=== PATIENT | female | born 1970 | race Caucasian/White ===

== ENCOUNTER → 2017-06-29 10:28 | Outpatient (CLI) | payer MEDICARE, SELFPAY ==
--- NOTE | 2017-06-29 11:07 | RAD_ITS ---
STUDY: X-RAY - LEFT SHOULDER REASON FOR EXAM: Female, 47 years old. LEFT POSTERIOR SHOULDER PAIN X 1 YEAR TECHNIQUE: 4 view(s) of the shoulder. COMPARISON: None. FINDINGS: Normal glenohumeral articulation. Normal acromioclavicular joint. Normal acromion. Normal humeral head and visualized proximal humerus. The soft tissue structures are unremarkable. Normal visualized pulmonary apex. RAD/Shoulder min 2 Views IMPRESSION: Normal x-ray examination of the shoulder. Electronically Signed: Jarocho Shell MD at 17:51 EST , Service support ,
== END ==
PROVIDERS: Family Provider Family Medicine; PCP Family Medicine; Visit Provider Family Medicine
DX: M25.512 Pain in left shoulder (principal)
CPT/HCPCS: 73030

== ENCOUNTER → 2018-03-06 15:39 | Outpatient (CLI) | payer MEDICARE, SELFPAY ==
--- NOTE | 2018-03-06 15:52 | RAD_ITS ---
STUDY: X-RAY - RIGHT ANKLE REASON FOR EXAM: Female, 47 years old. Right ankle pain. TECHNIQUE: 3 view(s) of the ankle. COMPARISON: None. FINDINGS: Normal visualized distal tibia and fibula. Normal medial and lateral malleoli. Normal tibiotalar articulation and ankle mortise. Normal visualized talus and calcaneus. The visualized subtalar, talonavicular, calcaneocuboid and tarsal articulations are normal. The soft tissue structures are unremarkable. RAD/Ankle min 3 Views IMPRESSION: Normal x-ray examination of the right ankle. Electronically Signed: Aman York MD at 11:54 EDT , Service support ,
--- NOTE | 2018-03-06 16:00 | RAD_ITS ---
STUDY: X-RAY - CERVICAL SPINE REASON FOR EXAM: Female, 47 years old. Cervical spine pain. TECHNIQUE: 5 view(s) of the cervical spine were obtained. COMPARISON: None FINDINGS: Normal anterior atlantoaxial articulation. Normal odontoid process. Normal cervical lordosis. Normal vertebral bodies and endplates. Normal disc space heights. Normal visualized intervertebral neuroforamina. The soft tissue structures are unremarkable. RAD/Cerv Spine 4 or 5 Views IMPRESSION: Normal x-ray examination of the visualized cervical spine. Electronically Signed: Aman York MD at 11:56 EDT , Service support ,
== END ==
PROVIDERS: Family Provider Family Medicine; PCP Family Medicine; Referring Provider Family Medicine; Visit Provider Family Medicine
DX: M54.2 Cervicalgia (principal); M19.071 Primary osteoarthritis, right ankle and foot; M15.9 Polyosteoarthritis, unspecified
CPT/HCPCS: 72050; 73610

== ENCOUNTER → 2018-05-09 07:43 | Outpatient (CLI) | payer MEDICARE, SELFPAY ==
--- NOTE | 2018-05-09 07:46 | BI_ITS ---
MAMMOGRAPHY - BILATERAL SCREENING 3-D JAYLIN SYNTHESIS REASON FOR EXAM: Female, 47 years old. Bilateral Screening 3-D tomosynthesis PERTINENT HISTORY: No significant family history. TECHNIQUE: 2-D mammograms and 3-D Jaylin synthesis of the breast (s) were performed. CAD was performed. COMPARISON: May 02, 2017, November 30, 2016, July 22, 2015 FINDINGS: The breast composition is almost entirely fat. There are stable lymph nodes in both axillae. Scattered benign calcifications are seen. No dense spiculated masses or suspicious microcalcifications are identified. No architectural distortion is identified. There is no skin thickening or retraction. There has been no significant change since the prior study. BI/SCREENING MAMM (CAD), BILAT IMPRESSION: No mammographic signs of malignancy. Routine yearly mammograms recommended. ASSESSMENT CATEGORY: BIRADS Category 2: Benign. A letter regarding these results will be sent to the patient by the facility within 30 days. FOLLOW UP RECOMMENDATION: Yearly follow up mammogram recommended. (A) Approximately 10% of breast cancers are not detected by mammography. A normal mammogram should not delay biopsy of a clinically suspicious abnormality. Electronically Signed: Robson Stern MD at 11:01 EST , Service support ,
== END ==
PROVIDERS: Family Provider Family Medicine; PCP Family Medicine; Visit Provider Internal Medicine Hematology & Oncology
DX: Z12.31 Encounter for screening mammogram for malignant neoplasm of breast (principal); Z85.3 Personal history of malignant neoplasm of breast
CPT/HCPCS: 77063; 77067

== ENCOUNTER → 2018-06-25 10:14 | Outpatient (CLI) | payer MEDICARE, SELFPAY ==
[2018-05-15 13:16] VITALS: BMI 40.2
--- NOTE | 2018-06-25 10:22 | RAD_ITS ---
STUDY: X-RAY - PELVIS REASON FOR EXAM: Female, 48 years old. Arthritis, attention to SI joints TECHNIQUE: One view of the pelvis was obtained. COMPARISON: None. FINDINGS: There is a non-specific bowel gas pattern. Normal visualized soft tissue structures. Normal bilateral iliac wings, sacroiliac joints and visualized sacrum. Normal visualized bilateral superior and inferior pubic rami. Normal pubic symphysis. Normal ischial tuberosities. Normal visualized right femoral head. Normal right acetabulum. Normal right hip joint. Normal visualized left femoral head. Normal left acetabulum. Normal left hip joint. RAD/Pelvis 1 or 2 Views IMPRESSION: Normal x-ray examination of the pelvis. Electronically Signed: Vinicius Schwarz MD at 20:07 EST , Service support ,
[2018-06-25 13:01] LABS: Absolute Lymphocyte Count 2.32 X10^3/ul (0.83-4.51); Absolute Neutrophil Count 4.5 X10^3/uL (2.0-7.7); Basophil# 0.04 X10^3/uL; Basophil% 0.5 % (0-1); Eosinophil# 0.21 X10^3/uL; Eosinophils% 2.8 % (0-5); Hematocrit 39.2 % (37-47); Hemoglobin 12.5 g/dl (12.0-15.0); Lymphocyte # 2.32 X10^3/ul (4.0); Lymphocyte % 30.6 % (19-41); Mean Corp Hgb Conc 31.9 g/gl (32-36); Mean Corpuscular Volume 87.7 fL (81-99); Mean Platelet Vol. 11.5 fl (6.2-12.0); Monocyte# 0.49 X10^3/uL; Monocyte% 6.5 % (0-10); Neutrophil # 4.49 X10^3/uL (2.7-7.7); Neutrophil % 59.2 % (47-70); Platelet Count 345 K/mm3 (150-450); RBC Distribution Width CV 13.9 % (11.6-14.6); RBC Distribution Width SD 43.9 fl (35.1-43.9); Red Blood Count 4.47 M/mm3 (4.2-5.4); White Blood Count 7.6 K/mm3 (4.4-11.0)
[2018-06-25 13:02] LABS: AST(SGOT) 19 U/L (15-37); Alanine Aminotransfer ALT/SGPT 39 U/L (13-56); Albumin, Serum 3.9 g/dL (3.2-5.0); Alkaline Phosphatase 83 U/L (45-117); Anion Gap 8 (5-15); BUN 12 mg/dL (7-18); BUN/Creat Ratio 14.9 RATIO (10-20); Calcium,Total 8.8 mg/dL (8.5-10.1); Chloride 107 mmol/L (98-107); EST Glomerular Filtration Rate 81 mL/min (>60); Est Glom Filt Rate - Afr Amer 98 mL/min (>60); Globulin 4.1 g/dL (2.2-4.2); Glucose 101 mg/dL (74-106); LDH 171 U/L (84-246); POSITIVE COUNT NO; POSITIVE DIFFERENTIAL NO; POSITIVE MORPHOLOGY NO; Potassium 3.6 mmol/L (3.5-5.1); Rheumatoid Factor < 10.0 IU/mL (<15); Sodium Level 142 mmol/L (136-145)
[2018-06-25 13:03] LABS: Erythrocyte Sedimentation Rate 14 mm/hr (0-20)
[2018-06-27 19:45] LABS: ANTINUCLEAR ANTIBODIES DIRECT Negative (Negative)
[2018-07-02 13:22] LABS: QNTFERON TB Mitogen Value > 10.00 IU/mL (.); QNTFERON TB Nil Value 0.02 IU/mL (.); QNTFERON TB1+ Ag Value 0.78 IU/mL (.); QNTFERON TB2+ Ag Value 0.44 IU/mL (.)
[2018-07-02 14:24] LABS: CCP IgG Antibodies 6 units (0-19); HEPATITIS B SURFACE AG Negative (Negative); HLA B27 Negative (.); Hep B Surface Antibodies Non Reactive (.); Hep C Antibodies <0.1 s/co ratio (0.0-0.9); QNTIFERON TB Positive Criteria Positive (Negative)
== END ==
PROVIDERS: Family Provider Family Medicine; PCP Family Medicine; Referring Provider Internal Medicine Rheumatology; Visit Provider Internal Medicine Rheumatology
DX: M46.90 Unspecified inflammatory spondylopathy, site unspecified (principal); K21.9 Gastro-esophageal reflux disease without esophagitis; E23.2 Diabetes insipidus; E78.5 Hyperlipidemia, unspecified; M85.80 Other specified disorders of bone density and structure, unspecified site; C96.0 Multifocal and multisystemic (disseminated) Langerhans-cell histiocytosis; N63.10 Unspecified lump in the right breast, unspecified quadrant
CPT/HCPCS: 36415; 72170; 80053; 81374; 83615; 85025; 85652; 86038; 86140; 86200; 86431; 86480; 86706; 86803; 87340

== ENCOUNTER → 2018-09-10 | Outpatient (CLI) | payer MEDICARE, SELFPAY ==
[2018-05-15 13:16] VITALS: BMI 40.2
[2018-09-10 14:16] LABS: Absolute Lymphocyte Count 1.98 X10^3/ul (0.83-4.51); Absolute Neutrophil Count 4.7 X10^3/uL (2.0-7.7); Basophil# 0.04 X10^3/uL; Basophil% 0.5 % (0-1); Eosinophil# 0.19 X10^3/uL; Eosinophils% 2.6 % (0-5); Hematocrit 41.3 % (37-47); Hemoglobin 12.9 g/dl (12.0-15.0); Lymphocyte # 1.98 X10^3/ul (4.0); Mean Corp Hgb Conc 31.2 g/gl (32-36); Mean Corpuscular Hgb 27.6 pg (27.0-32.0); Mean Corpuscular Volume 88.2 fL (81-99); Mean Platelet Vol. 11.8 fl (6.2-12.0); Monocyte# 0.44 X10^3/uL; Neutrophil # 4.68 X10^3/uL (2.7-7.7); Neutrophil % 63.8 % (47-70); Platelet Count 337 K/mm3 (150-450); RBC Distribution Width CV 14.3 % (11.6-14.6); RBC Distribution Width SD 45.6 fl (35.1-43.9); Red Blood Count 4.68 M/mm3 (4.2-5.4); White Blood Count 7.3 K/mm3 (4.4-11.0)
[2018-09-10 14:17] LABS: POSITIVE COUNT NO; POSITIVE DIFFERENTIAL NO; POSITIVE MORPHOLOGY NO
[2018-09-10 14:28] LABS: ALB/GLOB Ratio 1.1 RATIO (0.9-2.4); AST(SGOT) 13 U/L (15-37); Alanine Aminotransfer ALT/SGPT 21 U/L (13-56); Albumin, Serum 4.1 g/dL (3.2-5.0); Alkaline Phosphatase 93 U/L (45-117); Anion Gap 8 (5-15); BUN 11 mg/dL (7-18); BUN/Creat Ratio 12.1 RATIO (10-20); Calcium,Total 9.1 mg/dL (8.5-10.1); Chloride 106 mmol/L (98-107); Creatinine, Serum 0.91 mg/dL (0.55-1.02); EST Glomerular Filtration Rate 70 mL/min (>60); Est Glom Filt Rate - Afr Amer 85 mL/min (>60); Globulin 3.8 g/dL (2.2-4.2); Glucose 87 mg/dL (74-106); Potassium 3.8 mmol/L (3.5-5.1); Protein, Total 7.9 g/dL (6.4-8.2); Sodium Level 145 mmol/L (136-145)
[2018-09-10 14:34] LABS: Thyroid Stim Hormone (TSH) 1.53 uIU/mL (0.358-3.74)
[2018-09-10 14:35] LABS: Vitamin D,25 Hydroxy 20.7 ng/mL (29.95-100.01)
== END | disposition home or self-care (01) ==
LOC: MTLAB 11:54
PROVIDERS: Internal Medicine Rheumatology; Family Provider Family Medicine; PCP Family Medicine; Referring Provider Family Medicine; Visit Provider Family Medicine
DX: M46.90 Unspecified inflammatory spondylopathy, site unspecified (principal); K21.9 Gastro-esophageal reflux disease without esophagitis; E23.2 Diabetes insipidus; E78.5 Hyperlipidemia, unspecified; M85.80 Other specified disorders of bone density and structure, unspecified site; C96.0 Multifocal and multisystemic (disseminated) Langerhans-cell histiocytosis; R53.83 Other fatigue
CPT/HCPCS: 36415; 80053; 82306; 84443; 85025

== ENCOUNTER → 2018-12-10 09:19 | Outpatient (CLI) | payer MEDICARE, SELFPAY ==
[2018-05-15 13:16] VITALS: BMI 40.2
[2018-12-10 10:14] LABS: Absolute Lymphocyte Count 2.38 X10^3/uL (0.83-4.51); Absolute Neutrophil Count 5.6 X10^3/uL (2.0-7.7); Basophil# 0.06 X10^3/uL; Basophil% 0.7 % (0-1); Eosinophil# 0.34 X10^3/uL; Eosinophils% 3.8 % (0-5); Hematocrit 37.7 % (37-47); Hemoglobin 11.9 g/dL (12.0-15.0); Lymphocyte # 2.38 X10^3/ul (4.0); Lymphocyte % 26.5 % (19-41); Mean Corp Hgb Conc 31.6 g/dL (32-36); Mean Corpuscular Hgb 28.3 pg (27.0-32.0); Mean Corpuscular Volume 89.5 fL (81-99); Mean Platelet Vol. 11.1 fl (6.2-12.0); Monocyte# 0.49 X10^3/uL; Monocyte% 5.5 % (0-10); NRBC Flagged by Analyzer 0 % (0-5); Neutrophil # 5.63 X10^3/uL (2.7-7.7); Neutrophil % 62.5 % (47-70); Platelet Count 352 K/mm3 (150-450); RBC Distribution Width CV 13.6 % (11.6-14.6); RBC Distribution Width SD 44.3 fl (35.1-43.9); Red Blood Count 4.21 M/mm3 (4.2-5.4)
[2018-12-10 10:44] LABS: ALB/GLOB Ratio 0.9 RATIO (0.9-2.4); AST(SGOT) 15 U/L (15-37); Alanine Aminotransfer ALT/SGPT 26 U/L (13-56); Albumin, Serum 3.4 g/dL (3.2-5.0); Alkaline Phosphatase 85 U/L (45-117); Anion Gap 4 (5-15); BUN 10 mg/dL (7-18); BUN/Creat Ratio 12.5 RATIO (10-20); Calcium,Total 8.7 mg/dL (8.5-10.1); Chloride 106 mmol/L (98-107); EST Glomerular Filtration Rate 81 mL/min (>60); Est Glom Filt Rate - Afr Amer 98 mL/min (>60); Globulin 3.6 g/dL (2.2-4.2); Glucose 96 mg/dL (74-106); Potassium 3.6 mmol/L (3.5-5.1); Sodium Level 138 mmol/L (136-145)
[2018-12-10 11:00] LABS: Vitamin D,25 Hydroxy 29.9 ng/mL (29.95-100.01)
== END ==
PROVIDERS: Internal Medicine Rheumatology; Family Provider Family Medicine; PCP Family Medicine; Referring Provider Family Medicine; Visit Provider Family Medicine
DX: E55.9 Vitamin D deficiency, unspecified (principal); M46.90 Unspecified inflammatory spondylopathy, site unspecified; K21.9 Gastro-esophageal reflux disease without esophagitis; E23.2 Diabetes insipidus; E78.5 Hyperlipidemia, unspecified; M85.80 Other specified disorders of bone density and structure, unspecified site; C96.0 Multifocal and multisystemic (disseminated) Langerhans-cell histiocytosis; Z79.899 Other long term (current) drug therapy
CPT/HCPCS: 36415; 80053; 82306; 85025

== ENCOUNTER → 2019-02-11 12:15 | Outpatient (CLI) | payer MEDICARE, SELFPAY ==
[2018-05-15 13:16] VITALS: BMI 40.2
[2019-02-11 14:37] LABS: Absolute Lymphocyte Count 2.33 X10^3/uL (0.83-4.51); Absolute Neutrophil Count 5.4 X10^3/uL (2.0-7.7); Basophil# 0.07 X10^3/uL; Basophil% 0.8 % (0-1); Eosinophil# 0.47 X10^3/uL; Eosinophils% 5.4 % (0-5); Hematocrit 36.7 % (37-47); Hemoglobin 11.5 g/dL (12.0-15.0); Lymphocyte # 2.33 X10^3/ul (4.0); Lymphocyte % 26.6 % (19-41); Mean Corp Hgb Conc 31.3 g/dL (32-36); Mean Corpuscular Hgb 28.4 pg (27.0-32.0); Mean Corpuscular Volume 90.6 fL (81-99); Mean Platelet Vol. 11.1 fl (6.2-12.0); Monocyte# 0.49 X10^3/uL; Monocyte% 5.6 % (0-10); NRBC Flagged by Analyzer 0 % (0-5); Neutrophil # 5.35 X10^3/uL (2.7-7.7); Platelet Count 315 K/mm3 (150-450); RBC Distribution Width SD 45.9 fl (35.1-43.9); Red Blood Count 4.05 M/mm3 (4.2-5.4); White Blood Count 8.8 K/mm3 (4.4-11.0)
[2019-02-11 14:48] LABS: ALB/GLOB Ratio 0.9 RATIO (0.9-2.4); AST(SGOT) 22 U/L (15-37); Alanine Aminotransfer ALT/SGPT 48 U/L (13-56); Albumin, Serum 3.5 g/dL (3.2-5.0); Alkaline Phosphatase 89 U/L (45-117); Anion Gap 6 (5-15); BUN 11 mg/dL (7-18); BUN/Creat Ratio 14.8 RATIO (10-20); Calcium,Total 9.2 mg/dL (8.5-10.1); Chloride 105 mmol/L (98-107); Creatinine, Serum 0.74 mg/dL (0.55-1.02); EST Glomerular Filtration Rate 88 mL/min (>60); Est Glom Filt Rate - Afr Amer 107 mL/min (>60); Globulin 3.8 g/dL (2.2-4.2); Glucose 105 mg/dL (74-106); Potassium 3.8 mmol/L (3.5-5.1); Protein, Total 7.3 g/dL (6.4-8.2); Sodium Level 141 mmol/L (136-145)
== END ==
PROVIDERS: Family Provider Family Medicine; PCP Family Medicine; Referring Provider Internal Medicine Rheumatology; Visit Provider Internal Medicine Rheumatology
DX: M46.90 Unspecified inflammatory spondylopathy, site unspecified (principal); K21.9 Gastro-esophageal reflux disease without esophagitis; Z79.899 Other long term (current) drug therapy
CPT/HCPCS: 36415; 80053; 85025

== ENCOUNTER → 2019-05-12 13:31 | Outpatient (CLI) | payer MEDICARE, SELFPAY ==
[2018-05-15 13:16] VITALS: BMI 40.2
[2019-05-12 15:23] LABS: Absolute Lymphocyte Count 2.41 X10^3/uL (0.83-4.51); Absolute Neutrophil Count 4.1 X10^3/uL (2.0-7.7); Basophil# 0.06 X10^3/uL; Basophil% 0.8 % (0-1); Eosinophils% 4.1 % (0-5); Hematocrit 38.8 % (37-47); Hemoglobin 12.2 g/dL (12.0-15.0); Lymphocyte # 2.41 X10^3/ul (4.0); Lymphocyte % 33.3 % (19-41); Mean Corp Hgb Conc 31.4 g/dL (32-36); Mean Corpuscular Hgb 28.7 pg (27.0-32.0); Mean Corpuscular Volume 91.3 fL (81-99); Mean Platelet Vol. 11.2 fl (6.2-12.0); Monocyte# 0.39 X10^3/uL; Monocyte% 5.4 % (0-10); NRBC Flagged by Analyzer 0 % (0-5); Neutrophil # 4.05 X10^3/uL (2.7-7.7); Platelet Count 356 K/mm3 (150-450); RBC Distribution Width CV 13.3 % (11.6-14.6); RBC Distribution Width SD 43.9 fl (35.1-43.9); Red Blood Count 4.25 M/mm3 (4.2-5.4); White Blood Count 7.2 K/mm3 (4.4-11.0)
[2019-05-12 15:29] LABS: ALB/GLOB Ratio 0.9 RATIO (0.9-2.4); AST(SGOT) 30 U/L (15-37); Alanine Aminotransfer ALT/SGPT 56 U/L (13-56); Albumin, Serum 3.6 g/dL (3.2-5.0); Alkaline Phosphatase 97 U/L (45-117); Anion Gap 3 (5-15); BUN 10 mg/dL (7-18); BUN/Creat Ratio 12.3 RATIO (10-20); Calcium,Total 9.2 mg/dL (8.5-10.1); Chloride 109 mmol/L (98-107); Creatinine, Serum 0.81 mg/dL (0.55-1.02); EST Glomerular Filtration Rate 80 mL/min (>60); Est Glom Filt Rate - Afr Amer 97 mL/min (>60); Glucose 83 mg/dL (74-106); LDH 170 U/L (84-246); Potassium 3.8 mmol/L (3.5-5.1); Protein, Total 7.6 g/dL (6.4-8.2); Sodium Level 143 mmol/L (136-145)
[2019-05-12 15:50] LABS: Erythrocyte Sedimentation Rate 12 mm/hr (0-20)
== END ==
PROVIDERS: Internal Medicine Hematology & Oncology; Family Provider Family Medicine; PCP Family Medicine; Referring Provider Internal Medicine Rheumatology; Visit Provider Internal Medicine Rheumatology
DX: C96.0 Multifocal and multisystemic (disseminated) Langerhans-cell histiocytosis (principal); M46.90 Unspecified inflammatory spondylopathy, site unspecified; K21.9 Gastro-esophageal reflux disease without esophagitis; E23.2 Diabetes insipidus; Z79.899 Other long term (current) drug therapy
CPT/HCPCS: 36415; 80053; 83615; 85025; 85652; 86140

== ENCOUNTER → 2019-05-14 15:16 | Outpatient (CLI) | payer MEDICARE, SELFPAY ==
[2018-05-15 13:16] VITALS: BMI 40.2
--- NOTE | 2019-05-14 15:16 | BI_ITS ---
MAMMOGRAPHY - BILATERAL SCREENING 3-D TOMOSYNTHESIS REASON FOR EXAM: Female, 48 years old. fam hx mat grt gma -- RT PORT SCAR -- BILAT MOLES MARKED PERTINENT HISTORY: No significant family history. TECHNIQUE: 2-D mammograms and 3-D Tomosynthesis of the breast (s) were performed. CAD was performed. COMPARISON: May 09, 2018. FINDINGS: The breast composition is almost entirely fat. Scattered benign calcifications are seen. No dense spiculated masses or suspicious microcalcifications are identified. No architectural distortion is identified. There is no skin thickening or retraction. There has been no significant change since the prior study. BI/SCREEN MAMM (CAD) W/JAYLIN BILAT IMPRESSION: No mammographic signs of malignancy. Routine yearly mammograms recommended. ASSESSMENT CATEGORY: BIRADS Category 2: Benign. A letter regarding these results will be sent to the patient by the facility within 30 days. FOLLOW UP RECOMMENDATION: Yearly follow up mammogram recommended. (A) Approximately 10% of breast cancers are not detected by mammography. A normal mammogram should not delay biopsy of a clinically suspicious abnormality. Electronically Signed: Fahad Clement MD at 16:41 EST , Service support ,
--- NOTE | 2019-05-14 15:21 | BD_ITS ---
STUDY: DUAL ENERGY X-RAY ABSORPTIOMETRY / DXA REASON FOR EXAM: Female, 48 years old. PT NEVER MENSTRUATED -- HX OF ESTROGEN USE -- HX OF SMOKING -- TAKES CALCIUM AND MULTIVITAMIN IRREGULARLY -- HX OF TAKING ACTONEL IN PAST FOR 1 YR -- DOES VERY LITTLE EXERCISE -- HX OF BILATERAL WRIST FX''s WITH SURGERY -- NO CAROLYNE TECHNIQUE: Bone Mineral Density (BMD) measurements of lumbar spine and bilateral hips were obtained. COMPARISON: Comparison is made with prior study dated April 09, 2017. FINDINGS: Lumbar Spine (L1-L4): g/cm2 (1.027) / T-score (-1.3) / Z-score (-1.0) Findings are suggestive of osteopenia with a low fracture risk. Left Femur Total: g/cm2 (0.926) / T-score (-0.6) / Z-score (-0.2) Left Femoral Neck: g/cm2 (0.947) / T-score (-0.7) / Z-score (0.1) Right Femur Total: g/cm2 (1.026) / T-score (0.1) / Z-score (0.6) Right Femoral Neck: g/cm2 (0.910) / T-score (-0.9) / Z-score (-0.2) The T-Scores on the most recent prior examination were: Lumbar Spine (L1-L4): There has been improvement of bone density since the previous examination. Left Femur Total: which represents an improvement of 6.3%. Right Femur Total: which represents an improvement of 3.7%. BD/Dexa Bone Density Study IMPRESSION: The patient is considered osteopenic as outlined below according to World Fco Organization (WHO) criteria with a low fracture risk. There has been improvement of bone density since the previous examination. Reference Information: The T-score is the number of standard deviations above or below the standard which is normal for young adults at their peak bone mineral density. The World Health Organization (WHO) interprets the T-scores as follows: Above -1 Normal bone density Between -1 and -2.5 Osteopenia Equal to / or below -2.5 Osteoporosis As a practical clinical guideline, osteopenia may be graded as follows: Mild -1 through -1.5 Moderate -1.6 through -2.0 Severe -2.1 through -2.4 The Z-score is the number of standard deviations above or below age-matched controls. A Z-score of less than -1.5 would be considered abnormal. References: 1. NIH Osteoporosis and Related Bone Diseases http://www.osteo.org 2. International Society for Clinical Densitometry http://www.iscd.org 3. National Osteoporosis Foundation http://www.nof.org Electronically Signed: Alex Tijerina, at 12:24 EST , Service support ,
== END ==
PROVIDERS: Family Provider Family Medicine; PCP Family Medicine; Referring Provider Internal Medicine Hematology & Oncology; Visit Provider Internal Medicine Hematology & Oncology
DX: Z13.820 Encounter for screening for osteoporosis (principal); M85.80 Other specified disorders of bone density and structure, unspecified site; Z12.31 Encounter for screening mammogram for malignant neoplasm of breast
CPT/HCPCS: 77063; 77067; 77080

== ENCOUNTER → 2019-09-23 10:32 | Outpatient (CLI) | payer MEDICARE, SELFPAY ==
[2019-05-21 13:00] VITALS: BMI 39.8
[2019-09-23 12:39] LABS: Erythrocyte Sedimentation Rate 15 mm/hr (0-20)
[2019-09-23 12:41] LABS: Absolute Lymphocyte Count 2.13 X10^3/uL (0.83-4.51); Absolute Neutrophil Count 5.3 X10^3/uL (2.0-7.7); Basophil# 0.06 X10^3/uL; Basophil% 0.7 % (0-1); Eosinophil# 0.39 X10^3/uL; Eosinophils% 4.7 % (0-5); Hemoglobin 12.2 g/dL (12.0-15.0); Lymphocyte # 2.13 X10^3/ul (4.0); Lymphocyte % 25.6 % (19-41); Mean Corp Hgb Conc 32.1 g/dL (32-36); Mean Corpuscular Hgb 28.6 pg (27.0-32.0); Mean Platelet Vol. 11.1 fl (6.2-12.0); Monocyte# 0.45 X10^3/uL; Monocyte% 5.4 % (0-10); NRBC Flagged by Analyzer 0 % (0-5); Neutrophil # 5.26 X10^3/uL (2.7-7.7); Neutrophil % 63.1 % (47-70); Platelet Count 324 K/mm3 (150-450); RBC Distribution Width CV 13.4 % (11.6-14.6); RBC Distribution Width SD 43.4 fl (35.1-43.9); Red Blood Count 4.27 M/mm3 (4.2-5.4); White Blood Count 8.3 K/mm3 (4.4-11.0)
[2019-09-23 12:50] LABS: ALB/GLOB Ratio 0.9 RATIO (0.9-2.4); AST(SGOT) 28 U/L (15-37); Alanine Aminotransfer ALT/SGPT 52 U/L (13-56); Albumin, Serum 3.5 g/dL (3.2-5.0); Alkaline Phosphatase 100 U/L (45-117); Anion Gap 7 (5-15); BUN 10 mg/dL (7-18); BUN/Creat Ratio 12.3 RATIO (10-20); Calcium,Total 9.2 mg/dL (8.5-10.1); Chloride 101 mmol/L (98-107); Creatinine, Serum 0.82 mg/dL (0.55-1.02); EST Glomerular Filtration Rate 79 mL/min (>60); Est Glom Filt Rate - Afr Amer 96 mL/min (>60); Glucose 113 mg/dL (74-106); Potassium 3.7 mmol/L (3.5-5.1); Protein, Total 7.5 g/dL (6.4-8.2); Sodium Level 137 mmol/L (136-145)
== END ==
PROVIDERS: PCP Family Medicine; Referring Provider Internal Medicine Rheumatology; Visit Provider Internal Medicine Rheumatology
DX: M46.90 Unspecified inflammatory spondylopathy, site unspecified (principal); K21.9 Gastro-esophageal reflux disease without esophagitis; E23.2 Diabetes insipidus; E78.5 Hyperlipidemia, unspecified; M85.80 Other specified disorders of bone density and structure, unspecified site; C96.0 Multifocal and multisystemic (disseminated) Langerhans-cell histiocytosis; Z79.899 Other long term (current) drug therapy
CPT/HCPCS: 36415; 80053; 85025; 85652; 86140

== ENCOUNTER → 2019-11-11 11:04 | Outpatient (CLI) | payer MEDICARE, SELFPAY ==
[2019-05-21 13:00] VITALS: BMI 39.8
--- NOTE | 2019-11-11 11:26 | RAD_ITS ---
STUDY: X-RAY - LUMBAR SPINE REASON FOR EXAM: Female, 49 years old. PAIN IN LOWER BACK INTO LEFT HIP POSTERIORLY FOR 3 WEEKS. NO KNOWN INJURY. TECHNIQUE: 5 view(s) of the lumbar spine were obtained. COMPARISON: 08/28/2013 FINDINGS: Normal lumbar lordosis. There is no substantial scoliosis. There is a normal alignment of the vertebrae. Normal vertebral bodies and endplates. Normal disc space heights. The soft tissue structures are unremarkable. RAD/L/S Spine Min 4 Views IMPRESSION: Normal x-ray examination of the lumbar spine. Electronically Signed: Dickson Fostre MD at 12:20 EDT Tel , Service support ,
== END ==
PROVIDERS: PCP Family Medicine; Referring Provider Family Medicine; Visit Provider Family Medicine
DX: M54.5 Low back pain (principal)
CPT/HCPCS: 72110

== ENCOUNTER → 2019-11-20 10:40 | Outpatient (CLI) | payer MEDICARE, SELFPAY ==
[2019-05-21 13:00] VITALS: BMI 39.8
--- NOTE | 2019-11-20 10:43 | US_ITS ---
STUDY: RENAL ULTRASOUND - COMPLETE REASON FOR EXAM: Female, 49 years old. LT BACK PAIN TECHNIQUE: Ultrasound evaluation of the kidneys was performed with real-time and static delgado-scale imaging. COMPARISON: None. FINDINGS: RIGHT KIDNEY: Normal location of the right kidney, which is normal in size. The right kidney measures 10.2 cm x 5.5 cm x 3.9 cm. There is a normal cortex of the right kidney. The renal cortex measures 1.2 cm. There is no right renal mass or cyst. There are no right renal calculi. There is no right hydronephrosis. DISTAL RIGHT URETER: There is non-visualization of the distal right ureter. There is no demonstrated right ureterovesical junction calculus. There is no demonstrated right ureteral jet. LEFT KIDNEY: Normal location of the left kidney, which is normal in size. The left kidney measures 11 cm x 5.4 cm x 4.5 cm. There is a normal cortex of the left kidney. The renal cortex measures 1.2 cm. There is no left renal mass or cyst. There are no left renal calculi. There is no left hydronephrosis. DISTAL LEFT URETER: There is non-visualization of the distal left ureter. There is no demonstrated left ureterovesical junction calculus. There is no demonstrated left ureteral jet. BLADDER: The distended urinary bladder has a volume of 342 ml. There is a normal wall thickness of the distended urinary bladder. There is no demonstrated mass within the urinary bladder. There are no demonstrated bladder calculi. US/Kidney and Bladder IMPRESSION: Normal ultrasound of the kidneys and urinary bladder. Electronically Signed: Alex Tijerina, at 15:32 EDT , Service support ,
== END ==
PROVIDERS: PCP Family Medicine; Visit Provider Family Medicine
DX: M54.5 Low back pain (principal)
CPT/HCPCS: 76770

== ENCOUNTER → 2019-12-02 16:00 | Outpatient (CLI) | payer MEDICARE, SELFPAY ==
[2019-05-21 13:00] VITALS: BMI 39.8
[2019-12-02 17:53] LABS: Absolute Lymphocyte Count 2.68 X10^3/uL (0.83-4.51); Absolute Neutrophil Count 5.7 X10^3/uL (2.0-7.7); Basophil# 0.08 X10^3/uL; Basophil% 0.9 % (0-1); Eosinophil# 0.39 X10^3/uL; Eosinophils% 4.2 % (0-5); Hematocrit 39.3 % (37-47); Hemoglobin 12.3 g/dL (12.0-15.0); Lymphocyte # 2.68 X10^3/ul (4.0); Lymphocyte % 28.9 % (19-41); Mean Corp Hgb Conc 31.3 g/dL (32-36); Mean Corpuscular Hgb 29.1 pg (27.0-32.0); Mean Corpuscular Volume 92.9 fL (81-99); Monocyte# 0.44 X10^3/uL; Monocyte% 4.7 % (0-10); NRBC Flagged by Analyzer 0 % (0-5); Neutrophil # 5.66 X10^3/uL (2.7-7.7); Neutrophil % 61.1 % (47-70); Platelet Count 339 K/mm3 (150-450); RBC Distribution Width CV 13.7 % (11.6-14.6); RBC Distribution Width SD 46.8 fl (35.1-43.9); Red Blood Count 4.23 M/mm3 (4.2-5.4); White Blood Count 9.3 K/mm3 (4.4-11.0)
[2019-12-02 18:06] LABS: AST(SGOT) 28 U/L (15-37); Alanine Aminotransfer ALT/SGPT 55 U/L (13-56); Albumin, Serum 3.8 g/dL (3.2-5.0); Alkaline Phosphatase 106 U/L (45-117); Anion Gap 4 (5-15); BUN 10 mg/dL (7-18); BUN/Creat Ratio 10.9 RATIO (10-20); Calcium,Total 9.2 mg/dL (8.5-10.1); Chloride 104 mmol/L (98-107); Creatinine, Serum 0.92 mg/dL (0.55-1.02); EST Glomerular Filtration Rate 69 mL/min (>60); Est Glom Filt Rate - Afr Amer 83 mL/min (>60); Glucose 116 mg/dL (74-106); Potassium 3.6 mmol/L (3.5-5.1); Protein, Total 7.8 g/dL (6.4-8.2); Sodium Level 138 mmol/L (136-145)
== END ==
LOC: MTRAD 16:03 → MTLAB 16:03
PROVIDERS: PCP Family Medicine; Referring Provider Internal Medicine Rheumatology; Visit Provider Internal Medicine Rheumatology
DX: M46.90 Unspecified inflammatory spondylopathy, site unspecified (principal); K21.9 Gastro-esophageal reflux disease without esophagitis; E23.2 Diabetes insipidus; E78.5 Hyperlipidemia, unspecified; M85.80 Other specified disorders of bone density and structure, unspecified site; C96.0 Multifocal and multisystemic (disseminated) Langerhans-cell histiocytosis; Z79.899 Other long term (current) drug therapy
CPT/HCPCS: 36415; 80053; 85025

== ENCOUNTER → 2020-02-09 16:07 | Outpatient (CLI) | payer MEDICARE, SELFPAY ==
[2019-05-21 13:00] VITALS: BMI 39.8
[2020-02-09 18:11] LABS: Absolute Lymphocyte Count 2.77 X10^3/uL (0.83-4.51); Absolute Neutrophil Count 6.2 X10^3/uL (2.0-7.7); Basophil# 0.05 X10^3/uL; Basophil% 0.5 % (0-1); Eosinophil# 0.37 X10^3/uL; Eosinophils% 3.7 % (0-5); Hematocrit 39.6 % (37-47); Hemoglobin 12.3 g/dL (12.0-15.0); Lymphocyte # 2.77 X10^3/ul (4.0); Lymphocyte % 27.9 % (19-41); Mean Corp Hgb Conc 31.1 g/dL (32-36); Mean Corpuscular Hgb 28.5 pg (27.0-32.0); Mean Corpuscular Volume 91.9 fL (81-99); Mean Platelet Vol. 11.1 fl (6.2-12.0); Monocyte# 0.54 X10^3/uL; Monocyte% 5.4 % (0-10); NRBC Flagged by Analyzer 0 % (0-5); Neutrophil # 6.15 X10^3/uL (2.7-7.7); Neutrophil % 61.9 % (47-70); Platelet Count 379 K/mm3 (150-450); RBC Distribution Width CV 13.9 % (11.6-14.6); RBC Distribution Width SD 46.5 fl (35.1-43.9); Red Blood Count 4.31 M/mm3 (4.2-5.4); White Blood Count 9.9 K/mm3 (4.4-11.0)
[2020-02-09 18:34] LABS: ALB/GLOB Ratio 0.9 RATIO (0.9-2.4); AST(SGOT) 29 U/L (15-37); Alanine Aminotransfer ALT/SGPT 50 U/L (13-56); Albumin, Serum 3.9 g/dL (3.2-5.0); Alkaline Phosphatase 110 U/L (45-117); Anion Gap 6 (5-15); BUN 10 mg/dL (7-18); BUN/Creat Ratio 11.5 RATIO (10-20); Calcium,Total 9.4 mg/dL (8.5-10.1); Chloride 103 mmol/L (98-107); Creatinine, Serum 0.87 mg/dL (0.55-1.02); EST Glomerular Filtration Rate 73 mL/min (>60); Est Glom Filt Rate - Afr Amer 89 mL/min (>60); Globulin 4.2 g/dL (2.2-4.2); Glucose 90 mg/dL (74-106); Potassium 3.6 mmol/L (3.5-5.1); Protein, Total 8.1 g/dL (6.4-8.2); Sodium Level 138 mmol/L (136-145)
== END ==
PROVIDERS: PCP Family Medicine; Referring Provider Internal Medicine Rheumatology; Visit Provider Internal Medicine Rheumatology
DX: M46.90 Unspecified inflammatory spondylopathy, site unspecified (principal); Z79.899 Other long term (current) drug therapy; K21.9 Gastro-esophageal reflux disease without esophagitis; E23.2 Diabetes insipidus; E78.5 Hyperlipidemia, unspecified; M85.80 Other specified disorders of bone density and structure, unspecified site; C96.0 Multifocal and multisystemic (disseminated) Langerhans-cell histiocytosis
CPT/HCPCS: 36415; 80053; 85025

== ENCOUNTER → 2020-02-17 | Outpatient (CLI) | payer MEDICARE, SELFPAY ==
[2019-05-21 13:00] VITALS: BMI 39.8
--- NOTE | 2020-02-17 09:23 | RAD_ITS ---
STUDY: X-RAY - RIGHT SHOULDER REASON FOR EXAM: Female, 49 years old. PAIN IN RIGHT SHOULDER JOINT FOR A COUPLE OF WEEKS, NOT GETTING ANY BETTER. NO KNOWN INJURY. TECHNIQUE: 4 view(s) of the shoulder. COMPARISON: None. FINDINGS: Normal glenohumeral articulation. Normal acromioclavicular joint. Normal acromion. Normal humeral head and visualized proximal humerus. The soft tissue structures are unremarkable. Normal visualized pulmonary apex. RAD/Shoulder min 2 Views IMPRESSION: Normal x-ray examination of the shoulder. Electronically Signed: Lalit Carter MD ([place]) at 10:55 EDT , Service support ,
== END | disposition home or self-care (01) ==
LOC: MTRAD 09:21
PROVIDERS: PCP Family Medicine; Referring Provider Family Medicine; Visit Provider Family Medicine
DX: M25.511 Pain in right shoulder (principal)
CPT/HCPCS: 73030

== ENCOUNTER → 2020-04-25 15:49 | Outpatient (CLI) | payer MEDICARE, SELFPAY ==
[2019-05-21 13:00] VITALS: BMI 39.8
[2020-04-25 17:47] LABS: Absolute Lymphocyte Count 2.49 X10^3/uL (0.83-4.51); Basophil# 0.06 X10^3/uL; Basophil% 0.6 % (0-1); Eosinophil# 0.35 X10^3/uL; Eosinophils% 3.7 % (0-5); Hematocrit 37.8 % (37-47); Hemoglobin 11.7 g/dL (12.0-15.0); Lymphocyte # 2.49 X10^3/ul (4.0); Lymphocyte % 26.1 % (19-41); Mean Corpuscular Hgb 28.4 pg (27.0-32.0); Mean Corpuscular Volume 91.7 fL (81-99); Mean Platelet Vol. 10.7 fl (6.2-12.0); Monocyte# 0.58 X10^3/uL; Monocyte% 6.1 % (0-10); NRBC Flagged by Analyzer 0 % (0-5); Neutrophil # 6.03 X10^3/uL (2.7-7.7); Neutrophil % 63.2 % (47-70); Platelet Count 368 K/mm3 (150-450); RBC Distribution Width CV 13.7 % (11.6-14.6); RBC Distribution Width SD 45.6 fl (35.1-43.9); Red Blood Count 4.12 M/mm3 (4.2-5.4); White Blood Count 9.5 K/mm3 (4.4-11.0)
[2020-04-25 18:25] LABS: ALB/GLOB Ratio 0.9 RATIO (0.9-2.4); AST(SGOT) 21 U/L (15-37); Alanine Aminotransfer ALT/SGPT 45 U/L (13-56); Albumin, Serum 3.5 g/dL (3.2-5.0); Alkaline Phosphatase 103 U/L (45-117); Anion Gap 6 (5-15); BUN 12 mg/dL (7-18); BUN/Creat Ratio 14.7 RATIO (10-20); Calcium,Total 9.3 mg/dL (8.5-10.1); Chloride 105 mmol/L (98-107); Creatinine, Serum 0.82 mg/dL (0.55-1.02); EST Glomerular Filtration Rate 79 mL/min (>60); Est Glom Filt Rate - Afr Amer 95 mL/min (>60); Globulin 3.9 g/dL (2.2-4.2); Glucose 111 mg/dL (74-106); Potassium 3.5 mmol/L (3.5-5.1); Protein, Total 7.4 g/dL (6.4-8.2); Sodium Level 140 mmol/L (136-145)
== END ==
PROVIDERS: PCP Family Medicine; Referring Provider Internal Medicine Rheumatology; Visit Provider Internal Medicine Rheumatology
DX: M46.90 Unspecified inflammatory spondylopathy, site unspecified (principal); M18.0 Bilateral primary osteoarthritis of first carpometacarpal joints; K21.9 Gastro-esophageal reflux disease without esophagitis; E23.2 Diabetes insipidus; E78.5 Hyperlipidemia, unspecified; M85.80 Other specified disorders of bone density and structure, unspecified site; C96.0 Multifocal and multisystemic (disseminated) Langerhans-cell histiocytosis; Z79.899 Other long term (current) drug therapy
CPT/HCPCS: 36415; 80053; 85025

== ENCOUNTER → 2020-05-18 08:32 | Outpatient (CLI) | payer MEDICARE, SELFPAY ==
[2019-05-21 13:00] VITALS: BMI 39.8
--- NOTE | 2020-05-18 08:33 | BI_ITS ---
MAMMOGRAPHY - BILATERAL SCREENING REASON FOR EXAM: Female, 49 years old. Routine annual screening examination. PERTINENT HISTORY: Non-contributory. TECHNIQUE: Digital bilateral breast jaylin (3D mammographic acquisition) in the CC and MLO projections. 2-D mediolateral oblique (MLO) and craniocaudad (CC) views of both breasts were obtained. CAD: Full Field Digital Mammography with Computer Added Detection was performed. COMPARISON: Comparison is made with prior study dated 11/12/2019 and 05/09/2018. FINDINGS: Breast Composition: The breasts are almost entirely fatty. There are no dominant masses or suspicious calcifications. Stable benign-appearing bilateral axillary lymph nodes. No other significant abnormalities are identified. There has been no significant change since the prior study. BI/SCREEN MAMM (CAD) W/JAYLIN BILAT IMPRESSION: Stable bilateral screening mammogram. Yearly follow-up mammogram recommended. (A) ASSESSMENT CATEGORY: BIRADS Category 2: Benign. A letter regarding these results will be sent to the patient by the facility within 30 days. Approximately 10% of breast cancers are not detected by mammography. A normal mammogram should not delay biopsy of a clinically suspicious abnormality. [id number] Electronically Signed: Alex Tijerina, at 9:50 EST , Service support ,
== END ==
PROVIDERS: PCP Family Medicine; Referring Provider Internal Medicine Hematology & Oncology; Visit Provider Internal Medicine Hematology & Oncology
DX: Z12.31 Encounter for screening mammogram for malignant neoplasm of breast (principal)
CPT/HCPCS: 77063; 77067

== ENCOUNTER → 2020-08-05 16:25 | Outpatient (CLI) | payer MEDICARE, SELFPAY ==
[2020-05-23 11:33] VITALS: BMI 41.1
[2020-08-05 17:24] LABS: Absolute Lymphocyte Count 3.13 X10^3/uL (0.83-4.51); Absolute Neutrophil Count 8.4 X10^3/uL (2.0-7.7); Basophil# 0.08 X10^3/uL; Basophil% 0.6 % (0-1); Eosinophil# 0.37 X10^3/uL; Eosinophils% 2.9 % (0-5); Hematocrit 39.2 % (37-47); Hemoglobin 12.2 g/dL (12.0-15.0); Lymphocyte # 3.13 X10^3/ul (4.0); Lymphocyte % 24.8 % (19-41); Mean Corp Hgb Conc 31.1 g/dL (32-36); Mean Corpuscular Volume 93.1 fL (81-99); Mean Platelet Vol. 10.4 fl (6.2-12.0); Monocyte# 0.61 X10^3/uL; Monocyte% 4.8 % (0-10); NRBC Flagged by Analyzer 0 % (0-5); Neutrophil # 8.35 X10^3/uL (2.7-7.7); Neutrophil % 66.4 % (47-70); Platelet Count 373 K/mm3 (150-450); RBC Distribution Width CV 14.3 % (11.6-14.6); RBC Distribution Width SD 48.1 fl (35.1-43.9); Red Blood Count 4.21 M/mm3 (4.2-5.4); White Blood Count 12.6 K/mm3 (4.4-11.0)
[2020-08-05 17:50] LABS: ALB/GLOB Ratio 0.9 RATIO (0.9-2.4); AST(SGOT) 16 U/L (15-37); Alanine Aminotransfer ALT/SGPT 30 U/L (13-56); Albumin, Serum 3.6 g/dL (3.2-5.0); Alkaline Phosphatase 117 U/L (45-117); Anion Gap 6 (5-15); BUN 16 mg/dL (7-18); BUN/Creat Ratio 17.4 RATIO (10-20); Calcium,Total 9.1 mg/dL (8.5-10.1); Chloride 101 mmol/L (98-107); Creatinine, Serum 0.92 mg/dL (0.55-1.02); EST Glomerular Filtration Rate 69 mL/min (>60); Est Glom Filt Rate - Afr Amer 83 mL/min (>60); Globulin 4.1 g/dL (2.2-4.2); Glucose 100 mg/dL (74-106); Potassium 3.5 mmol/L (3.5-5.1); Protein, Total 7.7 g/dL (6.4-8.2); Sodium Level 138 mmol/L (136-145)
== END ==
PROVIDERS: PCP Family Medicine; Referring Provider Internal Medicine Rheumatology; Visit Provider Internal Medicine Rheumatology
DX: M46.90 Unspecified inflammatory spondylopathy, site unspecified (principal); M18.0 Bilateral primary osteoarthritis of first carpometacarpal joints; K21.9 Gastro-esophageal reflux disease without esophagitis; E23.2 Diabetes insipidus; E78.5 Hyperlipidemia, unspecified; M85.80 Other specified disorders of bone density and structure, unspecified site; C96.0 Multifocal and multisystemic (disseminated) Langerhans-cell histiocytosis; Z79.899 Other long term (current) drug therapy
CPT/HCPCS: 36415; 80053; 85025

== ENCOUNTER → 2020-11-09 10:51 | Outpatient (CLI) | payer MEDICARE, SELFPAY ==
[2020-05-23 11:33] VITALS: BMI 41.1
[2020-11-09 12:20] LABS: Absolute Lymphocyte Count 2.34 X10^3/uL (0.83-4.51); Absolute Neutrophil Count 5.8 X10^3/uL (2.0-7.7); Basophil# 0.08 X10^3/uL; Basophil% 0.9 % (0-1); Eosinophil# 0.29 X10^3/uL; Eosinophils% 3.2 % (0-5); Hematocrit 39.6 % (37-47); Hemoglobin 12.2 g/dL (12.0-15.0); Lymphocyte # 2.34 X10^3/ul (0.83-4.51); Lymphocyte % 25.7 % (19-41); Mean Corp Hgb Conc 30.8 g/dL (32-36); Mean Corpuscular Hgb 28.2 pg (27.0-32.0); Mean Corpuscular Volume 91.5 fL (81-99); Mean Platelet Vol. 11.2 fl (6.2-12.0); Monocyte# 0.54 X10^3/uL; Monocyte% 5.9 % (0-10); NRBC Flagged by Analyzer 0 % (0-5); Neutrophil # 5.78 X10^3/uL (2.7-7.7); Neutrophil % 63.5 % (47-70); Platelet Count 371 K/mm3 (150-450); RBC Distribution Width CV 14.5 % (11.6-14.6); RBC Distribution Width SD 48.5 fl (35.1-43.9); Red Blood Count 4.33 M/mm3 (4.2-5.4); White Blood Count 9.1 K/mm3 (4.4-11.0)
[2020-11-09 12:53] LABS: ALB/GLOB Ratio 0.9 RATIO (0.9-2.4); AST(SGOT) 19 U/L (15-37); Alanine Aminotransfer ALT/SGPT 24 U/L (13-56); Albumin, Serum 3.6 g/dL (3.2-5.0); Alkaline Phosphatase 102 U/L (45-117); Anion Gap 3 (5-15); BUN 11 mg/dL (7-18); BUN/Creat Ratio 11.8 RATIO (10-20); Calcium,Total 9.5 mg/dL (8.5-10.1); Chloride 107 mmol/L (98-107); Creatinine, Serum 0.93 mg/dL (0.55-1.02); EST Glomerular Filtration Rate 68 mL/min (>60); Est Glom Filt Rate - Afr Amer 82 mL/min (>60); Globulin 4.1 g/dL (2.2-4.2); Glucose 106 mg/dL (74-106); Potassium 3.7 mmol/L (3.5-5.1); Protein, Total 7.7 g/dL (6.4-8.2); Sodium Level 141 mmol/L (136-145)
== END ==
PROVIDERS: PCP Family Medicine; Referring Provider Internal Medicine Rheumatology; Visit Provider Internal Medicine Rheumatology
DX: M46.90 Unspecified inflammatory spondylopathy, site unspecified (principal); M18.0 Bilateral primary osteoarthritis of first carpometacarpal joints; K21.9 Gastro-esophageal reflux disease without esophagitis; E23.2 Diabetes insipidus; E78.5 Hyperlipidemia, unspecified; M85.80 Other specified disorders of bone density and structure, unspecified site; C96.0 Multifocal and multisystemic (disseminated) Langerhans-cell histiocytosis; Z79.899 Other long term (current) drug therapy
CPT/HCPCS: 36415; 80053; 85025

== ENCOUNTER → 2021-02-09 16:06 | Outpatient (CLI) | payer MEDICARE, SELFPAY ==
[2021-02-09 17:31] LABS: Absolute Lymphocyte Count 2.27 X10^3/uL (0.83-4.51); Absolute Neutrophil Count 6.3 X10^3/uL (2.0-7.7); Basophil# 0.06 X10^3/uL; Basophil% 0.6 % (0-1); Eosinophils% 3.2 % (0-5); Hematocrit 38.2 % (37-47); Lymphocyte # 2.27 X10^3/ul (0.83-4.51); Mean Corp Hgb Conc 31.4 g/dL (32-36); Mean Corpuscular Hgb 27.9 pg (27.0-32.0); Mean Corpuscular Volume 88.8 fL (81-99); Mean Platelet Vol. 11.4 fl (6.2-12.0); Monocyte# 0.47 X10^3/uL; NRBC Flagged by Analyzer 0 % (0-5); Neutrophil # 6.31 X10^3/uL (2.7-7.7); Neutrophil % 66.7 % (47-70); Platelet Count 380 K/mm3 (150-450); RBC Distribution Width CV 14.7 % (11.6-14.6); RBC Distribution Width SD 46.6 fl (35.1-43.9); White Blood Count 9.5 K/mm3 (4.4-11.0)
[2021-02-09 17:50] LABS: ALB/GLOB Ratio 0.8 RATIO (0.9-2.4); AST(SGOT) 23 U/L (15-37); Alanine Aminotransfer ALT/SGPT 40 U/L (13-56); Albumin, Serum 3.4 g/dL (3.2-5.0); Alkaline Phosphatase 101 U/L (45-117); Anion Gap 8 (5-15); BUN 10 mg/dL (7-18); BUN/Creat Ratio 11.3 RATIO (10-20); Calcium,Total 9.5 mg/dL (8.5-10.1); Chloride 102 mmol/L (98-107); Creatinine, Serum 0.89 mg/dL (0.55-1.02); EST Glomerular Filtration Rate 71 mL/min (>60); Est Glom Filt Rate - Afr Amer 86 mL/min (>60); Globulin 4.2 g/dL (2.2-4.2); Glucose 117 mg/dL (74-106); Potassium 3.6 mmol/L (3.5-5.1); Protein, Total 7.6 g/dL (6.4-8.2); Sodium Level 140 mmol/L (136-145)
== END ==
PROVIDERS: PCP Family Medicine; Referring Provider Internal Medicine Rheumatology; Visit Provider Internal Medicine Rheumatology
DX: M46.90 Unspecified inflammatory spondylopathy, site unspecified (principal); M18.0 Bilateral primary osteoarthritis of first carpometacarpal joints; K21.9 Gastro-esophageal reflux disease without esophagitis; E23.2 Diabetes insipidus; E78.5 Hyperlipidemia, unspecified; M85.80 Other specified disorders of bone density and structure, unspecified site; C96.0 Multifocal and multisystemic (disseminated) Langerhans-cell histiocytosis; Z79.899 Other long term (current) drug therapy
CPT/HCPCS: 36415; 80053; 85025

== ENCOUNTER → 2021-04-05 | Outpatient (CLI) | payer MEDICARE, SELFPAY ==
--- NOTE | 2021-04-04 16:30 | LES_PTH ---
PATIENT: KRISTEN CHEN LOC: [facility] U#:[id number] AGE/SX: 50/F ROOM: RE04/05/[address]: Dr. Jhonny Elias MD : 1970 BED: DIS: 04/05/2021 SPEC #: [id number] RECD: 04/05/21 10:04 STATUS: FEDERICO MICHELL #: [id number] TAMY: 04/04/21 16:[address]: Jhonny Elias DEPT: SURGICAL PATHOLOGY RECD BY: Radha Macias ENTERED: 04/05/21 10:31 SP TYPE: Lesion OTHR DR: Dr. Isma Glover, DO Tissues: Skin of eyelid, NOS Procedures: Surgery Specimen Level IV HEADER OPERATION: Removal of right lower lid lesion PRE-OP DIAGNOSIS: Right lower lid lesion TISSUE SUBMITTED: Right lower lid lesion MICROSCOPIC DIAGNOSIS Right lower lid lesion, biopsy: Atypical squamous epithelial lesion. 04/07/21 COMMENT Correlation with clinical findings and appropriate follow up are necessary. Complete excision of the lesion is suggested, if clinically indicated. Results are reported to Dr. Elias?s office on 04/07/21. MICROSCOPIC DESCRIPTION Slides are reviewed. GROSS DESCRIPTION Received is one container labeled with the patient name and designated right lower lid lesion. The specimen consists of a round piece of mendoza white skin that measures 0.3 x 0.3 x 0.2 cm. The specimen is totally submitted in one cassette. /SJ:cc 04/05/21 TC:5 CPT:15162
== END | disposition home or self-care (01) ==
LOC: LABSPEC 10:14
PROVIDERS: PCP Family Medicine; Visit Provider Ophthalmology
DX: D23.112 Other benign neoplasm of skin of right lower eyelid, including canthus (principal)
CPT/HCPCS: 88305

== ENCOUNTER → 2021-05-09 08:38 | Outpatient (CLI) | payer MEDICARE, SELFPAY ==
[2019-05-21 13:00] VITALS: BMI 39.8
[2021-05-09 09:49] LABS: Absolute Lymphocyte Count 2.75 X10^3/uL (0.83-4.51); Absolute Neutrophil Count 6.7 X10^3/uL (2.0-7.7); Basophil# 0.07 X10^3/uL; Basophil% 0.7 % (0-1); Eosinophil# 0.29 X10^3/uL; Eosinophils% 2.8 % (0-5); Hematocrit 39.7 % (37-47); Hemoglobin 12.3 g/dL (12.0-15.0); Lymphocyte # 2.75 X10^3/ul (0.83-4.51); Lymphocyte % 26.3 % (19-41); Mean Corpuscular Hgb 28.2 pg (27.0-32.0); Mean Corpuscular Volume 91.1 fL (81-99); Mean Platelet Vol. 10.7 fl (6.2-12.0); Monocyte# 0.58 X10^3/uL; Monocyte% 5.6 % (0-10); NRBC Flagged by Analyzer 0 % (0-5); Neutrophil # 6.68 X10^3/uL (2.7-7.7); Neutrophil % 63.9 % (47-70); Platelet Count 393 K/mm3 (150-450); RBC Distribution Width CV 14.5 % (11.6-14.6); RBC Distribution Width SD 47.8 fl (35.1-43.9); Red Blood Count 4.36 M/mm3 (4.2-5.4); White Blood Count 10.4 K/mm3 (4.4-11.0)
[2021-05-09 10:09] LABS: ALB/GLOB Ratio 0.8 RATIO (0.9-2.4); AST(SGOT) 16 U/L (15-37); Alanine Aminotransfer ALT/SGPT 30 U/L (13-56); Albumin, Serum 3.2 g/dL (3.2-5.0); Alkaline Phosphatase 93 U/L (45-117); Anion Gap 6 (5-15); BUN 8 mg/dL (7-18); BUN/Creat Ratio 10.2 RATIO (10-20); Calcium,Total 9.1 mg/dL (8.5-10.1); Chloride 106 mmol/L (98-107); Creatinine, Serum 0.78 mg/dL (0.55-1.02); EST Glomerular Filtration Rate 82 mL/min (>60); Est Glom Filt Rate - Afr Amer 100 mL/min (>60); Globulin 4.2 g/dL (2.2-4.2); Glucose 115 mg/dL (74-106); Potassium 3.7 mmol/L (3.5-5.1); Protein, Total 7.4 g/dL (6.4-8.2); Sodium Level 142 mmol/L (136-145)
== END ==
PROVIDERS: PCP Family Medicine; Visit Provider Internal Medicine Rheumatology
DX: M46.90 Unspecified inflammatory spondylopathy, site unspecified (principal); M18.0 Bilateral primary osteoarthritis of first carpometacarpal joints; K21.9 Gastro-esophageal reflux disease without esophagitis; E23.2 Diabetes insipidus; E78.5 Hyperlipidemia, unspecified; M85.80 Other specified disorders of bone density and structure, unspecified site; C96.0 Multifocal and multisystemic (disseminated) Langerhans-cell histiocytosis; Z79.899 Other long term (current) drug therapy
CPT/HCPCS: 36415; 80053; 85025

== ENCOUNTER 2021-07-13 09:57 | Outpatient (CLI) | payer MEDICARE, SELFPAY ==
--- NOTE | 2021-07-13 10:01 | BI_ITS ---
MAMMOGRAPHY - BILATERAL SCREENING REASON FOR EXAM: Female, 51 years old. Routine annual screening examination. PERTINENT HISTORY: Grandmother with breast cancer. TECHNIQUE: Digital bilateral breast jaylin (3D mammographic acquisition) in the CC and MLO projections. 2-D mediolateral oblique (MLO) and craniocaudad (CC) views of both breasts were obtained. CAD: Full Field Digital Mammography with Computer Added Detection was performed. COMPARISON: Comparison is made with prior study dated 05/18/2020 and 05/14/2019. FINDINGS: Breast Composition: The breasts are almost entirely fatty. There are no dominant masses or suspicious calcifications. Stable benign-appearing bilateral axillary lymph nodes. No other significant abnormalities are identified. There has been no significant change since the prior study. BI/SCRN MAMM (CAD)W/JAYLIN BILAT IMPRESSION: Stable bilateral screening mammogram. Yearly follow-up mammogram recommended. (A) ASSESSMENT CATEGORY: BIRADS Category 2: Benign. A letter regarding these results will be sent to the patient by the facility within 30 days. Approximately 10% of breast cancers are not detected by mammography. A normal mammogram should not delay biopsy of a clinically suspicious abnormality. [id number] Electronically Signed: Alex Tijerina MD at 12:20 EST ,
== END 2021-07-13 23:59 | disposition home or self-care (01) ==
LOC: OPBI 09:59
PROVIDERS: PCP Family Medicine; Visit Provider Internal Medicine Hematology & Oncology
DX: Z12.31 Encounter for screening mammogram for malignant neoplasm of breast (principal)
CPT/HCPCS: 77063; 77067

== ENCOUNTER 2021-08-10 16:18 | Outpatient (CLI) | payer MEDICARE, SELFPAY ==
[2021-08-10 17:54] LABS: Absolute Lymphocyte Count 2.78 X10^3/uL (0.83-4.51); Basophil# 0.08 X10^3/uL; Basophil% 0.9 % (0-1); Eosinophil# 0.37 X10^3/uL; Eosinophils% 4.2 % (0-5); Hematocrit 39.7 % (37-47); Hemoglobin 12.5 g/dL (12.0-15.0); Lymphocyte # 2.78 X10^3/ul (0.83-4.51); Lymphocyte % 31.8 % (19-41); Mean Corp Hgb Conc 31.5 g/dL (32-36); Mean Corpuscular Hgb 28.3 pg (27.0-32.0); Mean Corpuscular Volume 89.8 fL (81-99); Monocyte# 0.48 X10^3/uL; Monocyte% 5.5 % (0-10); NRBC Flagged by Analyzer 0 % (0-5); Neutrophil % 57.1 % (47-70); Platelet Count 394 K/mm3 (150-450); RBC Distribution Width CV 14.1 % (11.6-14.6); RBC Distribution Width SD 46.1 fl (35.1-43.9); Red Blood Count 4.42 M/mm3 (4.2-5.4); White Blood Count 8.8 K/mm3 (4.4-11.0)
[2021-08-10 18:26] LABS: ALB/GLOB Ratio 0.9 RATIO (0.9-2.4); AST(SGOT) 33 U/L (15-37); Alanine Aminotransfer ALT/SGPT 57 U/L (13-56); Albumin, Serum 3.6 g/dL (3.2-5.0); Alkaline Phosphatase 96 U/L (45-117); Anion Gap 5 (5-15); BUN 10 mg/dL (7-18); BUN/Creat Ratio 11.8 RATIO (10-20); Calcium,Total 9.1 mg/dL (8.5-10.1); Chloride 105 mmol/L (98-107); Creatinine, Serum 0.85 mg/dL (0.55-1.02); EST Glomerular Filtration Rate 75 mL/min (>60); Est Glom Filt Rate - Afr Amer 91 mL/min (>60); Glucose 125 mg/dL (74-106); Potassium 3.5 mmol/L (3.5-5.1); Protein, Total 7.6 g/dL (6.4-8.2); Sodium Level 140 mmol/L (136-145)
== END 2021-08-10 23:59 | disposition home or self-care (01) ==
LOC: MTLAB 16:19
PROVIDERS: PCP Family Medicine; Referring Provider Internal Medicine Rheumatology; Visit Provider Internal Medicine Rheumatology
DX: M46.90 Unspecified inflammatory spondylopathy, site unspecified (principal); C96.0 Multifocal and multisystemic (disseminated) Langerhans-cell histiocytosis; E23.2 Diabetes insipidus; M18.0 Bilateral primary osteoarthritis of first carpometacarpal joints; K21.9 Gastro-esophageal reflux disease without esophagitis; E78.5 Hyperlipidemia, unspecified; M85.80 Other specified disorders of bone density and structure, unspecified site; Z79.899 Other long term (current) drug therapy
CPT/HCPCS: 36415; 80053; 85025

== ENCOUNTER → 2021-09-19 | Outpatient (CLI) | payer MEDICARE, SELFPAY ==
--- NOTE | 2021-09-19 12:25 | BD_ITS ---
STUDY: DUAL ENERGY X-RAY ABSORPTIOMETRY / DXA REASON FOR EXAM: Female, 51 years old. M810. Amenorrhea. TECHNIQUE: Bone Mineral Density (BMD) measurements of lumbar spine and bilateral hips were obtained. COMPARISON: Comparison is made with prior study dated 05/14/2019. FINDINGS: Lumbar Spine (L1-L4): g/cm2 (0.815) / T-score (-2.1) / Z-score (-1.3) Findings are suggestive of osteopenia with a high fracture risk. Left Femur Total: g/cm2 (0.862) / T-score (-0.7) / Z-score (-0.1) Left Femoral Neck: g/cm2 (0.705) / T-score (-1.3) / Z-score (-0.5) Right Femur Total: g/cm2 (0.922) / T-score (-0.2) / Z-score (0.4) Right Femoral Neck: g/cm2 (0.730) / T-score (-1.1) / Z-score (-0.3) The T-Scores on the most recent prior examination were: Lumbar Spine (L1-L4): There has been worsening of bone density since the previous examination. Left Femur Total: which represents no significant change. . Right Femur Total: which represents a worsening of 3.9%. BD/Dexa Bone Density Study IMPRESSION: The patient is considered osteopenic as outlined below according to World Fco Organization (WHO) criteria with a high fracture risk. There has been worsening of bone density since the previous examination. Reference Information: The T-score is the number of standard deviations above or below the standard which is normal for young adults at their peak bone mineral density. The World Health Organization (WHO) interprets the T-scores as follows: Above -1 Normal bone density Between -1 and -2.5 Osteopenia Equal to / or below -2.5 Osteoporosis As a practical clinical guideline, osteopenia may be graded as follows: Mild -1 through -1.5 Moderate -1.6 through -2.0 Severe -2.1 through -2.4 The Z-score is the number of standard deviations above or below age-matched controls. A Z-score of less than -1.5 would be considered abnormal. References: 1. NIH Osteoporosis and Related Bone Diseases www osteo.org 2. International Society for Clinical Densitometry www iscd.org 3. National Osteoporosis Foundation www nof.org Electronically Signed: Aelx Tijerina MD at 12:44 EDT ,
== END | disposition home or self-care (01) ==
LOC: OPBD 12:19
PROVIDERS: PCP Family Medicine; Referring Provider Family Medicine; Visit Provider Family Medicine
DX: M81.0 Age-related osteoporosis without current pathological fracture (principal)
CPT/HCPCS: 77080

== ENCOUNTER → 2021-10-16 | Outpatient (CLI) | payer MEDICARE, SELFPAY ==
[2021-10-16 10:29] LABS: Absolute Lymphocyte Count 4.03 X10^3/uL (0.83-4.51); Absolute Neutrophil Count 9.5 X10^3/uL (2.0-7.7); Basophil% 0.7 % (0-1); Eosinophil# 0.26 X10^3/uL; Eosinophils% 1.7 % (0-5); Hematocrit 36.8 % (37-47); Hemoglobin 11.7 g/dL (12.0-15.0); Lymphocyte # 4.03 X10^3/ul (0.83-4.51); Lymphocyte % 26.9 % (19-41); Mean Corp Hgb Conc 31.8 g/dL (32-36); Mean Corpuscular Hgb 28.3 pg (27.0-32.0); Mean Corpuscular Volume 88.9 fL (81-99); Mean Platelet Vol. 10.7 fl (6.2-12.0); Monocyte# 0.82 X10^3/uL; Monocyte% 5.5 % (0-10); NRBC Flagged by Analyzer 0 % (0-5); Neutrophil # 9.49 X10^3/uL (2.7-7.7); Neutrophil % 63.3 % (47-70); POSITIVE MORPHOLOGY YES; Platelet Count 364 K/mm3 (150-450); RBC Distribution Width CV 14.3 % (11.6-14.6); RBC Distribution Width SD 45.7 fl (35.1-43.9); Red Blood Count 4.14 M/mm3 (4.2-5.4)
[2021-10-16 10:34] LABS: ALB/GLOB Ratio 0.9 RATIO (0.9-2.4); AST(SGOT) 18 U/L (15-37); Alanine Aminotransfer ALT/SGPT 41 U/L (13-56); Albumin, Serum 3.2 g/dL (3.2-5.0); Alkaline Phosphatase 85 U/L (45-117); Anion Gap 7 (5-15); BUN 13 mg/dL (7-18); BUN/Creat Ratio 18.8 RATIO (10-20); Calcium,Total 8.1 mg/dL (8.5-10.1); Chloride 103 mmol/L (98-107); Cholesterol 156 mg/dL (200); Creatinine, Serum 0.69 mg/dL (0.55-1.02); EST Glomerular Filtration Rate 95 mL/min (>60); Est Glom Filt Rate - Afr Amer 115 mL/min (>60); Globulin 3.5 g/dL (2.2-4.2); Glucose 108 mg/dL (74-106); High Density Lipoprotein 48 mg/dL; Potassium 3.4 mmol/L (3.5-5.1); Protein, Total 6.7 g/dL (6.4-8.2); Sodium Level 137 mmol/L (136-145); Triglycerides 84 mg/dL; Very Low Density Lipoprotein 17 mg/dL (5-40)
[2021-10-16 10:36] LABS: Vitamin D,25 Hydroxy 35.5 ng/mL
[2021-10-16 10:39] LABS: Differential Indicated SCAN CRITERIA MET
[2021-10-16 13:09] LABS: Platelet Estimate ADEQUATE (ADEQ); Red Cell Morphology NORM C+C NORMAL (NORM C&C); Smudge Cells 1+
[2021-10-17 13:11] LABS: Pathologist Review Reviewed
== END | disposition home or self-care (01) ==
LOC: MTLAB 08:47
PROVIDERS: PCP Family Medicine; Referring Provider Family Medicine; Visit Provider Family Medicine
DX: Z00.00 Encounter for general adult medical examination without abnormal findings (principal); C96.0 Multifocal and multisystemic (disseminated) Langerhans-cell histiocytosis; M46.90 Unspecified inflammatory spondylopathy, site unspecified; E23.2 Diabetes insipidus; E55.9 Vitamin D deficiency, unspecified; M18.0 Bilateral primary osteoarthritis of first carpometacarpal joints; K21.9 Gastro-esophageal reflux disease without esophagitis; E78.5 Hyperlipidemia, unspecified; M85.80 Other specified disorders of bone density and structure, unspecified site; Z79.899 Other long term (current) drug therapy
CPT/HCPCS: 36415; 80053; 80061; 82306; 85025

== ENCOUNTER → 2022-01-08 | Outpatient (CLI) | payer MEDICARE, SELFPAY ==
[2022-01-08 12:06] LABS: Absolute Lymphocyte Count 2.24 X10^3/uL (0.83-4.51); Absolute Neutrophil Count 5.3 X10^3/uL (2.0-7.7); Basophil# 0.07 X10^3/uL; Basophil% 0.8 % (0-1); Eosinophil# 0.33 X10^3/uL; Eosinophils% 3.9 % (0-5); Hematocrit 40.6 % (37-47); Lymphocyte # 2.24 X10^3/ul (0.83-4.51); Lymphocyte % 26.7 % (19-41); Mean Corpuscular Hgb 28.1 pg (27.0-32.0); Mean Corpuscular Volume 87.9 fL (81-99); Mean Platelet Vol. 11.5 fl (6.2-12.0); Monocyte# 0.47 X10^3/uL; Monocyte% 5.6 % (0-10); NRBC Flagged by Analyzer 0 % (0-5); Neutrophil # 5.25 X10^3/uL (2.7-7.7); Neutrophil % 62.5 % (47-70); Platelet Count 374 K/mm3 (150-450); RBC Distribution Width CV 13.2 % (11.6-14.6); RBC Distribution Width SD 42.4 fl (35.1-43.9); Red Blood Count 4.62 M/mm3 (4.2-5.4); White Blood Count 8.4 K/mm3 (4.4-11.0)
[2022-01-08 12:36] LABS: ALB/GLOB Ratio 0.8 RATIO (0.9-2.4); AST(SGOT) 28 U/L (15-37); Alanine Aminotransfer ALT/SGPT 44 U/L (13-56); Albumin, Serum 3.4 g/dL (3.2-5.0); Alkaline Phosphatase 90 U/L (45-117); Anion Gap 7 (5-15); BUN 8 mg/dL (7-18); BUN/Creat Ratio 9.5 RATIO (10-20); Chloride 106 mmol/L (98-107); Creatinine, Serum 0.84 mg/dL (0.55-1.02); EST Glomerular Filtration Rate 76 mL/min (>60); Est Glom Filt Rate - Afr Amer 91 mL/min (>60); Globulin 4.2 g/dL (2.2-4.2); Glucose 126 mg/dL (74-106); Potassium 3.6 mmol/L (3.5-5.1); Protein, Total 7.6 g/dL (6.4-8.2); Sodium Level 140 mmol/L (136-145)
== END | disposition home or self-care (01) ==
PROVIDERS: PCP Family Medicine; Referring Provider Internal Medicine Rheumatology; Visit Provider Internal Medicine Rheumatology
DX: M46.90 Unspecified inflammatory spondylopathy, site unspecified (principal); C96.0 Multifocal and multisystemic (disseminated) Langerhans-cell histiocytosis; E23.2 Diabetes insipidus; M18.0 Bilateral primary osteoarthritis of first carpometacarpal joints; K21.9 Gastro-esophageal reflux disease without esophagitis; E78.5 Hyperlipidemia, unspecified; M85.80 Other specified disorders of bone density and structure, unspecified site; Z79.899 Other long term (current) drug therapy
CPT/HCPCS: 36415; 80053; 85025

== ENCOUNTER → 2022-04-03 | Outpatient (CLI) | payer MEDICARE, SELFPAY ==
[2022-04-03 17:53] LABS: Absolute Lymphocyte Count 2.91 X10^3/uL (0.83-4.51); Absolute Neutrophil Count 6.2 X10^3/uL (2.0-7.7); Basophil# 0.07 X10^3/uL; Basophil% 0.7 % (0-1); Eosinophil# 0.38 X10^3/uL; Eosinophils% 3.7 % (0-5); Hematocrit 40.9 % (37-47); Hemoglobin 12.9 g/dL (12.0-15.0); Lymphocyte # 2.91 X10^3/ul (0.83-4.51); Lymphocyte % 28.5 % (19-41); Mean Corp Hgb Conc 31.5 g/dL (32-36); Mean Corpuscular Hgb 27.2 pg (27.0-32.0); Mean Corpuscular Volume 86.1 fL (81-99); Mean Platelet Vol. 10.9 fl (6.2-12.0); Monocyte# 0.53 X10^3/uL; Monocyte% 5.2 % (0-10); NRBC Flagged by Analyzer 0 % (0-5); Neutrophil # 6.22 X10^3/uL (2.7-7.7); Platelet Count 380 K/mm3 (150-450); RBC Distribution Width CV 13.8 % (11.6-14.6); Red Blood Count 4.75 M/mm3 (4.2-5.4); White Blood Count 10.2 K/mm3 (4.4-11.0)
[2022-04-03 18:35] LABS: ALB/GLOB Ratio 0.8 RATIO (0.9-2.4); AST(SGOT) 21 U/L (15-37); Alanine Aminotransfer ALT/SGPT 42 U/L (13-56); Albumin, Serum 3.6 g/dL (3.2-5.0); Alkaline Phosphatase 98 U/L (45-117); Anion Gap 6 (5-15); BUN 11 mg/dL (7-18); BUN/Creat Ratio 12.1 RATIO (10-20); Calcium,Total 9.4 mg/dL (8.5-10.1); Chloride 105 mmol/L (98-107); Creatinine, Serum 0.91 mg/dL (0.55-1.02); EST Glomerular Filtration Rate 69 mL/min (>60); Est Glom Filt Rate - Afr Amer 83 mL/min (>60); Globulin 4.3 g/dL (2.2-4.2); Glucose 105 mg/dL (74-106); Potassium 3.9 mmol/L (3.5-5.1); Protein, Total 7.9 g/dL (6.4-8.2); Sodium Level 140 mmol/L (136-145)
== END | disposition home or self-care (01) ==
LOC: MTLAB 16:38
PROVIDERS: PCP Family Medicine; Referring Provider Internal Medicine Rheumatology; Visit Provider Internal Medicine Rheumatology
DX: M46.90 Unspecified inflammatory spondylopathy, site unspecified (principal); C96.0 Multifocal and multisystemic (disseminated) Langerhans-cell histiocytosis; E23.2 Diabetes insipidus; M18.0 Bilateral primary osteoarthritis of first carpometacarpal joints; K21.9 Gastro-esophageal reflux disease without esophagitis; E78.5 Hyperlipidemia, unspecified; M85.80 Other specified disorders of bone density and structure, unspecified site; Z79.899 Other long term (current) drug therapy
CPT/HCPCS: 36415; 80053; 85025

== ENCOUNTER → 2022-06-04 | Outpatient (CLI) | payer MEDICARE, SELFPAY ==
--- NOTE | 2022-06-04 13:00 | RAD_ITS ---
STUDY: X-RAY - LUMBAR SPINE REASON FOR EXAM: Female, 51 years old. DEGENERATION OF LUMBOSACRAL INTERVERTEBRAL DISC TECHNIQUE: 4 view(s) of the lumbar spine were obtained. COMPARISON: November 11, 2019 Lumbar Spine x-ray FINDINGS: Normal lumbar lordosis. There is no substantial scoliosis. There is a normal alignment of the vertebrae. There is mild multilevel spondylosis without acute loss of height or alignment. Normal disc space heights. This visualized facet arthropathy at the level of the L5-S1 levels. There is a subtle lucency within the level of the pars interarticularis on the left. There may be an age indeterminant nondisplaced defect within the left pars interarticularis. The soft tissue structures are unremarkable. RAD/L/S Spine Min 4 Views IMPRESSION: Stable mild degenerative change of the lumbar spine. Question possible nondisplaced pars defect on the left side at the level of L5. If Pain persists recommend consideration for follow-up MRI. Electronically Signed: Daniela Peña MD at 6:11 EST ,
== END | disposition home or self-care (01) ==
PROVIDERS: PCP Family Medicine; Referring Provider Nurse Practitioner Family; Visit Provider Nurse Practitioner Family
DX: M51.37 Other intervertebral disc degeneration, lumbosacral region (principal); M54.17 Radiculopathy, lumbosacral region
CPT/HCPCS: 72110

== ENCOUNTER → 2022-07-09 | Outpatient (CLI) | payer MEDICARE, SELFPAY ==
[2022-07-09 16:00] LABS: Basophil# 0.08 X10^3/uL; Basophil% 0.6 % (0-1); Eosinophil# 0.06 X10^3/uL; Eosinophils% 0.5 % (0-5); Hematocrit 37.1 % (37-47); Hemoglobin 11.5 g/dL (12.0-15.0); Lymphocyte % 15.8 % (19-41); Mean Corpuscular Hgb 28.5 pg (27.0-32.0); Mean Corpuscular Volume 92.1 fL (81-99); Mean Platelet Vol. 12.3 fl (6.2-12.0); Monocyte# 0.92 X10^3/uL; Monocyte% 6.9 % (0-10); NRBC Flagged by Analyzer 0 % (0-5); Neutrophil # 9.98 X10^3/uL (2.7-7.7); Platelet Count 356 K/mm3 (150-450); RBC Distribution Width CV 14.7 % (11.6-14.6); RBC Distribution Width SD 49.9 fl (35.1-43.9); Red Blood Count 4.03 M/mm3 (4.2-5.4); White Blood Count 13.3 K/mm3 (4.4-11.0)
[2022-07-09 16:04] LABS: ALB/GLOB Ratio 0.9 RATIO (0.9-2.4); AST(SGOT) 21 U/L (15-37); Alanine Aminotransfer ALT/SGPT 40 U/L (13-56); Albumin, Serum 3.5 g/dL (3.2-5.0); Alkaline Phosphatase 81 U/L (45-117); Anion Gap 6 (5-15); BUN 14 mg/dL (7-18); BUN/Creat Ratio 16.5 RATIO (10-20); Chloride 107 mmol/L (98-107); Creatinine, Serum 0.85 mg/dL (0.55-1.02); EST Glomerular Filtration Rate 75 mL/min (>60); Est Glom Filt Rate - Afr Amer 90 mL/min (>60); Globulin 3.8 g/dL (2.2-4.2); Glucose 132 mg/dL (74-106); Potassium 3.2 mmol/L (3.5-5.1); Protein, Total 7.3 g/dL (6.4-8.2); Sodium Level 142 mmol/L (136-145)
== END | disposition home or self-care (01) ==
LOC: MTLAB 11:26
PROVIDERS: PCP Family Medicine; Visit Provider Internal Medicine Rheumatology
DX: M46.90 Unspecified inflammatory spondylopathy, site unspecified (principal); C96.0 Multifocal and multisystemic (disseminated) Langerhans-cell histiocytosis; E23.2 Diabetes insipidus; Z79.899 Other long term (current) drug therapy; M18.0 Bilateral primary osteoarthritis of first carpometacarpal joints; K21.9 Gastro-esophageal reflux disease without esophagitis; E78.5 Hyperlipidemia, unspecified; M85.80 Other specified disorders of bone density and structure, unspecified site
CPT/HCPCS: 36415; 80053; 85025

== ENCOUNTER → 2022-07-16 | Outpatient (CLI) | payer MEDICARE, SELFPAY ==
--- NOTE | 2022-07-16 09:06 | BI_ITS ---
MAMMOGRAPHY - BILATERAL SCREENING REASON FOR EXAM: Female, 52 years old. Routine annual screening examination. PERTINENT HISTORY: Grandmother with breast cancer. TECHNIQUE: Digital bilateral breast jaylin (3D mammographic acquisition) in the CC and MLO projections. 2-D mediolateral oblique (MLO) and craniocaudad (CC) views of both breasts were obtained. CAD: Full Field Digital Mammography with Computer Added Detection was performed. COMPARISON: Comparison is made with prior study of July 13, 2021 and May 18, 2020. FINDINGS: Breast Composition: The breasts are almost entirely fatty. There are no dominant masses or suspicious calcifications. Stable benign-appearing bilateral axillary lymph nodes. No other significant abnormalities are identified. There has been no significant change since the prior study. BI/SCRN MAMM (CAD)W/JAYLIN BILAT IMPRESSION: Stable bilateral screening mammogram. Yearly follow-up mammogram recommended. (A) ASSESSMENT CATEGORY: BIRADS Category 2: Benign. A letter regarding these results will be sent to the patient by the facility within 30 days. Approximately 10% of breast cancers are not detected by mammography. A normal mammogram should not delay biopsy of a clinically suspicious abnormality. [id number] Electronically Signed: Alex Tijerina MD at 10:30 EST ,
== END | disposition home or self-care (01) ==
LOC: OPBI 09:05
PROVIDERS: PCP Family Medicine; Visit Provider Internal Medicine Hematology & Oncology
DX: Z12.31 Encounter for screening mammogram for malignant neoplasm of breast (principal)
CPT/HCPCS: 77063; 77067

== ENCOUNTER → 2022-08-21 | Outpatient (CLI) | payer MEDICARE, SELFPAY ==
--- NOTE | 2022-08-21 10:21 | MRI_ITS ---
INDICATION: Low back pain. EXAMINATION: MR Spine Lumbar W/O Contrast TECHNIQUE: Multiplanar and multisequence MR images of the lumbar spine. IV Contrast Dosage and Agent: None. COMPARISON: Lumbar spine x-rays June 04, 2022. FINDINGS: VERTEBRAE: Vertebral body heights are preserved. No marrow edema or fracture. Visualized sacral ala are unremarkable. VERTEBRAL ALIGNMENT: No spondylolisthesis. There is preservation of the normal lumbar lordosis. CORD: Normal position and signal intensity of the conus medullaris. Conus terminates normally at L1. SOFT TISSUES: Normal caliber aorta. Normal appearing kidneys, no hydronephrosis. No paraspinous soft tissue abnormality. AXIAL IMAGES: T11-12: Small left central disc protrusion. No spinal canal or foraminal stenosis. T12-L1: Small left central disc protrusion. No significant spinal canal or foraminal narrowing. L1-2 through L5-S1: Normal disc morphology. No disc protrusion. No spinal canal or foraminal stenosis. MRI/Spine Lumbar (Routine) IMPRESSION: Small lower thoracic disc protrusions without spinal canal stenosis or nerve root impingement. No lumbar disc protrusion, spinal canal or foraminal stenosis. Electronically Signed: Adelfo Dinero MD at 18:22 EDT ,
== END | disposition home or self-care (01) ==
PROVIDERS: PCP Family Medicine
DX: M47.817 Spondylosis without myelopathy or radiculopathy, lumbosacral region (principal)
CPT/HCPCS: 72148

== ENCOUNTER → 2022-09-10 | Outpatient (CLI) | payer MEDICARE, SELFPAY ==
[2022-09-10 17:58] LABS: Absolute Lymphocyte Count 3.15 X10^3/uL (0.83-4.51); Absolute Neutrophil Count 8.3 X10^3/uL (2.0-7.7); Basophil# 0.08 X10^3/uL; Basophil% 0.6 % (0-1); Eosinophils% 2.4 % (0-5); Hematocrit 41.1 % (37-47); Hemoglobin 12.8 g/dL (12.0-15.0); Lymphocyte # 3.15 X10^3/ul (0.83-4.51); Mean Corp Hgb Conc 31.1 g/dL (32-36); Mean Corpuscular Hgb 28.1 pg (27.0-32.0); Mean Corpuscular Volume 90.1 fL (81-99); Mean Platelet Vol. 10.8 fl (6.2-12.0); Monocyte# 0.67 X10^3/uL; Monocyte% 5.3 % (0-10); NRBC Flagged by Analyzer 0 % (0-5); Neutrophil # 8.29 X10^3/uL (2.7-7.7); Neutrophil % 65.8 % (47-70); Platelet Count 364 K/mm3 (150-450); RBC Distribution Width SD 46.5 fl (35.1-43.9); Red Blood Count 4.56 M/mm3 (4.2-5.4); White Blood Count 12.6 K/mm3 (4.4-11.0)
[2022-09-10 18:32] LABS: ALB/GLOB Ratio 0.9 RATIO (0.9-2.4); AST(SGOT) 23 U/L (15-37); Alanine Aminotransfer ALT/SGPT 50 U/L (13-56); Albumin, Serum 3.5 g/dL (3.2-5.0); Alkaline Phosphatase 108 U/L (45-117); Anion Gap 6 (5-15); BUN 14 mg/dL (7-18); BUN/Creat Ratio 14.9 RATIO (10-20); Calcium,Total 9.1 mg/dL (8.5-10.1); Chloride 102 mmol/L (98-107); Creatinine, Serum 0.94 mg/dL (0.55-1.02); EST Glomerular Filtration Rate 67 mL/min (>60); Est Glom Filt Rate - Afr Amer 80 mL/min (>60); Glucose 106 mg/dL (74-106); Protein, Total 7.5 g/dL (6.4-8.2); Sodium Level 137 mmol/L (136-145)
== END | disposition home or self-care (01) ==
LOC: MTLAB 16:20
PROVIDERS: PCP Family Medicine; Referring Provider Internal Medicine Rheumatology; Visit Provider Internal Medicine Rheumatology
DX: M46.90 Unspecified inflammatory spondylopathy, site unspecified (principal); E23.2 Diabetes insipidus; M18.0 Bilateral primary osteoarthritis of first carpometacarpal joints; K21.9 Gastro-esophageal reflux disease without esophagitis; E78.5 Hyperlipidemia, unspecified; M85.80 Other specified disorders of bone density and structure, unspecified site; Z79.899 Other long term (current) drug therapy
CPT/HCPCS: 36415; 80053; 85025

== ENCOUNTER 2022-12-17 17:09 | Observation (INO) | payer MEDICARE, SELFPAY ==
[2022-12-17 17:11] VITALS: BP 178/96; PULSE 90; RESP 16; TEMP 35.8; O2SAT 98; BMI 42.3
--- NOTE | 2022-12-17 17:27 | CT_ITS ---
We are attempting to reach an attending provider to discuss findings. An addendum with communication details will be sent when the communication is complete. INDICATION: Neuro deficit, acute, stroke suspected EXAMINATION: CT BRAIN WITH CONTRAST TECHNIQUE: Noncontrast axial images were obtained of the brain. Subsequently, routine carotid CT angiogram protocol was performed without and with IV contrast. In addition, images were obtained of the [place] of [place]. NASCET criteria using the distal ICAs for comparison were used for evaluation of stenoses. 3D reconstructions were reviewed. A radiation dose optimization technique was used for this scan. IV Contrast dosage and agent: 100 cc [id number] COMPARISON: None. FINDINGS: --CT BRAIN: BRAIN PARENCHYMA: No intra- or extra-axial hemorrhage. No evidence of acute infarct. No intracranial mass or mass effect. Posterior fossa structures are unremarkable. CSF SPACES: Appropriate for age. No hydrocephalus. Basal cisterns are patent. CALVARIUM, SKULL BASE, PARANASAL SINUSES AND MASTOID AIR CELLS: Clear. No discrete lytic or blastic abnormalities. ASPECTS Score for Acute Strokes: 10 --CTA NECK: AORTIC ARCH AND BRANCHES: Vessel origins patent. RIGHT CCA: No occlusion, significant stenosis or dissection. RIGHT ICA: No occlusion, significant stenosis or dissection. LEFT CCA: No occlusion, significant stenosis or dissection. LEFT ICA: No occlusion, significant stenosis or dissection. RIGHT VERTEBRAL ARTERY: No occlusion, significant stenosis or dissection. LEFT VERTEBRAL ARTERY: No occlusion, significant stenosis or dissection. NECK SOFT TISSUES: Unremarkable. --CTA HEAD: --Anterior circulation: ICAs: No significant stenosis at the intracranial/visualized segments. ACAs: No significant stenosis at the visualized segments. Left A1 segment absent. ACOM: Present. MCAs: No significant stenosis at the visualized segments. --Posterior circulation: PCOMs: Patient on the right. vocational trainer: No significant stenosis at the visualized segments. origin left ALTERATION MANAGER. BASILAR ARTERY: No significant stenosis. VERTEBRAL ARTERIES: No significant stenosis at the intradural/visualized segments. No evidence of intracranial aneurysm or vascular malformation. IMPRESSION: Negative CT Brain, CTA Carotid, and CTA Brain. Electronically Signed: Alexsander Can MD at 18:51 EDT , INDICATION: Neuro deficit, acute, stroke suspected EXAMINATION: CT BRAIN - CT Head or Brain W/O Contrast Injection TECHNIQUE: Multiple axial images were obtained of the head without intravenous contrast. A radiation dose optimization technique was used for this scan. IV Contrast dosage and agent: None. COMPARISON: None. FINDINGS: BRAIN PARENCHYMA: No intra- or extra-axial hemorrhage. No evidence of acute infarct. No intracranial mass or mass effect. Posterior fossa structures are unremarkable. CSF SPACES: Appropriate for age. No hydrocephalus. Basal cisterns are patent. CALVARIUM, SKULL BASE, PARANASAL SINUSES AND MASTOID AIR CELLS: Clear. No discrete lytic or blastic abnormalities. ORBITS: Both globes, extraocular muscles, optic nerves and retrobulbar fat appear unremarkable. ASPECTS Score for Acute Strokes: 10 CT/STROKE CTA Head AND Neck W/Con IMPRESSION: No acute intracranial findings. Electronically Signed: Alexsander Can MD at 18:52 EDT ,
--- NOTE | 2022-12-17 17:27 | EKG12_ITS ---
Test Reason : NEURO Blood Pressure : / mmHG Vent. Rate : 083 BPM Atrial Rate : 083 BPM P-R Int : 134 ms QRS Dur : 074 ms QT Int : 352 ms P-R-T Axes : 014 038 039 degrees QTc Int : 413 ms Normal sinus rhythm Normal ECG Confirmed by MELODY BRIGHT, MARIUM ([id number]), online content editor RYANNE PRYOR ([id number]) on 12/18/2022 9:42:05 AM Referred By: NADEEM Confirmed By:MARIUM OLIVER MD
--- NOTE | 2022-12-17 17:28 | EDS_ITS ---
HPI History of Present Illness Chief Complaint: Numb/Ting Narrative Narrative: 82-year-old female presenting with numbness and tingling to the right side of her upper and lower lip, right side of her tongue, slight facial droop around the right side of her mouth. She states she developed a headache 3 days ago. She did not think anything of it because she has chronic migraines. She took some amitriptyline and her headache is a little bit improved. She still has a 5/10 pain in her head. She states that yesterday about 3 PM is when all the numbness and tingling started. She is unable to close her right eye. She has no problems with her arms or legs. No numbness or tingling anywhere else but her face. No dizziness or lightheadedness. No chest pain or shortness of breath. [facility] Medical History (Updated 12/17/22 @ 19:[address] Elizabeth Aggarwal MD) Allergic rhinitis Arthritis Chronic back pain COVID-19 DI (diabetes insipidus) Former tobacco use Gout Heart murmur Histiocytosis X Hyperlipidemia Morbid obesity Sleep apnea Home Medications desmopressin 0.2 mg tablet 0.4 mg PO BID 04/14/15 [History Last Taken 12/17/22] Calcium Citrate-Vit D3 Tablet 1,200 mg PO DAILY 05/01/17 [History Last Taken 12/17/22] cholecalciferol (vitamin D3) 50 mcg (2,000 unit) capsule 2,000 unit PO DAILY 05/01/17 [History Last Taken 12/17/22] loratadine 10 mg tablet 10 mg PO DAILY PRN Allergies 05/01/17 [History Last Taken 12/17/22] niacin 500 mg tablet 500 mg PO QDAY 05/01/17 [History Last Taken 12/17/22] omeprazole 20 mg capsule,delayed release 20 mg PO DAILY 05/01/17 [History Last Taken 12/17/22] alendronate 70 mg tablet 70 mg PO .WEEKLY 12/17/22 [History Last Taken 12/11/22] cephalexin 500 mg capsule 500 mg PO Q12H 12/17/22 [History Last Taken 12/17/22] clobetasol 0.05 % topical cream 1 applic topical BID 12/17/22 [History Last Taken 12/17/22] Allergy/AdvReac Type Severity Reaction Status Date / Time No Known Allergies Allergy Verified 12/17/22 17:10 Family History (Updated 12/17/22 @ 19:[address] Elizabeth Aggarwal MD) Mother Arthritis Diabetes Hypertension High cholesterol Thyroid disorder Grandmother Breast cancer Great grandmother Surgical History History of shoulder surgery Hx of cholecystectomy Status post wrist surgery Social History Smoking Status: Former smoker second hand exposure: No alcohol intake: never substance use type: does not use caffeine: Yes what type of physical activity do you participate in: walking frequency: 1-2 times per week seatbelt use: always ROS ROS ED Constitutional Constitutional ED: Denies subjective or sweats Eyes Eyes: Denies blurry vision or change in vision ENT ENT ED: Denies rhinorrhea or sore throat Cardiovascular Cardiovascular: Denies chest pain Respiratory/Chest Respiratory/Chest: Denies cough or dyspnea Gastrointestinal Gastrointestinal: Denies abdominal pain, melena, nausea or vomiting Genitourinary Genitourinary ED: Denies dysuria or hematuria Musculoskeletal Musculoskeletal: Reports neck pain; Denies arthralgias Integumentary Denies abscess Psychiatric Psychiatric: Denies anxiety or depression EXAM Physical Exam Const Vital Signs: 12/17/22 17:11 12/17/22 17:32 12/17/22 19:20 Temperature 96.4 F L 97 F L Temperature Source Temporal Temporal Pulse Rate 90 83 Respiratory Rate 16 27 H Blood Pressure 178/96 H 160/94 H Blood Pressure Mean 123 116 Pulse Ox 98 97 Oxygen Delivery Method Room Air Room Air Room Air 12/17/22 19:10 Temperature Temperature Source Pulse Rate Respiratory Rate 18 Blood Pressure Blood Pressure Mean Pulse Ox Oxygen Delivery Method Positive well nourished General Appearance ED: NAD HEENT Reports normocephalic and TM's clear Tympanic Membrane ED: Yes TM's clear Eyes PERRL and EOMs intact bilaterally Neck no lymphadenopathy Resp normal respiratory effort and clear to auscultation bilaterally Auscultation: Negative for rales, rhonchi or wheezes GI non-tender and non-distended Neuro oriented x3 Sensorium / Orientation: awake and alert Coordination / Balance: [id number] test normal and [id number] test normal Speech: speech normal Motor Exam: strength 5/5 throughout NIHSS NIHSS Initial: 1a Level of Consciousness: 0 1b LOC Questions (Score 2 if aphasic/stupor): 0 1c LOC Commands (Only score 1st attempt): 0 2 Best Gaze (If aphasic, use reflexive mvmts.): 0 3 Visual: 0 4 Facial Palsy: 1 5 Motor Arm Right (UN = amputation/fusion): 0 5 Motor Arm Left: 0 6 Motor Leg Right: 0 6 Motor Leg Left: 0 7 Limb ataxia (Only + if out of proportion): 0 8 Sensory (Aphasia/stupor=0 or 1, coma=2): 1 9 Best Language: 0 10 Dysarthria (mute, coma=2, intubated=UN): 0 11 Extinction and Inattention (only scored if +): 0 Total Score: 2 MDM MDM MDM Narrative Medical decision making narrative: Patient presenting with facial droop, tongue and lip numbness. Headache started 3 days ago. The numbness started about 3 PM yesterday. Patient reports she did not think of anything of the headache initially because she has headaches chronically. No fevers or chills. No neck stiffness. No involvement of the arms or legs. Patient feels otherwise healthy. On examination she is an NIH of 2. She has sparing of the forehead however which would be consistent with a central lesion. Her right eye does not close when she blinks. Differential includes atypical migraine, Starkey's palsy, stroke, intracranial hemorrhage, intracranial aneurysm, malignancy. Will obtain CT and CTA of the brain. CBC and BMP will be obtained as well. EKG and high-sensitivity troponin will also be obtained to assess for dysrhythmia and ischemia. Chest x-ray will be obtained as well. I did offer to treat the patient's headache which is 5/10 but she states she does not want anything. CT brain and CTA were negative. Lab work unremarkable. High-sensitivity troponin less than 3. EKG sinus rhythm ventricular rate of 83 bpm without sign of ischemic change or ectopy. Chest x- ray my interpretation shows no acute process. Radiologist interprets this and agrees. Given the patient's symptoms I will have her admitted to the hospital. Discussed with hospitalist Impression: 1. Headache 2. Strokelike symptoms Lab Data Attestation: I reviewed the patient's lab results. Labs: Laboratory Results - last 24 hr 12/17/22 12/17/22 17:35 17:38 WBC 9.5 RBC 4.64 Hgb 12.8 Hct 39.8 MCV 85.8 MCH 27.6 MCHC 32.2 RDW Std Deviation 42.0 RDW Coeff of Raymond 13.4 Plt Count 308 MPV 10.8 Immature Gran % (Auto) 0.400 Neut % (Auto) 62.8 Lymph % (Auto) 26.8 [place] % (Auto) 5.6 Eos % (Auto) 3.9 Baso % (Auto) 0.5 Absolute Neuts (auto) 5.9 Absolute Lymphs (auto) 2.53 Nucleated RBC % 0 PT 13.0 INR 1.0 APTT 26.7 Sodium 136 Potassium 3.6 Chloride 101 Carbon Dioxide 28.0 Anion Gap 7 BUN 9 Creatinine 0.88 Estim Creat Clear Calc 112.35 Est GFR (MDRD) Af Amer 87 Est GFR (MDRD) Non-Af 72 BUN/Creatinine Ratio 10.2 Glucose 180 H Calcium 9.5 Magnesium 2.0 Troponin I High Sens < 3 L POC Glucose 173 H Radiography Diagnostic Testing: Clinical Impression(s) from Imaging Studies Head/Neck CTA 12/17/22 17:27 IMPRESSION: No acute intracranial findings. Electronically Signed: Alexsander Can MD at 18:52 EDT , ADDENDUM: 12/17/22 1900 IMPRESSION: No acute intracranial findings. N.B. : The above Results were Read Back by Alexsander Can MD to Prince Healy DO, and understanding confirmed on 12/17/2022 18:54:01 (ET). Electronically Signed: Alexsander Can MD at 18:52 EDT , Chest X-Ray 12/17/22 18:05 IMPRESSION: No radiographic evidence of acute cardiopulmonary disease. Electronically Signed: Alexsander Can MD at 18:25 EDT , Discharge Plan Triage Chief Complaint: Numb/Ting Other Complaint: Headache ED Provider: Prince Healy Dx/Rx/DC Orders Primary Care Provider: Isma Glover
[2022-12-17 17:32] VITALS: BMI 42.3
[2022-12-17 17:59] LABS: Absolute Lymphocyte Count 2.53 X10^3/uL (0.83-4.51); Absolute Neutrophil Count 5.9 X10^3/uL (2.0-7.7); Basophil# 0.05 X10^3/uL; Basophil% 0.5 % (0-1); Eosinophil# 0.37 X10^3/uL; Eosinophils% 3.9 % (0-5); Hematocrit 39.8 % (37-47); Hemoglobin 12.8 g/dL (12.0-15.0); Lymphocyte # 2.53 X10^3/ul (0.83-4.51); Lymphocyte % 26.8 % (19-41); Mean Corp Hgb Conc 32.2 g/dL (32-36); Mean Corpuscular Hgb 27.6 pg (27.0-32.0); Mean Corpuscular Volume 85.8 fL (81-99); Mean Platelet Vol. 10.8 fl (6.2-12.0); Monocyte# 0.53 X10^3/uL; Monocyte% 5.6 % (0-10); NRBC Flagged by Analyzer 0 % (0-5); Neutrophil # 5.93 X10^3/uL (2.7-7.7); Neutrophil % 62.8 % (47-70); Platelet Count 308 K/mm3 (150-450); RBC Distribution Width CV 13.4 % (11.6-14.6); Red Blood Count 4.64 M/mm3 (4.2-5.4); White Blood Count 9.5 K/mm3 (4.4-11.0)
[2022-12-17 18:00] LABS: Bedside Glucose 173 mg/dL (74-106)
--- NOTE | 2022-12-17 18:05 | RAD_ITS ---
INDICATION: Neuro deficit, acute, stroke suspected EXAMINATION/TECHNIQUE: X-RAY - portable upright AP chest x-ray COMPARISON: 03/07/2015 FINDINGS: LINES/DEVICES: None. LUNGS: No consolidation, edema or effusion. No pneumothorax. MEDIASTINUM AND CARDIOVASCULAR STRUCTURES: Cardiac silhouette not enlarged. Central airways and mediastinal contour are unremarkable for the degree of rotation. BONES AND SOFT TISSUES: No acute changes. RAD/Chest 1 View IMPRESSION: No radiographic evidence of acute cardiopulmonary disease. Electronically Signed: Alexsander Can MD at 18:25 EDT ,
[2022-12-17 18:12] LABS: Partial Thromboplast Time 26.7 Seconds (24.1-36.2)
[2022-12-17 18:15] LABS: Anion Gap 7 (5-15); BUN 9 mg/dL (7-18); BUN/Creat Ratio 10.2 RATIO (10-20); Calcium,Total 9.5 mg/dL (8.5-10.1); Chloride 101 mmol/L (98-107); Creatinine, Serum 0.88 mg/dL (0.55-1.02); EST Glomerular Filtration Rate 72 mL/min (>60); Est Glom Filt Rate - Afr Amer 87 mL/min (>60); Estimated Creatinine Clearance 112.35 ml/min; Glucose 180 mg/dL (74-106); Potassium 3.6 mmol/L (3.5-5.1); Sodium Level 136 mmol/L (136-145); Troponin-I HS < 3 pg/mL (3.0-54.0)
[2022-12-17 19:10] VITALS: RESP 18
[2022-12-17 19:20] VITALS: BP 160/94; PULSE 83; RESP 27; TEMP 36.1; O2SAT 97
--- NOTE | 2022-12-17 19:21 | PCM.HP.STD ---
HPI - General General Date of Admission: 12/17/22 Date of Service: 12/17/22 Chief Complaint: Facial paresthesias, droop. HPI Narrative The patient is a 52 y/o F w/ PMHx: Inflammatory arthritis, Chronic migraines, GERD, Diabetes insipidus on desmopressin, Allergic Rhinitis, Morbid obesity, Former tobacco use, Histiocytosis X following with Dr. Gonzales (involving bone, possible BM, blood per patient s/p chemotherapy and radiation with remission/relapse until 30s) who presents to the [facility] ED on 12/17/22 with history of onset R posterior headache, stabbing with mild light and sound sensitive ED different than her normal migraine as she usually has this in the front with onset the evening prior to current presentation and abnormal tongue sensation and at approximately 4 PM on day of presentation sudden onset numbness and tingling to the right side of her upper and lower lip as well as the right side of her tongue in addition to a slight facial droop with of note self administration of sumatriptan as well as amitriptyline with some improvement of her headache however still reporting it upon presentation 5 out of 10 in severity. She is still able to close her right eye however some lag but is able to move her eyebrows and her forehead without any issue. She does report that 3 weeks prior to current presentation on her left cheek she did have some atypical lesions which initially they thought was shingles however she did follow-up with dermatology and they felt it was more likely poison giovany regardless she received a course of steroid therapy and does note significant fatigue since then. Initial NIH stroke score upon ED evaluation 2 for facial palsy 1 and sensory 1. She also is on keflex oral regimen for recent R great infected ingrown toenail starting 12/14/22 with improvement since abx start with follow-up in 2 weeks since her visit. Workup in the ED included T96.4, heart rate 90, BP 178/96, respiratory rate 16, 98% on room air, CBC with WBC 9.5, hemoglobin 12.8, platelet 308 without marked shift, unremarkable coags, BMP with glucose 180, troponin less than 3, chest x-ray with no acute cardiopulmonary findings, CT head and CTA head and neck with no acute intracranial findings and normal-appearing arteries with no significant stenosis, aneurysm or vascular malformation, EKG SR without acute evidence of ischemia. In the ED patient administered FS ASA. [facility] Medical History (Updated 12/17/22 @ 21:[address] Elizabeth Aggarwal MD) Allergic rhinitis Chronic back pain COVID-19 DI (diabetes insipidus) Former tobacco use GERD (gastroesophageal reflux disease) Gout Heart murmur Histiocytosis X Hyperlipidemia Inflammatory arthritis Morbid obesity Home Medications desmopressin 0.2 mg tablet 0.4 mg PO BID 04/14/15 [History Last Taken 12/17/22] Calcium Citrate-Vit D3 Tablet 1,200 mg PO DAILY 05/01/17 [History Last Taken 12/17/22] cholecalciferol (vitamin D3) 50 mcg (2,000 unit) capsule 2,000 unit PO DAILY 05/01/17 [History Last Taken 12/17/22] loratadine 10 mg tablet 10 mg PO DAILY PRN Allergies 05/01/17 [History Last Taken 12/17/22] niacin 500 mg tablet 500 mg PO QDAY 05/01/17 [History Last Taken 12/17/22] omeprazole 20 mg capsule,delayed release 20 mg PO DAILY 05/01/17 [History Last Taken 12/17/22] alendronate 70 mg tablet 70 mg PO .WEEKLY 12/17/22 [History Last Taken 12/11/22] cephalexin 500 mg capsule 500 mg PO Q12H 12/17/22 [History Last Taken 12/17/22] clobetasol 0.05 % topical cream 1 applic topical BID 12/17/22 [History Last Taken 12/17/22] Allergy/AdvReac Type Severity Reaction Status Date / Time No Known Allergies Allergy Verified 12/17/22 17:10 Family History (Updated 12/17/22 @ 21:[address] Elizabeth Aggarwal MD) Mother Arthritis Diabetes Hypertension High cholesterol Thyroid disorder Grandmother Breast cancer Great grandmother Father Atrial fibrillation Heart disease Surgical History (Updated 12/17/22 @ 21:[address] Elizabeth Aggarwal MD) History of shoulder surgery Hx of cholecystectomy Status post wrist surgery Social History (Updated 12/17/22 @ 21:[address] Elizabeth Aggarwal MD) household members: spouse Smoking Status: Former smoker how long ago did patient quit smoking: Quit > 20 years prior. second hand exposure: No alcohol intake: never substance use type: does not use caffeine: Yes what type of physical activity do you participate in: walking frequency: 1-2 times per week seatbelt use: always ROS ROS Narrative Admission Review of Systems: CONSTITUTIONAL: No weight loss, fever, chills, + weakness or fatigue. HEENT: Eyes: No visual loss, blurred vision, double vision or yellow sclerae. Ears, Nose, Throat: No hearing loss, sneezing, congestion, runny nose or sore throat. SKIN: + Hx prior L facial possible blisters, unclear if shingles or eventually dx with poison giovany. CARDIOVASCULAR: No chest pain, chest pressure or chest discomfort, palpitations, edema, orthopnea, syncopal events. RESPIRATORY: No shortness of breath, cough or sputum, wheezing, hemoptysis. GASTROINTESTINAL: No anorexia, nausea, vomiting or diarrhea, abdominal pain, melena, BRBPR. GENITOURINARY: No dysuria, frequency, urgency or retention. NEUROLOGICAL: + headache, R facial paresthesias, droop. No dizziness, syncope, paralysis, ataxia, change in bowel or bladder control, seizure. MUSCULOSKELETAL: + muscle, back pain, joint pain or stiffness. HEMATOLOGIC: + Hx anemia. LYMPHATICS: No enlarged nodes. No history of splenectomy. PSYCHIATRIC: No history of depression or anxiety. ENDOCRINOLOGIC: No reports of sweating, cold or heat intolerance. No polyuria or polydipsia. ALLERGIES: + history of rhinitis. Vital Signs Vital Signs Vital Signs: 12/17/22 17:11 12/17/22 17:32 Temperature 96.4 F L Temperature Source Temporal Pulse Rate 90 Respiratory Rate 16 Blood Pressure 178/96 H Blood Pressure Mean 123 Pulse Ox 98 Oxygen Delivery Method Room Air Room Air Weight Weight: 209 lb 12.8 oz Body Mass Index (BMI) 42.3 Physical Exam Narrative Physical Examination: General: Awake, alert, oriented x 3 and cooperative, seated upright in the ED bed in no apparent distress. Skin: Normal color, normal turgor, no icterus, no cyanosis except R great toe with no erythema, recent infected ingrown toenail, small fluctuant region just proximal to nail bed but not marked and no erythema or increased warmth. HEENT: AT/NC, EOMI, PERRLA, very mild initial sluggish right eye closer but upon further evaluation and exam seem to normalize, able to lift eyebrows and visible wrinkles on both sides of the forehead of note, MMM, no carotid bruits or JVD noted. Lungs: CTA bilaterally, moderate effort, mild decrease BL bases, no rales, ronchi or wheezing. Heart: Regular rate and rhythm; no gallop, rub audible. Abdomen: Soft, morbidly obese, NTTP, difficult discern distention as well as HSM given habitus, distant normal BS Extremities: No cyanosis, clubbing, or edema, see skin. Neurological: Patient awake, alert, oriented as noted, cognitive function intact; pupils equally reactive to light and accommodation, cranial nerves grossly normal except does have flattening of the right nasolabial folds and eventually upon evaluation was able to close lid without issue and is able to move eyebrows up with visible wrinkling on both sides of the forehead of note, no focal deficits otherwise, strength preserved, negative babinski, subjective facial right sided paresthesias. Psychiatric: Affect appears fatigued otherwise normal, no acute evidence of depressive or anxiety feelings. Results Lab / Micro Data 12/17/22 17:35 12/17/22 17:35 Labs: Laboratory Results - last 24 hr 12/17/22 17:35: WBC 9.5, RBC 4.64, Hgb 12.8, Hct 39.8, MCV 85.8, MCH 27.6, MCHC 32.2, RDW Std Deviation 42.0, RDW Coeff of Raymond 13.4, Plt Count 308, MPV 10.8, Immature Gran % (Auto) 0.400, Neut % (Auto) 62.8, Lymph % (Auto) 26.8, [place] % (Auto) 5.6, Eos % (Auto) 3.9, Baso % (Auto) 0.5, Absolute Neuts (auto) 5.9, Absolute Lymphs (auto) 2.53, Nucleated RBC % 0, PT 13.0, INR 1.0, APTT 26.7, Sodium 136, Potassium 3.6, Chloride 101, Carbon Dioxide 28.0, Anion Gap 7, BUN 9, Creatinine 0.88, Estim Creat Clear Calc 112.35, Est GFR (MDRD) Af Amer 87, Est GFR (MDRD) Non-Af 72, BUN/Creatinine Ratio 10.2, Glucose 180 H, Calcium 9.5, Troponin I High Sens < 3 L 12/17/22 17:38: POC Glucose 173 H Radiology Impression Head/Neck CTA 12/17/22 17:27 IMPRESSION: No acute intracranial findings. Electronically Signed: Alexsander Can MD at 18:52 EDT , ADDENDUM: 12/17/22 1900 IMPRESSION: No acute intracranial findings. N.B. : The above Results were Read Back by Alexsander Can MD to Prince Healy DO, and understanding confirmed on 12/17/2022 18:54:01 (ET). Electronically Signed: Alexsander Can MD at 18:52 EDT , Chest X-Ray 12/17/22 18:05 IMPRESSION: No radiographic evidence of acute cardiopulmonary disease. Electronically Signed: Alexsander Can MD at 18:25 EDT , Assessment & Plan Assessment/Plan (1) Paresthesias: PLAN: Plan The patient is a 52 y/o F w/ PMHx: Inflammatory arthritis, Chronic migraines, GERD, Diabetes insipidus on desmopressin, Allergic Rhinitis, Morbid obesity, Former tobacco use, Histiocytosis X following with Dr. Gonzales (involving bone, possible BM, blood per patient s/p chemotherapy and radiation with remission/relapse until 30s) who presents to the [facility] ED on 12/17/22 with history of onset R posterior headache, stabbing with mild light and sound sensitive ED different than her normal migraine as she usually has this in the front with onset the evening prior to current presentation and abnormal tongue sensation and at approximately 4 PM on day of presentation sudden onset numbness and tingling to the right side of her upper and lower lip as well as the right side of her tongue in addition to a slight facial droop with of note self administration of sumatriptan as well as amitriptyline with some improvement of her headache however still reporting it upon presentation 5 out of 10 in severity. #1. Right-sided paresthesias, facial droop concerning for CVA versus complex migraine with history of underlying chronic migraines: Will admit to PCU, will obtain MRI Brain, ECHO, PT/OT/Speech/Nutrition evaluation per protocol. Will allow permissive HTN, maintain on aspirin, and statin w/ AM FLP, fall precautions. Mag, TSH, FLP, HgbA1c requested. Maintain on fall and aspiration precautions. Given current evaluation for possible CVA will hold triptan therapies until assured no CVA on MRI, if negative may consider initiating intractable migraine regimen. #2. Recent R great ingrown toenail infection: Will continue patient home Keflex regimen, encourage continued outpatient follow-up as previously arranged however if worsens encourage ED evaluation. #3. Histiocytosis X: Following with Dr. Gonzales, status post combined chemoradiation reportedly has a toddler age 2.5 with remission and relapsing until her 30s with reported per patient bone, possible bone marrow and blood involvement, considered in remission at this point, encourage continued outpatient evaluation. #4. Diabetes insipidus: Will continue patient home desmopressin regimen, admission glucose 180, likely related however given admission for protocol will obtain hemoglobin A1c, maintain on ADA diet with accu checks with ISS given levels. #5. Inflammatory arthritis: Patient is normally on methotrexate and folic acid however she has been off this for the last several weeks secondary to recent infection initially as noted concern for possible shingles then diagnosed with poison giovany and now a recent ingrown toenail infection, encouraged continued outpatient follow-up with rheumatology. #6. Hyperlipidemia: FLP in a.m., per protocol statin added pending results as noted #1. #7. Allergic rhinitis: Will continue patient home loratadine regimen. #8. GERD: Will continue patient home PPI. #9. Former tobacco use: Encouraged continued tobacco cessation. #10. Morbid Obesity: Weight loss and lifestyle changes encouraged. #11. DVT prophylaxis: Lovenox. Charges/Coding Visit Charges Inpatient E&M: 72228 Init Hosp L2
[2022-12-17 19:30] VITALS: BP 160/94; PULSE 83; RESP 14; O2SAT 94
[2022-12-17 19:34] VITALS: BP 160/94; PULSE 79; RESP 18; O2SAT 97
[2022-12-17] MEDS: Aspirin 81 MG TAB.CHEW 324 MG PO (19:34)
--- NOTE | 2022-12-17 20:00 | ED.RN ---
OK TO STOP [facility] PER DR. SILVER
[2022-12-17 20:26] VITALS: BMI 42.0
--- NOTE | 2022-12-17 20:26 | ECHOD_ITS ---
Reason For Study: CVA Procedure This was a 2D Doppler, Color Flow transthoracic echocardiogram. The study was technically difficult. Contrast injection was performed. Exam performed portable in patient room. Left Ventricle Normal LV size. Left ventricular systolic function is normal. The estimated ejection fraction is 65 %. No regional wall motion abnormalities noted. Right Ventricle Normal RV size. Normal systolic function. Atria Normal left atrium. Normal right atrium. Bubble contrast study negative for right to left interatrial shunt. Mitral Valve Normal mitral valve. Tricuspid Valve Normal tricuspid valve. Mild (1+) tricuspid valve insufficiency. Pulmonary artery systolic pressure is 36 mmHg. Aortic Valve Normal aortic valve. Great Vessels Normal aortic root. Pericardium/Pleural No pericardial effusion. Medication Diluted definity 2ml given slow IV push to enhance endocardial definition. Performed a rapid injection of agitated mix of 9 cc saline and 1cc air to assess for atrial septal defect. MMode/2D Measurements & Calculations Ao root diam: 2.8 cm LAV(MOD-bp): 60.3 ml LVAd ap4: 25.3 cm2 LAV(MOD-bp) Indexed: 32.6 ml/m2 LVLd ap4: 7.7 cm LAV(MOD-sp2): 66.7 ml EDV(MOD-sp4): 69.3 ml LAV(MOD-sp4): 53.0 ml EDV(sp4-el): 70.9 ml LVAs ap4: 15.9 cm2 LVLs ap4: 6.8 cm ESV(MOD-sp4): 31.8 ml ESV(sp4-el): 31.8 ml EF(MOD-sp4): 54.2 % EF(sp4-el): 55.1 % SV(MOD-sp4): 37.6 ml SV(sp4-el): 39.1 ml LA A4 area: 19.2 cm2 LA dimension(2D): 3.9 cm RA A4 area: 12.7 cm2 TAPSE: 2.3 cm Time Measurements MV dec time: 0.20 sec Doppler Measurements & Calculations MV E max dylon: 95.7 cm/sec Lat Peak E' Dylon: 11.1 cm/sec Med Peak E' Dylon: 9.4 cm/sec MV A max dylon: 82.8 cm/sec E/E' lat: 8.6 E/E' med: 10.2 MV E/A: 1.2 MV V2 max: 111.2 cm/sec MV dec slope: 476.7 cm/sec2 Ao V2 max: 177.0 cm/sec MV max P.0 mmHg Ao max P.5 mmHg MV V2 mean: 74.9 cm/sec Ao V2 mean: 118.3 cm/sec MV mean P.4 mmHg Ao mean P.4 mmHg MV V2 VTI: 33.4 cm Ao V2 VTI: 34.8 cm AV (velocity ratio): 0.85 LV V1 max: 151.3 cm/sec PA V2 max: 100.2 cm/sec TR max dylon: 284.1 cm/sec LV V1 max P.2 mmHg PA V2 mean: 67.8 cm/sec TR max P.3 mmHg LV V1 mean P.1 mmHg LV V1 mean: 107.3 cm/sec LV V1 VTI: 29.7 cm ECHO/Echo Complete W/ Contrast Interpretation Summary Normal LV size. Left ventricular systolic function is normal. The estimated ejection fraction is 65 %. Pulmonary artery systolic pressure is 36 mmHg. Bubble contrast study negative for right to left interatrial shunt. Contrast injection was performed. Ordering Physician: Elizabeth Aggarwal Referring Physician: Isma Glover Performed By: Irma Parnell RCS
[2022-12-17 20:30] VITALS: BP 164/90; PULSE 86; RESP 16; TEMP 36.4; O2SAT 98
[2022-12-17] MEDS: 0.9% Normal Saline 1,000 ML 100 ML IV (21:30)
[2022-12-17] MEDS: DESMOPRESSIN ACETATE 0.1 MG TABLET 0.4 MG PO (21:55)
[2022-12-17] MEDS: Enoxaparin 40 MG/0.4 ML Syringe SC (21:56)
[2022-12-17 22:29] LABS: Bedside Glucose 151 mg/dL (74-106)
[2022-12-17 22:34] VITALS: BMI 42.0
[2022-12-18] VITALS (8 sets, daily range): BP systolic 135–150; BP diastolic 72–90; PULSE 77–89; RESP 16–18; TEMP 36.2–36.9; O2SAT 92–97; BMI 42.0
[2022-12-18 06:14] LABS: Absolute Lymphocyte Count 2.29 X10^3/uL (0.83-4.51); Absolute Neutrophil Count 4.8 X10^3/uL (2.0-7.7); Basophil# 0.05 X10^3/uL; Basophil% 0.6 % (0-1); Eosinophil# 0.32 X10^3/uL; Hematocrit 37.7 % (37-47); Hemoglobin 12.2 g/dL (12.0-15.0); Lymphocyte # 2.29 X10^3/ul (0.83-4.51); Lymphocyte % 28.8 % (19-41); Mean Corp Hgb Conc 32.4 g/dL (32-36); Mean Corpuscular Hgb 27.5 pg (27.0-32.0); Mean Corpuscular Volume 85.1 fL (81-99); Mean Platelet Vol. 10.9 fl (6.2-12.0); Monocyte# 0.49 X10^3/uL; Monocyte% 6.2 % (0-10); NRBC Flagged by Analyzer 0 % (0-5); Neutrophil % 60.3 % (47-70); Platelet Count 283 K/mm3 (150-450); RBC Distribution Width CV 13.4 % (11.6-14.6); Red Blood Count 4.43 M/mm3 (4.2-5.4)
[2022-12-18] MEDS: 0.9% Normal Saline 1,000 ML 100 ML IV (06:23)
[2022-12-18 06:44] LABS: Bedside Glucose 155 mg/dL (74-106)
[2022-12-18 07:15] LABS: ALB/GLOB Ratio 0.8 RATIO (0.9-2.4); AST(SGOT) 37 U/L (15-37); Alanine Aminotransfer ALT/SGPT 56 U/L (13-56); Alkaline Phosphatase 92 U/L (45-117); Anion Gap 7 (5-15); BUN 7 mg/dL (7-18); BUN/Creat Ratio 8.4 RATIO (10-20); Calcium,Total 8.7 mg/dL (8.5-10.1); Chloride 101 mmol/L (98-107); Cholesterol 193 mg/dL (200); Creatinine, Serum 0.84 mg/dL (0.55-1.02); EST Glomerular Filtration Rate 76 mL/min (>60); Est Glom Filt Rate - Afr Amer 92 mL/min (>60); Estimated Creatinine Clearance 116.63 ml/min; Globulin 3.9 g/dL (2.2-4.2); Glucose 152 mg/dL (74-106); High Density Lipoprotein 42 mg/dL; Potassium 3.6 mmol/L (3.5-5.1); Protein, Total 6.9 g/dL (6.4-8.2); Sodium Level 135 mmol/L (136-145); Thyroid Stim Hormone (TSH) 1.65 uIU/mL (0.358-3.74); Triglycerides 155 mg/dL; Very Low Density Lipoprotein 31 mg/dL (5-40)
[2022-12-18] MEDS: Aspirin 81 MG TAB.CHEW PO (08:31)
[2022-12-18 08:45] LABS: Hemoglobin A1c 7.2 % (3.8-5.6)
--- NOTE | 2022-12-18 09:00 | MRI_ITS ---
EXAM: MR HEAD WITHOUT INTRAVENOUS CONTRAST CLINICAL INDICATION: CVA. Right facial droop and numbness. TECHNIQUE: Multiplanar and multisequence MR images of the brain were obtained without intravenous contrast. COMPARISON: CT head without contrast and CTA head and neck with contrast 12/17/2022. FINDINGS: BRAIN AND EXTRA-AXIAL SPACES: Unremarkable. No intra- or extra-axial hemorrhage. No evidence of acute infarct. No intracranial mass or mass effect. There is preservation of the gomez/white matter interface. Posterior fossa structures are unremarkable. No hydrocephalus. No diffusion restriction throughout the brain parenchyma. No focal signal abnormalities throughout the brain parenchyma in all pulse sequences. Normal ventricles and cisterns. SELLA: Unremarkable. Normal sella turcica, pituitary gland, infundibular stalk, optic chiasm and hypothalamus. AUDITORY SYSTEM: Unremarkable. The internal auditory canals are patent. BONES/JOINTS: Unremarkable. No discrete lytic or blastic abnormalities. SINUSES: Unremarkable as visualized. Clear. MASTOID AIR CELLS: Unremarkable as visualized. Clear. ORBITS: Unremarkable as visualized. Both globes, extraocular muscles, optic nerves and retrobulbar fat appear unremarkable. VASCULATURE: Unremarkable as visualized. Normal flow voids in the major intracranial circulation. MRI/Brain without Contrast IMPRESSION: Normal MRI brain without contrast. Electronically Signed: Aman York MD at 13:58 EDT ,
[2022-12-18] MEDS: Enoxaparin 40 MG/0.4 ML Syringe SC (11:11)
[2022-12-18 11:32] LABS: Bedside Glucose 146 mg/dL (74-106)
--- NOTE | 2022-12-18 14:21 | DS.PCM_ITS ---
Providers Date of Admission: 12/17/22 Date of Discharge: 12/18/22 Primary Care Physician: Dr. Isma Glover DO Reason For Visit: CVA VERSUS COMPLEX MIGRAINE Diagnosis Discharge Diagnosis (1) Paresthesias: Status: Acute Code(s): R20.2 - Paresthesia of skin (2) Facial droop: Status: Acute Code(s): R29.810 - Facial weakness Medications at Discharge Home Medications desmopressin 0.2 mg tablet 0.4 mg PO BID 04/14/15 Calcium Citrate-Vit D3 Tablet 1,200 mg PO DAILY 05/01/17 cholecalciferol (vitamin D3) 50 mcg (2,000 unit) capsule 2,000 unit PO DAILY 05/01/17 loratadine 10 mg tablet 10 mg PO DAILY PRN Allergies 05/01/17 niacin 500 mg tablet 500 mg PO QDAY 05/01/17 omeprazole 20 mg capsule,delayed release 20 mg PO DAILY 05/01/17 alendronate 70 mg tablet 70 mg PO .WEEKLY 12/17/22 cephalexin 500 mg capsule 500 mg PO Q12H 12/17/22 clobetasol 0.05 % topical cream 1 applic topical BID 12/17/22 amitriptyline PO Migraines 12/18/22 Hospital Course Procedures 2-D Echocardiogram and - (CTA head and neck/chest x-ray/MRI brain) Summary of Care Provided Minutes Spent on Discharge: 38 Hospital Course: Ms. Suarez is a 52-year-old white female who presented to the emergency department last evening on 12/17/2022 complaining of right sided facial paresthesias and right facial droop. Patient states that she recently had a rash on her face and they thought it might be shingles however she saw internal communications specialist and thought it was poison giovany. She states she does not think it was either. And the rash is since resolved. She had a concomitant right posterior headache that was stabbing and had mild phono and photophobia. She indicated that this was different than her typical migraine. She does have a history of chronic migraines for which she takes amitriptyline. She also complained of some abnormal sensation in her right tongue that started approximately 4 PM on the day of presentation. Her other symptoms started shortly thereafter. She took sumatriptan as well as her home amitriptyline with some improvement of her headache however her neurological symptoms persisted. Headache intensity was 5 out of 10 at the time of admission. Initial NIH was 2 for facial palsy and for sensory changes in the right face. Vital signs were unremarkable. CBC was overall unremarkable. Chemistry panel was unremarkable except for glucose of 180. Patient is not a known diabetic. Chest x-ray was unremarkable. EKG is unremarkable. CTA of the head and neck showed no acute intracranial findings and normal-appearing arteries with no significant stenosis, aneurysm, or vascular malformation. She was given aspirin in the emergency department and admitted to telemetry. NIH is were continued and her NIH has remained at 2 for facial droop which is mild on the right as well as mild sensory changes. She does indicate her tongue is starting to feel better. An echocardiogram was performed and demonstrated an EF of 65% with pulmonary artery systolic pressure of 36 mmHg and a negative bubble study. MRI was unremarkable for any acute findings. With her hyperglycemia on presentation, we obtain a hemoglobin A1c and was found to be 7.2. I discussed this finding with the patient she was not aware that she had diabetes. She has a family history in her mother however. She was again starting any oral medication for this and would like to address her diet. I offered her a consultation with a dietitian but she was resistant to this as well. I did give her information at the time of discharge with regards to diet changes and recommendations for diet with diabetes and recommend a repeat hemoglobin A1c be obtained in 3 months after she has had the opportunity to make some diet changes. Her sister, who is a nurse, was at the bedside during this conversation. Patient's headache did persist and I did offer to give her repeat of her home medications however she resisted at the that time. Neurology was consulted given ongoing mild neurological changes and they recommended and LP with her recent concern for VZV infection in her face. Patient declined and stated she did not want an LP done and wanted to go home. We did go ahead and discharge her however strongly recommending immediate follow-up if she worsens at all or does not improve. We were not able to offer treatment for possible Starkey's palsy given the fact we were not able to rule out VZV meningitis and did not want to cause any immunosuppression. Patient did states she would return immediately if her symptoms worsen or did not improve with time. Her sister, who is a nurse, was at the bedside. Patient is to follow-up with her primary care physician within the next 2 weeks. Discharge diagnoses: Right-sided facial droop Right-sided facial paresthesias Migraine headache DM-2-new diagnosis History of histocytosis X Chronic migraines GERD Diabetes insipidus Allergic rhinitis Inflammatory arthritis Morbid obesity Physical Exam Const alert, oriented x3, no apparent distress and well nourished Constitutional Narrative: Morbidly obese, middle-aged, white female, sitting up in bed, family at bedside, patient appears comfortable and nontoxic General Appearance: cooperative, comfortable, well kempt and well developed Orientation / Consciousness: awake, oriented to person, oriented to place and oriented to time Exam Limitations: no limitations Nutritional Appearance: morbidly obese HEENT normocephalic, head/scalp atraumatic, hearing grossly normal bilaterally and moist oral mucous membranes HEENT Narrative: Mallampati 3, no thrush, dentition is good Eyes PERRL, EOMs intact bilaterally and conjunctivae normal Eyes Narrative: No scleral icterus Neck no lymphadenopathy and supple Neck Narrative: Neck is short and thick, trachea is midline, no thyroid enlargement Resp normal respiratory effort, no retractions, no use of accessory muscles and clear to auscultation bilaterally Auscultation: Negative for rales, rhonchi or wheezes Cardio regular rate, regular rhythm, S1 normal heart sound, S2 normal heart sound, no rub, no gallops and no clicks; Negative for no murmurs Cardio Narrative: 2 out of 6 systolic murmur GI normal to inspection, nondistended, normoactive bowel sounds, soft to palpation and non-tender Extremity no clubbing, cyanosis or edema Extremity Narrative: Pedal pulses are 2+ Skin no rashes or lesions noted, no wounds, skin turgor normal and no jaundice Neuro oriented x3 and moves all extremities Neuro Narrative: Mild right facial droop, forehead motor intact, mild sensory changes in the V2 distribution of the trigeminal nerve Sensorium / Orientation: awake, alert, oriented to person, oriented to place and oriented to time Speech: speech normal Psych Psych Narrative: Affect is slightly flat, eye contact is good and patient interacts normally Weight / BMI Weight Weight: 94.3 kg Body Mass Index (BMI) 42.0 ABG / Lab / Microbiology Data 12/18/22 05:55 12/18/22 05:55 Laboratory: Laboratory Results - last 24 hr 12/17/22 17:35: WBC 9.5, RBC 4.64, Hgb 12.8, Hct 39.8, MCV 85.8, MCH 27.6, MCHC 32.2, RDW Std Deviation 42.0, RDW Coeff of Raymond 13.4, Plt Count 308, MPV 10.8, Immature Gran % (Auto) 0.400, Neut % (Auto) 62.8, Lymph % (Auto) 26.8, Murray % (Auto) 5.6, Eos % (Auto) 3.9, Baso % (Auto) 0.5, Absolute Neuts (auto) 5.9, Absolute Lymphs (auto) 2.53, Nucleated RBC % 0, PT 13.0, INR 1.0, APTT 26.7, Sodium 136, Potassium 3.6, Chloride 101, Carbon Dioxide 28.0, Anion Gap 7, BUN 9, Creatinine 0.88, Estim Creat Clear Calc 112.35, Est GFR (MDRD) Af Amer 87, Est GFR (MDRD) Non-Af 72, BUN/Creatinine Ratio 10.2, Glucose 180 H, Calcium 9.5, Magnesium 2.0, Troponin I High Sens < 3 L 12/17/22 17:38: POC Glucose 173 H 12/17/22 22:04: POC Glucose 151 H 12/18/22 05:55: WBC 8.0, RBC 4.43, Hgb 12.2, Hct 37.7, MCV 85.1, MCH 27.5, MCHC 32.4, RDW Std Deviation 42.0, RDW Coeff of Raymond 13.4, Plt Count 283, MPV 10.9, Immature Gran % (Auto) 0.100, Neut % (Auto) 60.3, Lymph % (Auto) 28.8, Murray % (Auto) 6.2, Eos % (Auto) 4.0, Baso % (Auto) 0.6, Absolute Neuts (auto) 4.8, Absolute Lymphs (auto) 2.29, Nucleated RBC % 0, Sodium 135 L, Potassium 3.6, Chloride 101, Carbon Dioxide 27.0, Anion Gap 7, BUN 7, Creatinine 0.84, Estim Creat Clear Calc 116.63, Est GFR (MDRD) Af Amer 92, Est GFR (MDRD) Non-Af 76, BUN/Creatinine Ratio 8.4 L, Glucose 152 H, Hemoglobin A1c 7.2 H, Calcium 8.7, Total Bilirubin 0.50, AST 37, ALT 56, Alkaline Phosphatase 92, Total Protein 6.9, Albumin 3.0 L, Globulin 3.9, Albumin/Globulin Ratio 0.8 L, Triglycerides 155, Cholesterol 193, LDL Cholesterol 120, VLDL Cholesterol 31, HDL Cholesterol 42, TSH 1.65 12/18/22 06:25: POC Glucose 155 H 12/18/22 11:03: POC Glucose 146 H Radiography Diagnostic Testing: Radiology Impression Head/Neck CTA 12/17/22 17:27 IMPRESSION: No acute intracranial findings. Electronically Signed: Alexsander Can MD at 18:52 EDT , ADDENDUM: 12/17/22 1900 IMPRESSION: No acute intracranial findings. N.B. : The above Results were Read Back by Alexsander Can MD to Prince Healy DO, and understanding confirmed on 12/17/2022 18:54:01 (ET). Electronically Signed: Alexsander Can MD at 18:52 EDT , Chest X-Ray 12/17/22 18:05 IMPRESSION: No radiographic evidence of acute cardiopulmonary disease. Electronically Signed: Alexsander Can MD at 18:25 EDT , Echocardiogram 12/17/22 20:26 Interpretation Summary Normal LV size. Left ventricular systolic function is normal. The estimated ejection fraction is 65 %. Pulmonary artery systolic pressure is 36 mmHg. Bubble contrast study negative for right to left interatrial shunt. Contrast injection was performed. Ordering Physician: Elizabeth Aggarwal Referring Physician: Isma Glover Performed By: Irma Parnell RCS Brain MRI 12/18/22 09:00 IMPRESSION: Normal MRI brain without contrast. Electronically Signed: Aman York MD at 13:58 EDT , Meaningful Use Info Meaningful Use Diagnoses (Choose all that apply): None applicable Discharge Plan Admission Admit Date/Time: 12/17/22 19:21 Primary Reason for Your Visit: R facial tingling and droop/L Tongue numbness Attending Provider: Onelia Graves Primary Care Provider: Isma Glover Consulting Providers: Elizabeth Aggarwal Instructions Patient Instructions: Healthy Meals for Diabetes, Understanding Carbohydrates, Eating Out When You Have Diabetes, Diabetes Serving Portion Sizes, Diabetes: Meal Planning, Diabetes Carbs Fats Protein Discharge Orders/Prescriptions Prescriptions: No Action niacin 500 mg tablet 500 mg PO QDAY desmopressin 0.2 MG tablet 0.4 mg PO BID omeprazole 20 MG capsule 20 mg PO DAILY loratadine 10 MG tablet 10 mg PO DAILY PRN (Reason: Allergies) cholecalciferol (vitamin D3) 2,000 UNIT capsule 2,000 unit PO DAILY Calcium Citrate-Vit D3 Tablet 1,200 mg PO DAILY alendronate 70 mg tablet 70 mg PO .WEEKLY cephalexin 500 mg capsule 500 mg PO Q12H Rx Instructions: X7D FILLED 8/4 clobetasol 0.05 % cream 1 applic TOPICAL BID amitriptyline .ROUTE Referrals / Follow Up: Isma Glover DO [Primary Care Provider] - Within 2 Weeks Disposition Disposition (needs filled in before D/C Order can be placed): Home, Self Care Charges/Coding Visit Charges Inpatient E&M: 81224 Disch Hosp >30min
--- NOTE | 2022-12-18 15:29 | CASEMGMT ---
SW did not complete a PHQ9 as patient did not have a Stroke. Bronwyn FLYNN
[2022-12-18 16:31] LABS: Bedside Glucose 133 mg/dL (74-106)
== END 2022-12-18 17:37 | disposition home or self-care (01) ==
LOC: ED 19:24 → PCU 19:40
PROVIDERS: Admitting Provider Family Medicine; Emergency Provider Student in an Organized Health Care Education/Training Program; PCP Family Medicine; Visit Provider Internal Medicine
DX: R20.2 Paresthesia of skin (principal); C96.6 Unifocal Langerhans-cell histiocytosis; M06.4 Inflammatory polyarthropathy; E66.01 Morbid (severe) obesity due to excess calories; Z68.41 Body mass index [BMI] 40.0-44.9, adult; E23.2 Diabetes insipidus; E11.9 Type 2 diabetes mellitus without complications; Z87.891 Personal history of nicotine dependence; Z79.83 Long term (current) use of bisphosphonates; Z86.16 Personal history of COVID-19; E78.5 Hyperlipidemia, unspecified; G43.709 Chronic migraine without aura, not intractable, without status migrainosus; G51.0 Bell's palsy; Z92.21 Personal history of antineoplastic chemotherapy; K21.9 Gastro-esophageal reflux disease without esophagitis; G44.85 Primary stabbing headache; R29.810 Facial weakness; G47.33 Obstructive sleep apnea (adult) (pediatric); Z79.899 Other long term (current) drug therapy; I07.1 Rheumatic tricuspid insufficiency; R20.0 Anesthesia of skin; R29.702 NIHSS score 2
CPT/HCPCS: 36415; 70496; 70498; 70551; 71045; 80048; 80053; 80061; 82962; 83036; 83735; 84443; 84484; 85025; 85610; 85730; 93005; 93306; 94668; 94762; 96360; 96361; 96372; 97802; 99221; 99285; J7030; Q9957; Q9967; A4216; C8929; G0378

== ENCOUNTER → 2022-12-20 | Outpatient (CLI) | payer MEDICARE, SELFPAY ==
[2022-12-26 00:07] LABS: Lyme IgG P18 Ab Absent (.); Lyme IgG P23 Ab Absent (.); Lyme IgG P28 Ab Absent (.); Lyme IgG P30 Ab Absent (.); Lyme IgG P39 Ab Absent (.); Lyme IgG P41 Ab Present (.); Lyme IgG P45 Ab Absent (.); Lyme IgG P58 Ab Absent (.); Lyme IgG P66 Ab Absent (.); Lyme IgG P93 Ab Absent (.); Lyme IgG WB Interpretation Negative (.); Lyme IgM P23 Ab Present (.); Lyme IgM P39 Ab Absent (.); Lyme IgM P41 Ab Absent (.); Lyme IgM WB Interpretation Negative (.)
== END | disposition home or self-care (01) ==
LOC: BFHLAB 14:50
PROVIDERS: PCP Family Medicine; Referring Provider Family Medicine; Visit Provider Family Medicine
DX: R29.810 Facial weakness (principal)
CPT/HCPCS: 36415; 86617

== ENCOUNTER → 2023-05-30 | Outpatient (CLI) | payer MEDICARE, SELFPAY ==
--- OUTSIDE RECORDS SUMMARY | 2023-05-30 10:56 | XMS RPT_ITS | CCD ---
Author Name Unknown Address [address] [place] [address] Organization [facility] Care Team Providers Care Wet Press Tender Name Role Phone Beto Sanabria MD Primary Care Provider [phone] Beto Glover DO Primary Care Provider IRON CONTRERAS Attending Unavailable BETO GLOVER Primary Care Unavailable BETO GLOVER Primary Care Unavailable BETO SANABRIA Primary Care Unavailable BETO GLOVER Primary Care Unavailable BETO GLOVER Primary Care Unavailable IRON CONTRERAS Attending Unavailable BETO GLOVER Primary Care Unavailable Allergies Allergy Classification Reported Allergen(s) Allergy Type Date of Onset Reaction(s) Facility (6 sources) mold, dust and pollen [Other] Propensity to adverse reactions 8 Intolerance [facility] Work Phone: (1 source) OTHER; Translations: [OTHER] Propensity to adverse reactions (disorder) 8 [facility] Repository Medications Current Medications Medication Drug Class(es) Dates Sig (Normalized) Sig (Original) cefdinir 300 mg oral capsule (1 source) Cephalosporin Antibacterial Start: 02-08-2023 End: 02-15-2023 take 1 capsule by mouth twice daily cefdinir (OMNICEF) 300 mg capsule Indications: Acute otitis media, right Take 1 capsule by mouth two times a day for 7 days. 14 capsule 0 02/08/2023 02/15/2023 Active Completed/Discontinued Medications Medication Drug Class(es) Dates Sig (Normalized) Sig (Original) alendronic acid 70 mg oral tablet (7 sources) Bisphosphonate Start: 04-26-2017 take 1 tablet by mouth every week alendronate (FOSAMAX) 70 mg tablet Indications: Osteopenia, senile Take 1 tablet by mouth once each week. 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] Onset: 11-06-2012 11-06-2012 Chronic Headache; including migraine (7 sources) Migraine with aura; Translations: [Migraine with aura, not intractable, without status migrainosus] Onset: 02-25-2017 02-25-2017 Chronic Menopausal disorders (7 sources) Menopausal symptom; Translations: [Menopausal and female climacteric states] Onset: 12-04-2012 01-13-2013 Chronic Mycoses (1 source) Onychomycosis; Translations: [Tinea unguium] 01-23-2023 Episodic Nutritional deficiencies (7 sources) Vitamin D deficiency; Translations: [Vitamin D deficiency, unspecified] Onset: 04-14-2007 09-12-2015 Chronic Other endocrine disorders (7 sources) Diabetes insipidus; Translations: [Diabetes insipidus] Onset: 04-11-2007 04-11-2007 Chronic Other skin disorders (2 sources) Dystrophia unguium; Translations: [Nail dystrophy] 01-01-2023 Episodic Other upper respiratory infections (1 source) Sore throat symptom; Translations: [Acute pharyngitis, unspecified] 03-30-2023 Episodic Otitis media and related conditions (1 source) Acute right otitis media; Translations: [Otitis media, unspecified, right ear] 02-08-2023 Episodic Secondary malignancies (7 sources) Secondary malignant neoplasm of bone; Translations: [Secondary malignant neoplasm of bone] Onset: 04-11-2007 04-11-2007 Chronic Skin and subcutaneous tissue infections (2 sources) Paronychia of toe of right foot; Translations: [Cellulitis of right toe] 12-14-2022 Episodic Viral infection (1 source) Herpes zoster with complication; Translations: [Zoster with other complications] 11-24-2022 Episodic Past or Other Problems Problem Classification Problem Date Documented Da te Episodic/Chronic Fluid and electrolyte disorders (7 sources) Hyponatremia; Translations: [Hypo-osmolality and hyponatremia] Onset: 03-03-2015 03-03-2015 Episodic Other non-traumatic joint disorders (7 sources) Pain in left shoulder; Translations: [Pain in joint, shoulder region] Onset: 12-26-2016 12-26-2016 Episodic Other non-traumatic joint disorders (7 sources) Pain in right shoulder; Translations: [Pain in joint, shoulder region] Onset: 02-24-2020 02-24-2020 Episodic Spondylosis; intervertebral disc disorders; other back problems (7 sources) Chronic low back pain; Translations: [Chronic low back pain] Onset: 12-19-2020 12-19-2020 Episodic Results Test Name Value Interpretation Reference Range Facil ity Vital Signs Date Time Vital Sign Value Performing Clinician Facility 03-30-2023 10:16-0500 Body temperature 100.09 [degF] Epi Quiles APRN.RESPIRATORY ASSISTANT Work Phone: [facility] 03-30-2023 10:16-0500 Body weight 86.09 kg Epi Quiles APRN.RESPIRATORY ASSISTANT Work Phone: [facility] 03-30-2023 10:16-0500 Diastolic blood pressure 80 mm[Hg] Epi Quiles APRN.RESPIRATORY ASSISTANT Work Phone: [facility] 03-30-2023 10:16-0500 Heart rate 88 /min Epi Quiles APRN.RESPIRATORY ASSISTANT Work Phone: [facility] 03-30-2023 10:16-0500 Respiratory rate 20 /min Epi Quiles APRN.RESPIRATORY ASSISTANT Work Phone: [facility] 03-30-2023 10:16-0500 SaO2% (BldA) [Mass fraction] 97 % Epi Quiles APRN.RESPIRATORY ASSISTANT Work Phone: [facility] 03-30-2023 10:16-0500 Systolic blood pressure 110 mm[Hg] Epi Quiles APRN.RESPIRATORY ASSISTANT Work Phone: [facility] 02-08-2023 15:35-0400 Body temperature 98.29 [degF] Marianne Fuller APRN.RESPIRATORY ASSISTANT Work Phone: [facility] 02-08-2023 15:35-0400 Body weight 91.44 kg Marianne Fuller APRN.RESPIRATORY ASSISTANT Work Phone: [facility] 02-08-2023 15:35-0400 Diastolic blood pressure 80 mm[Hg] Marianne Fuller SIZING MACHINE OPERATOR.RESPIRATORY ASSISTANT Work Phone: [facility] 02-08-2023 15:35-0400 Heart rate 57 /min Marianne Fuller SIZING MACHINE OPERATOR.RESPIRATORY ASSISTANT Work Phone: [facility] 02-08-2023 15:35-0400 Respiratory rate 18 /min Marianne Fuller SIZING MACHINE OPERATOR.RESPIRATORY ASSISTANT Work Phone: [facility] 02-08-2023 15:35-0400 SaO2% (BldA) [Mass fraction] 96 % Marianne Fuller SIZING MACHINE OPERATOR.RESPIRATORY ASSISTANT Work Phone: [facility] 02-08-2023 15:35-0400 Systolic blood pressure 130 mm[Hg] Marianne Fuller SIZING MACHINE OPERATOR.RESPIRATORY ASSISTANT Work Phone: [facility] 12-14-2022 10:08-0400 Body temperature 99.1 [degF] Abby Osvaldo SIZING MACHINE OPERATOR.RESPIRATORY ASSISTANT Work Phone: [facility] 12-14-2022 10:08-0400 Body weight 94.53 kg Abby Osvaldo SIZING MACHINE OPERATOR.RESPIRATORY ASSISTANT Work Phone: [facility] 12-14-2022 10:08-0400 Diastolic blood pressure 82 mm[Hg] Abby Osvaldo SIZING MACHINE OPERATOR.RESPIRATORY ASSISTANT Work Phone: [facility] 12-14-2022 10:08-0400 Heart rate 81 /min Abby Osvaldo SIZING MACHINE OPERATOR.RESPIRATORY ASSISTANT Work Phone: [facility] 12-14-2022 10:08-0400 Respiratory rate 18 /min Baby Osvaldo SIZING MACHINE OPERATOR.RESPIRATORY ASSISTANT Work Phone: [facility] 12-14-2022 10:08-0400 SaO2% (BldA) [Mass fraction] 95 % Abby Osvaldo SIZING MACHINE OPERATOR.RESPIRATORY ASSISTANT Work Phone: [facility] 12-14-2022 10:08-0400 Systolic blood pressure 128 mm[Hg] Abby Osvaldo SIZING MACHINE OPERATOR.RESPIRATORY ASSISTANT Work Phone: [facility] 11-24-2022 15:12-0400 Body temperature 99.39 [degF] Jhonny Drake SIZING MACHINE OPERATOR.RESPIRATORY ASSISTANT Work Phone: [facility] 11-24-2022 15:12-0400 Body weight 93.53 kg Jhonny Drake SIZING MACHINE OPERATOR.RESPIRATORY ASSISTANT Work Phone: [facility] 11-24-2022 15:12-0400 Diastolic blood pressure 80 mm[Hg] Jhonny Drake SIZING MACHINE OPERATOR.RESPIRATORY ASSISTANT Work Phone: [facility] 11-24-2022 15:12-0400 Heart rate 72 /min Jhonny Drake SIZING MACHINE OPERATOR.RESPIRATORY ASSISTANT Work Phone: [facility] 11-24-2022 15:12-0400 Respiratory rate 21 /min Jhonny Drake SIZING MACHINE OPERATOR.RESPIRATORY ASSISTANT Work Phone: [facility] 11-24-2022 15:12-0400 SaO2% (BldA) [Mass fraction] 95 % Jhonny Drake SIZING MACHINE OPERATOR.RESPIRATORY ASSISTANT Work Phone: [facility] 11-24-2022 15:12-0400 Systolic blood pressure 138 mm[Hg] Jhonny Drake SIZING MACHINE OPERATOR.RESPIRATORY ASSISTANT Work Phone: [facility] Encounters Encounter Date Encounter Type Care Provider Facility Start: 03-30-2023 End: 03-30-2023 [facility] Facility:[facility] Start: 03-30-2023 End: 03-30-2023 Patient encounter procedure Epi Quiles SIZING MACHINE OPERATOR.RESPIRATORY ASSISTANT Work Phone: [facility] Procedures Date Procedure Procedure Detail Performing Clinician Start: 03-30-2023 STREP A MOLECULAR (POC) Debra Emerson SIZING MACHINE OPERATOR.RESPIRATORY ASSISTANT Work Phone: Start: 01-01-2023 Tiss shaji slide samps skn/hr/nls fngi/ectoparasit Iron Contreras Work Phone: Start: 11-30-2016 Mammography [facility] SIZING MACHINE OPERATOR.RESPIRATORY ASSISTANT Work Phone: Plan of Treatment Date Care Activity Detail Author Start: 01-11-2023 Covid-19 Vaccine () Covid-19 Vaccine () [facility] Start: 01-11-2023 Influenza vaccination [facility] Start: 09-04-2022 Pneumococcal vaccination Pneumococcal Vaccine (3 - PCV) [facility] Start: 05-13-2022 DEPRESSION ASSESSMENT DEPRESSION ASSESSMENT [facility] Start: 09-19-2021 COVID-19 VACCINE (4 - Booster for Pfizer series) COVID-19 VACCINE (4 - Booster for Pfizer series) [facility] Start: 09-19-2021 COVID-19 VACCINE (4 - Pfizer risk series) COVID-19 VACCINE (4 - Pfizer risk series) [facility] Start: 11-16-2018 PAP TESTING PAP TESTING [facility] Start: 04-29-2018 PNEUMOCOCCAL (2 - PCV) PNEUMOCOCCAL (2 - PCV) [facility] Start: 04-29-2018 Pneumococcal vaccination Pneumococcal Vaccine (2 - PCV) [facility] Start: 11-30-2017 Mammography [facility] Start: 2015 COLOGUARD (FIT-DNA) COLOGUARD (FIT-DNA) [facility] Start: 2015 Colonoscopy COLONOSCOPY [facility] Start: 2015 COLORECTAL CANCER SCREENING COLORECTAL CANCER SCREENING [facility] Start: [address] COLONOGRAPHY [facility] Start: 2015 DIABETES SCREEN DIABETES SCREEN [facility] Start: 2015 Diabetes Screening Diabetes Screening [facility] Start: 2015 FECAL OCCULT BLOOD FECAL OCCULT BLOOD [facility] Start: 2015 Lipid 1996 panel - Serum or Plasma Lipid Screening [facility] Start: 2015 LIPID SCREEN LIPID SCREEN [facility] Start: 2015 SIGMOIDOSCOPY SIGMOIDOSCOPY [facility] Start: 05-17-2011 HPV TESTING HPV TESTING [facility] Start: 1989 SHINGRIX VACCINE (1 of 2) SHINGRIX VACCINE (1 of 2) [facility] Start: 1989 Urine microalbumin profile [facility] Start: 1988 HEPATITIS C SCREENING HEPATITIS C SCREENING [facility] Start: 1988 HIV SCREENING HIV SCREENING [facility] Start: 1970 HEPATITIS B (1 of 3 - 3-dose series) HEPATITIS B (1 of 3 - 3-dose series) [facility] Start: 1970 Hepatitis B Vaccine (1 of 3 - 3-dose series) Hepatitis B Vaccine (1 of 3 - 3-dose series) [facility] FUNGAL CULTURE AND SMEAR-HAIR,SKIN,NAIL FUNGAL CULTURE AND SMEAR-HAIR,SKIN,NAIL Microbiology Routine Onychodystrophy 01/01/2023 11:28 AM EDT [facility] Work Phone: [facility] Immunizations Immunization Date Immunization Notes Care Provider Regi tam 04-29-2017 pneumococcal polysaccharide vaccine, 23 valent Jhonny Drake SIZING MACHINE OPERATOR.RESPIRATORY ASSISTANT Work Phone: [facility] Work Phone: Payers Date Payer Category Payer Medicare MMO MEDICARE MMO MEDADVANTAGE HMO [id number] 2018-Present [phone] [address] [place] [address] O [id number] 2018 Unknown [id number] Social History Date Type Detail Facility Start: 11-24-2022 Tobacco smoking stat us [facility]IS Ex-smoker [facility] End: 04-11-1997 History of tobacco use Current smoker [facility] End: 04-11-1997 History of tobacco use Cigarette Smoker [facility] Start: 11-24-2022 End: 01-01-2023 Cigarettes smoked current (pack per day) - Reported 0.3 [facility] Start: 11-24-2022 Tobacco use and exposure Smoke less tobacco non-user [facility] Start: 11-24-2022 End: 03-30-2023 Alcohol intake Current non-drinker of alcohol (finding) [facility] Start: 11-24-2022 End: 01-01-2023 Tobacco use panel [facility] National Score (1-10 0), lower number is lower risk Not on file [facility] Start: 1970 Sex Assigned At Not on file [facility] Clinical Notes 04-11-2007 to 03-30-2023 Epi Quiles APRN.RESPIRATORY ASSISTANT - 03/30/2023 11:33 AM Marianne Martin APRN.MIKA - 02/08/2023 3:41 PM EDRajesh Solorzanoew - 01/23/2023 4:30 PM Kriss Bales LPN - 01/23/2023 4:23 PM EDT Note Date & Type Note Facility 03-30-2023 Note HNO ID: [id number] Author: Epi Quiles APRN.RESPIRATORY ASSISTANT Service: ? Author Type: Nurse Practitioner Type: Progress Notes Filed: 03/30/2023 11:36 AM Note Text: Subjective HPI HPI Kristen Suarez is a 52 year old female who presents today for CC of st. This started 4 days ago. Has tried otc medication for relief. Symptoms are worsened by nothing. No sick exposures. 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 MEDICATIONS zolpidem (AMBIEN) 5 mg tablet Take 5 mg by mouth daily at bedtime. folic acid 1 mg tablet Take 2 tablets by mouth every afternoon. methotrexate 2.5 mg tablet TAKE 7 TABLETS BY MOUTH ONCE A WEEK alendronate (FOSAMAX) 70 mg tablet Take 1 tablet by mouth once each week. desmopressin acetate (DDAVP) 0.2 mg tablet Take 2 tablets by mouth twice daily. propranolol (INDERAL) 10 mg tablet Take 1 tablet by mouth three times daily. SUMAtriptan (IMITREX) 50 mg tablet Take 1 tablet by mouth as needed for Migraine Headache (see administration instructions). fluticasone (FLONASE) 50 mcg/actuation nasal spray Use 2 Sprays in each nostril once daily. Rinse mouth after use. (Patient taking differently: Use 2 Sprays in each nostril as needed. Rinse mouth after use.) GLUCOSAMINE HCL/CHONDR JEFFERSON A NA (OSTEO BI-FLEX ORAL) Take by mouth once daily. omeprazole (PRILOSEC) 20 mg capsule Take 20 mg by mouth every Saturday,Saturday,Saturday,Saturday. 1/2 hr before meal. cetirizine hcl(ZYRTEC 10 MG TAB) as necessary calcium carbonate/vitamin d3(CALCIUM 600 + D 600 MG-125 UNIT TAB) Take one(1) tablet daily. NIACIN 250 MG TAB Take one(1) tablet daily. predniSONE (DELTASONE) 20 mg tablet Take 2 tablets by mouth once daily for 5 days. LIDOCAINE VISCOUS 2 % solution Take 5-10 mL by mouth four times a day as needed. FAMILY HISTORY Problem Relation Age of Onset Diabetes Mother None Father Cancer Sister Melamona/ Arm Alzheimer's Disease Maternal Grandmother Social History Tobacco Use Smoking status: Former Packs/day: 0.25 Years: 10.00 Additional pack years: 0.00 Total pack years: 2.50 Types: Cigarettes Quit date: 04/11/1997 Years since quittin.9 Smokeless tobacco: Never Vaping Use Vaping Use: Never used Substance Use Topics Alcohol use: No Drug use: No Review of Systems Constitutional: Positive for fever. HENT: Positive for congestion and sore throat. Negative for ear pain and nosebleeds. Respiratory: Negative for cough, shortness of breath and wheezing. Musculoskeletal: Negative for neck pain. Skin: Negative for itching and rash. Objective Blood pressure 110/80, pulse 88, temperature 37.8 ?C (100.1 ?F), resp. rate 20, weight 86.1 kg (189 lb 12.8 oz), last menstrual period 11/10/2012, SpO2 97 %. Physical Exam Constitutional: General: She is not in acute distress. Appearance: She is not toxic-appearing or diaphoretic. HENT: Head: Normocephalic and atraumatic. Mouth/Throat: Pharynx: Uvula midline. Posterior oropharyngeal erythema present. Cardiovascular: Rate and Rhythm: Normal rate and regular rhythm. Heart sounds: Normal heart sounds, S1 normal and S2 normal. Pulmonary: Effort: Pulmonary effort is normal. Breath sounds: Normal breath sounds. Lymphadenopathy: Cervical: No cervical adenopathy. Right cervical: No superficial cervical adenopathy. Left cervical: No superficial cervical adenopathy. Neurological: Mental Status: She is alert and oriented to person, place, and time. Gait: Gait is intact. ASSESSMENT/PLAN: 1. Sore throat - ICD9: 462, ICD10: J02.9 - suspect viral - Group A strep molecular testing negative - Discussed supportive care treatment with fluids, rest and analgesia. - The patient should follow up in 3-5 days if symptoms persist or worsen Offered covid testing, declines. - STREP A MOLECULAR (POC) - PREDNISONE 20 MG TABLET - LIDOCAINE HCL 2 % MUCOSAL SOLUTION Epi Quiles APRN.[facility] 03-30-2023 History of Presen t illness Narrative Subjective HPI HPI Kristen Suarez is a 52 year old female who presents today for CC of st. This started 4 days ago. Has tried otc medication for relief. Symptoms are worsened by nothing. No sick exposures. 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 MEDICATIONS zolpidem (AMBIEN) 5 mg tablet Take 5 mg by mouth daily at bedtime. folic acid 1 mg tablet Take 2 tablets by mouth every afternoon. methotrexate 2.5 mg tablet TAKE 7 TABLETS BY MOUTH ONCE A WEEK alendronate (FOSAMAX) 70 mg tablet Take 1 tablet by mouth once each week. desmopressin acetate (DDAVP) 0.2 mg tablet Take 2 tablets by mouth twice daily. propranolol (INDERAL) 10 mg tablet Take 1 tablet by mouth three times daily. SUMAtriptan (IMITREX) 50 mg tablet Take 1 tablet by mouth as needed for Migraine Headache (see administration instructions). fluticasone (FLONASE) 50 mcg/actuation nasal spray Use 2 Sprays in each nostril once daily. Rinse mouth after use. (Patient taking differently: Use 2 Sprays in each nostril as needed. Rinse mouth after use.) GLUCOSAMINE HCL/CHONDR JEFFERSON A NA (OSTEO BI-FLEX ORAL) Take by mouth once daily. omeprazole (PRILOSEC) 20 mg capsule Take 20 mg by mouth every Saturday,Saturday,Saturday,Saturday. 1/2 hr before meal. cetirizine hcl(ZYRTEC 10 MG TAB) as necessary calcium carbonate/vitamin d3(CALCIUM 600 + D 600 MG-125 UNIT TAB) Take one(1) tablet daily. NIACIN 250 MG TAB Take one(1) tablet daily. predniSONE (DELTASONE) 20 mg tablet Take 2 tablets by mouth once daily for 5 days. LIDOCAINE VISCOUS 2 % solution Take 5-10 mL by mouth four times a day as needed. FAMILY HISTORY Problem Relation Age of Onset Diabetes Mother None Father Cancer Sister Melamona/ Arm Alzheimer's Disease Maternal Grandmother Social History Tobacco Use Smoking status: Former Packs/day: 0.25 Years: 10.00 Additional pack years: 0.00 Total pack years: 2.50 Types: Cigarettes Quit date: 04/11/1997 Years since quittin.9 Smokeless tobacco: Never Vaping Use Vaping Use: Never used Substance Use Topics Alcohol use: No Drug use: No Review of Systems Constitutional: Positive for fever. HENT: Positive for congestion and sore throat. Negative for ear pain and nosebleeds. Respiratory: Negative for cough, shortness of breath and wheezing. Musculoskeletal: Negative for neck pain. Skin: Negative for itching and rash. Objective Blood pressure 110/80, pulse 88, temperature 37.8 C (100.1 F), resp. rate 20, weight 86.1 kg (189 lb 12.8 oz), last menstrual period 11/10/2012, SpO2 97 %. Physical Exam Constitutional: General: She is not in acute distress. Appearance: She is not toxic-appearing or diaphoretic. HENT: Head: Normocephalic and atraumatic. Mouth/Throat: Pharynx: Uvula midline. Posterior oropharyngeal erythema present. Cardiovascular: Rate and Rhythm: Normal rate and regular rhythm. Heart sounds: Normal heart sounds, S1 normal and S2 normal. Pulmonary: Effort: Pulmonary effort is normal. Breath sounds: Normal breath sounds. Lymphadenopathy: Cervical: No cervical adenopathy. Right cervical: No superficial cervical adenopathy. Left cervical: No superficial cervical adenopathy. Neurological: Mental Status: She is alert and oriented to person, place, and time. Gait: Gait is intact. ASSESSMENT/PLAN: 1. Sore throat - ICD9: 462, ICD10: J02.9 - suspect viral - Group A strep molecular testing negative - Discussed supportive care treatment with fluids, rest and analgesia. - The patient should follow up in 3-5 days if symptoms persist or worsen Offered covid testing, declines. - STREP A MOLECULAR (POC) - PREDNISONE 20 MG TABLET - LIDOCAINE HCL 2 % MUCOSAL SOLUTION Epi Quiles APRN.RESPIRATORY ASSISTANT documented in this encounter [facility] 02-08-2023 Note HNO ID: [id number] Author: Marianne Fuller APRN.RESPIRATORY ASSISTANT Service: ? Author Type: Nurse Practitioner Type: Progress Notes Filed: 02/08/2023 3:44 PM Note Text: CC: Patient presents with: Sinus Problem: Congestion, R ear muffled x 6 days HPI: Kristen Suarez is a 52 year old female who presents to the office with complaint of head congestion, sinus symptoms, and ear symptoms for 6 days. Symptoms are worsening Associated symptoms includes ear pressure . Denies nausea, vomiting , and diarrhea. Treatments tried include nothing so far. with no relief of symptoms. Sick contacts: unknown. History of asthma, frequent episodes of bronchitis, chronic bronchitis, bronchiectasis or COPD: No Smoker: No Seasonal/environmental allergies: No The ROS is otherwise negative. The patient's pmh, medications, allergies, and past visits are reviewed. PHYSICAL EXAM: BP 130/80 Pulse (!) 57 Temp 36.8 ?C (98.3 ?F) Resp 18 Wt 91.4 kg (201 lb 9.6 oz) LMP 11/10/2012 SpO2 96% BMI 40.38 kg/m? General appearance: alert, cooperative, pleasant, in no acute distress Head: Normocephalic Eyes: EOM's intact, conjunctiva pink and moist, no icterus, sclera white, non-injected Ears: Right ear: External ear/canal- Normal, TM - erythematous, bulging. Left ear: External ear/canal- Normal, TM - clear with good landmarks Oropharynx:moist without lesions, No erythema, exudates or tonsillar hypertrophy. Heart: Negative. RRR without obvious murmur, gallop, or rubs. No ectopy. 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 Calculus of gallbladder without mention of cholecystitis or obstruction Diabetes insipidus (HCC) Genital herpes, unspecified PMH - PAST MEDICAL HISTORY OF PANHYPOPITUITARISM-HISTOCYTOSIS X PAST SURGICAL HISTORY Procedure Laterality Date CARPAL TUNNEL Right ESOPHAGOGASTRODUODENOSCOPY TRANSORAL DIAGNOSTIC 11/16/15 EGD mac LAPS SURG CHOLECSTC W/EXPL COMMON DUCT 09/02/08 PAST SURGICAL HISTORY OF left wrist cyst removed PAST SURGICAL HISTORY OF right wrist surgery [facility] PAC [id number] Right removed ALLERGIES Mold, Dust And Pollen [Other] MEDICATIONS zolpidem (AMBIEN) 5 mg tablet Take 5 mg by mouth daily at bedtime. Ciclopirox (LOPROX) 8 % solution Apply to affected area daily at bedtime. folic acid 1 mg tablet Take 2 tablets by mouth every afternoon. methotrexate 2.5 mg tablet TAKE 7 TABLETS BY MOUTH ONCE A WEEK alendronate (FOSAMAX) 70 mg tablet Take 1 tablet by mouth once each week. desmopressin acetate (DDAVP) 0.2 mg tablet Take 2 tablets by mouth twice daily. SUMAtriptan (IMITREX) 50 mg tablet Take 1 tablet by mouth as needed for Migraine Headache (see administration instructions). fluticasone (FLONASE) 50 mcg/actuation nasal spray Use 2 Sprays in each nostril once daily. Rinse mouth after use. (Patient taking differently: Use 2 Sprays in each nostril as needed. Rinse mouth after use.) GLUCOSAMINE HCL/CHONDR JEFFERSON A NA (OSTEO BI-FLEX ORAL) Take by mouth once daily. omeprazole (PRILOSEC) 20 mg capsule Take 20 mg by mouth every Saturday,Saturday,Saturday,Saturday. 1/2 hr before meal. cetirizine hcl(ZYRTEC 10 MG TAB) as necessary calcium carbonate/vitamin d3(CALCIUM 600 + D 600 MG-125 UNIT TAB) Take one(1) tablet daily. NIACIN 250 MG TAB Take one(1) tablet daily. propranolol (INDERAL) 10 mg tablet Take 1 tablet by mouth three times daily. (Patient not taking: Reported on 01/01/2023) FAMILY HISTORY Problem Relation Age of Onset Diabetes Mother None Father Cancer Sister Melamona/ Arm Alzheimer's Disease Maternal Grandmother Social History Tobacco Use Smoking status: Former Packs/day: 0.25 Years: 10.00 Additional pack years: 0.00 Total pack years: 2.50 Types: Cigarettes Quit date: 04/11/1997 Years since quittin.8 Smokeless tobacco: Never Vaping Use Vaping Use: Never used Substance Use Topics Alcohol use: No Drug use: No ASSESSMENT/PLAN: 1. Acute otitis media, right - ICD9: 382.9, ICD10: H66.91 - CEFDINIR 300 MG CAPSULE Prescription instructions reviewed with patient as applicable. Potential red flag symptoms discussed with the patient. Reviewed appropriate action plan to take if red flag symptoms occur. Patient agreeable to treatment plan. Marianne Fuller APRN.[facility] 02-08-2023 History of Presen t illness Narrative CC: Patient presents with: Sinus Problem: Congestion, R ear muffled x 6 days HPI: Kristen Suarez is a 52 year old female who presents to the office with complaint of head congestion, sinus symptoms, and ear symptoms for 6 days. Symptoms are worsening Associated symptoms includes ear pressure . Denies nausea, vomiting , and diarrhea. Treatments tried include nothing so far. with no relief of symptoms. Sick contacts: unknown. History of asthma, frequent episodes of bronchitis, chronic bronchitis, bronchiectasis or COPD: No Smoker: No Seasonal/environmental allergies: No The ROS is otherwise negative. The patient's pmh, medications, allergies, and past visits are reviewed. PHYSICAL EXAM: BP 130/80 Pulse (!) 57 Temp 36.8 C (98.3 F) Resp 18 Wt 91.4 kg (201 lb 9.6 oz) LMP 11/10/2012 SpO2 96% BMI 40.38 kg/m General appearance: alert, cooperative, pleasant, in no acute distress Head: Normocephalic Eyes: EOM's intact, conjunctiva pink and moist, no icterus, sclera white, non-injected Ears: Right ear: External ear/canal- Normal, TM - erythematous, bulging. Left ear: External ear/canal- Normal, TM - clear with good landmarks Oropharynx:moist without lesions, No erythema, exudates or tonsillar hypertrophy. Heart: Negative. RRR without obvious murmur, gallop, or rubs. No ectopy. 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 Calculus of gallbladder without mention of cholecystitis or obstruction Diabetes insipidus (HCC) Genital herpes, unspecified PMH - PAST MEDICAL HISTORY OF PANHYPOPITUITARISM-HISTOCYTOSIS X PAST SURGICAL HISTORY Procedure Laterality Date CARPAL TUNNEL Right ESOPHAGOGASTRODUODENOSCOPY TRANSORAL DIAGNOSTIC 11/16/15 EGD mac LAPS SURG CHOLECSTC W/EXPL COMMON DUCT 09/02/08 PAST SURGICAL HISTORY OF left wrist cyst removed PAST SURGICAL HISTORY OF right wrist surgery [facility] [id number] Right removed ALLERGIES Mold, Dust And Pollen [Other] MEDICATIONS zolpidem (AMBIEN) 5 mg tablet Take 5 mg by mouth daily at bedtime. Ciclopirox (LOPROX) 8 % solution Apply to affected area daily at bedtime. folic acid 1 mg tablet Take 2 tablets by mouth every afternoon. methotrexate 2.5 mg tablet TAKE 7 TABLETS BY MOUTH ONCE A WEEK alendronate (FOSAMAX) 70 mg tablet Take 1 tablet by mouth once each week. desmopressin acetate (DDAVP) 0.2 mg tablet Take 2 tablets by mouth twice daily. SUMAtriptan (IMITREX) 50 mg tablet Take 1 tablet by mouth as needed for Migraine Headache (see administration instructions). fluticasone (FLONASE) 50 mcg/actuation nasal spray Use 2 Sprays in each nostril once daily. Rinse mouth after use. (Patient taking differently: Use 2 Sprays in each nostril as needed. Rinse mouth after use.) GLUCOSAMINE HCL/CHONDR JEFFERSON A NA (OSTEO BI-FLEX ORAL) Take by mouth once daily. omeprazole (PRILOSEC) 20 mg capsule Take 20 mg by mouth every Saturday,Saturday,Saturday,Saturday. 1/2 hr before meal. cetirizine hcl(ZYRTEC 10 MG TAB) as necessary calcium carbonate/vitamin d3(CALCIUM 600 + D 600 MG-125 UNIT TAB) Take one(1) tablet daily. NIACIN 250 MG TAB Take one(1) tablet daily. propranolol (INDERAL) 10 mg tablet Take 1 tablet by mouth three times daily. (Patient not taking: Reported on 01/01/2023) FAMILY HISTORY Problem Relation Age of Onset Diabetes Mother None Father Cancer Sister Melamona/ Arm Alzheimer's Disease Maternal Grandmother Social History Tobacco Use Smoking status: Former Packs/day: 0.25 Years: 10.00 Additional pack years: 0.00 Total pack years: 2.50 Types: Cigarettes Quit date: 04/11/1997 Years since quittin.8 Smokeless tobacco: Never Vaping Use Vaping Use: Never used Substance Use Topics Alcohol use: No Drug use: No ASSESSMENT/PLAN: 1. Acute otitis media, right - ICD9: 382.9, ICD10: H66.91 - CEFDINIR 300 MG CAPSULE Prescription instructions reviewed with patient as applicable. Potential red flag symptoms discussed with the patient. Reviewed appropriate action plan to take if red flag symptoms occur. Patient agreeable to treatment plan. Marianne Fuller APRN.[facility] documented in this encounter [facility] 01-23-2023 Note HNO ID: [id number] Author: Iron Contreras Service: ? Author Type: Physician Type: Progress Notes Filed: 01/23/2023 10:23 PM Note Text: FOLLOW UP PODIATRIC OFFICE VISIT Chief Complaint: This 52 year old who presents for follow up:right great toenail discoloration Patient presents to clinic for evaluation of right great toenail. Patient has discoloratoin of right great toenail that she would like to discuss treatment options She is using over the counter topical cream PAIN EVALUATION No data found in the last 1 encounters. 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 methotrexate 2.5 mg tablet TAKE 7 TABLETS BY MOUTH ONCE A WEEK alendronate (FOSAMAX) 70 mg tablet Take 1 tablet by mouth once each week. desmopressin acetate (DDAVP) 0.2 mg tablet Take 2 tablets by mouth twice daily. SUMAtriptan (IMITREX) 50 mg tablet Take 1 tablet by mouth as needed for Migraine Headache (see administration instructions). fluticasone (FLONASE) 50 mcg/actuation nasal spray Use 2 Sprays in each nostril once daily. Rinse mouth after use. (Patient taking differently: Use 2 Sprays in each nostril as needed. Rinse mouth after use.) GLUCOSAMINE HCL/CHONDR JEFFERSON A NA (OSTEO BI-FLEX ORAL) Take by mouth once daily. omeprazole (PRILOSEC) 20 mg capsule Take 20 mg by mouth every Saturday,Saturday,Saturday,Saturday. 1/2 hr before meal. cetirizine hcl(ZYRTEC 10 MG TAB) as necessary calcium carbonate/vitamin d3(CALCIUM 600 + D 600 MG-125 UNIT TAB) Take one(1) tablet daily. NIACIN 250 MG TAB Take one(1) tablet daily. propranolol (INDERAL) 10 mg tablet Take 1 tablet by mouth three times daily. (Patient not taking: Reported on 01/01/2023) No current facility-administered medications for this visit. ALLERGIES Allergen Reactions Mold, Dust And Poll* Intolerance Eyes water,sneezing,throat itches,and head aches PAST SURGICAL HISTORY Procedure Laterality Date CARPAL TUNNEL Right ESOPHAGOGASTRODUODENOSCOPY TRANSORAL DIAGNOSTIC 11/16/15 EGD mac LAPS SURG CHOLECSTC W/EXPL COMMON DUCT 09/02/08 PAST SURGICAL HISTORY OF left wrist cyst removed PAST SURGICAL HISTORY OF right wrist surgery [facility] [id number] Right removed Physical Exam: OBJECTIVE: Constitutional: Pt is a well developed 52 year old female who is alert, oriented, cooperative and in no apparent distress. Eyes: Following during examination. No redness or drainage. Respiratory: RR normal and nonlabored. Even breathing. No evidence of distress. Psychology: Patient is engaged during conversation. Normal affect and mood. Does not appear depressed or anxious. NVSI unchanged from previous visit. Dermatological: Right great toenail is discolored yellow. Remaining toenails are normal in length. Musculoskeletal/Orthopaedic: Patient has no pain to palpation of right foot ASSESSMENT: (L60.3) Onychodystrophy (primary encounter diagnosis) (B35.1) Onychomycosis PLAN: Discussed discoloration of right great toenail. Reviewed fungal culture. Smeal shows septate hyphae. Culture shows no fungus. Discussed options not limited to topical cream vs lamisil vs laser vs removal Patient is going to continue with topical care. If condition fails to improve, patient to consider removal of toenail Iron Contreras DPM [facility] 01-23-2023 Note HNO ID: [id number] Author: Kriss Narvaez LPN Service: ? Author Type: LICENSED NURSE Type: Progress Notes Filed: 01/23/2023 10:23 PM Note Text: AMB ROOMING INTAKE FLOWSHEET DATA Patient presents with: Right Foot - Nail Fungus, Established Patient, discuss plan of care Kriss Narvaez LPN [facility] 01-23-2023 History of Presen t illness Narrative FOLLOW UP PODIATRIC OFFICE VISIT Chief Complaint: This 52 year old who presents for follow up:right great toenail discoloration Patient presents to clinic for evaluation of right great toenail. Patient has discoloratoin of right great toenail that she would like to discuss treatment options She is using over the counter topical cream PAIN EVALUATION No data found in the last 1 encounters. 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 methotrexate 2.5 mg tablet TAKE 7 TABLETS BY MOUTH ONCE A WEEK alendronate (FOSAMAX) 70 mg tablet Take 1 tablet by mouth once each week. desmopressin acetate (DDAVP) 0.2 mg tablet Take 2 tablets by mouth twice daily. SUMAtriptan (IMITREX) 50 mg tablet Take 1 tablet by mouth as needed for Migraine Headache (see administration instructions). fluticasone (FLONASE) 50 mcg/actuation nasal spray Use 2 Sprays in each nostril once daily. Rinse mouth after use. (Patient taking differently: Use 2 Sprays in each nostril as needed. Rinse mouth after use.) GLUCOSAMINE HCL/CHONDR JEFFERSON A NA (OSTEO BI-FLEX ORAL) Take by mouth once daily. omeprazole (PRILOSEC) 20 mg capsule Take 20 mg by mouth every Saturday,Saturday,Saturday,Saturday. 1/2 hr before meal. cetirizine hcl(ZYRTEC 10 MG TAB) as necessary calcium carbonate/vitamin d3(CALCIUM 600 + D 600 MG-125 UNIT TAB) Take one(1) tablet daily. NIACIN 250 MG TAB Take one(1) tablet daily. propranolol (INDERAL) 10 mg tablet Take 1 tablet by mouth three times daily. (Patient not taking: Reported on 01/01/2023) No current facility-administered medications for this visit. ALLERGIES Allergen Reactions Mold, Dust And Poll* Intolerance Eyes water,sneezing,throat itches,and head aches PAST SURGICAL HISTORY Procedure Laterality Date CARPAL TUNNEL Right ESOPHAGOGASTRODUODENOSCOPY TRANSORAL DIAGNOSTIC 11/16/15 EGD mac LAPS SURG CHOLECSTC W/EXPL COMMON DUCT 09/02/08 PAST SURGICAL HISTORY OF left wrist cyst removed PAST SURGICAL HISTORY OF right wrist surgery [facility] PAC [id number] Right removed Physical Exam: OBJECTIVE: Constitutional: Pt is a well developed 52 year old female who is alert, oriented, cooperative and in no apparent distress. Eyes: Following during examination. No redness or drainage. Respiratory: RR normal and nonlabored. Even breathing. No evidence of distress. Psychology: Patient is engaged during conversation. Normal affect and mood. Does not appear depressed or anxious. NVSI unchanged from previous visit. Dermatological: Right great toenail is discolored yellow. Remaining toenails are normal in length. Musculoskeletal/Orthopaedic: Patient has no pain to palpation of right foot ASSESSMENT: (L60.3) Onychodystrophy (primary encounter diagnosis) (B35.1) Onychomycosis PLAN: Discussed discoloration of right great toenail. Reviewed fungal culture. Smeal shows septate hyphae. Culture shows no fungus. Discussed options not limited to topical cream vs lamisil vs laser vs removal Patient is going to continue with topical care. If condition fails to improve, patient to consider removal of toenail Iron Contreras DPM AMB ROOMING INTAKE FLOWSHEET DATA Patient presents with: Right Foot - Nail Fungus, Established Patient, discuss plan of care Kriss Narvaez LPN documented in this encounter [facility] 01-01-2023 Note HNO ID: [id number] Author: Iron Contreras Service: ? Author Type: Physician Type: Progress Notes Filed: 01/01/2023 12:24 PM Note Text: Initial Podiatric Office Visit: Chief Complaint: This 52 year old female who presents with chief complaint:cellulitis of right great toenail with cellulitis HPI Patient presents ot clinic for evaluation of right great toenail Patient states the toenail has been discolored yellow for 3-4 weeks. She states she will wear nail scottish during the summer so is not sure exactuly how long the nail has been discolored Recently, the toe has been swollen and red. She went to the urgent care. Was placed on keflex and that did help with the redness She sates the pain and swelling has resolved. PAIN EVALUATION No data found in the last 1 encounters. 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 methotrexate 2.5 mg tablet TAKE 7 TABLETS BY MOUTH ONCE A WEEK alendronate (FOSAMAX) 70 mg tablet Take 1 tablet by mouth once each week. desmopressin acetate (DDAVP) 0.2 mg tablet Take 2 tablets by mouth twice daily. SUMAtriptan (IMITREX) 50 mg tablet Take 1 tablet by mouth as needed for Migraine Headache (see administration instructions). fluticasone (FLONASE) 50 mcg/actuation nasal spray Use 2 Sprays in each nostril once daily. Rinse mouth after use. (Patient taking differently: Use 2 Sprays in each nostril as needed. Rinse mouth after use.) GLUCOSAMINE HCL/CHONDR JEFFERSON A NA (OSTEO BI-FLEX ORAL) Take by mouth once daily. omeprazole (PRILOSEC) 20 mg capsule Take 20 mg by mouth every Saturday,Saturday,Saturday,Saturday. 1/2 hr before meal. cetirizine hcl(ZYRTEC 10 MG TAB) as necessary calcium carbonate/vitamin d3(CALCIUM 600 + D 600 MG-125 UNIT TAB) Take one(1) tablet daily. NIACIN 250 MG TAB Take one(1) tablet daily. propranolol (INDERAL) 10 mg tablet Take 1 tablet by mouth three times daily. (Patient not taking: Reported on 01/01/2023) No current facility-administered medications for this visit. ALLERGIES Allergen Reactions Mold, Dust And Poll* Intolerance Eyes water,sneezing,throat itches,and head aches PAST SURGICAL HISTORY Procedure Laterality Date CARPAL TUNNEL Right ESOPHAGOGASTRODUODENOSCOPY TRANSORAL DIAGNOSTIC 11/16/15 EGD mac LAPS SURG CHOLECSTC W/EXPL COMMON DUCT 09/02/08 PAST SURGICAL HISTORY OF left wrist cyst removed PAST SURGICAL HISTORY OF right wrist [facility] [id number] Right removed FAMILY HISTORY Problem Relation Age of Onset Diabetes Mother None Father Cancer Sister Melamona/ Arm Alzheimer's Disease Maternal Grandmother Social History Tobacco Use Smoking status: Former Packs/day: 0.25 Years: 10.00 Additional pack years: 0.00 Total pack years: 2.50 Types: Cigarettes Quit date: 04/11/1997 Years since quittin.7 Smokeless tobacco: Never Vaping Use Vaping Use: Never used Substance Use Topics Alcohol use: No Drug use: No REVIEW OF SYSTEMS GENERAL: Negative for Malaise, significant weight loss, fever RESPIRATORY: Negative for cough, wheezing and shortness of breath CARDIOVASCULAR: Negative for chest pain, leg swelling and palpitations GI: Negative for abdominal discomfort, blood in stools or black stools and change in bowel habits : Negative for dysuria, frequency and incontinence MUSCULOSKELETAL: Negative for joint pain or swelling, back pain, and muscle pain. SKIN: Negative for lesions, rash, and itching. HEMATOLOGY/LYMPHOLOGY Negative for prolonged bleeding, bruising easily, and swollen nodes. ENDOCRINE: Negative for cold or heat intolerance, polyuria, polydipsia and goiter. NEURO: negative Physical Exam: Constitutional: Pt is a well developed 52 year old female who is alert, oriented and cooperative Eyes: Following during examination. No redness or drainage. Respiratory: RR normal and nonlabored. Even breathing. No evidence of distress or shortness of breath. Psychology: Patient is engaged during conversation. Normal affect and mood. Does not appear depressed or anxious during encounter. Vascular: Dorsalis pedis and posterior tibial pulses palpable as b/l Capillary Fill time < 5 seconds to digits 1-5 b/l Skin temperature warm to warm proximal to distal b/l Hair growth present to digits Neurological: intact light touch/epicritic sensation b/l intact protective sensation no significant neurological deficits Dermatological: Right hallux toenail is lifting di (more content not included)... [facility] 01-01-2023 Note HNO ID: [id number] Author: Sally Villar Service: ? Author Type: ? Type: Progress Notes Filed: 01/01/2023 12:24 PM Note Text: Patient presents with: Right Foot - New, Infection: Great toe infection seen at . Patient has completed a course of keflex and mupirocin topical approx 12 days ago. She states infection has cleared would like treatment for nail fungus. [facility] 01-01-2023 History of Presen t illness Narrative Initial Podiatric Office Visit: Chief Complaint: This 52 year old female who presents with chief complaint:cellulitis of right great toenail with cellulitis HPI Patient presents ot clinic for evaluation of right great toenail Patient states the toenail has been discolored yellow for 3-4 weeks. She states she will wear nail scottish during the summer so is not sure exactuly how long the nail has been discolored Recently, the toe has been swollen and red. She went to the urgent care. Was placed on keflex and that did help with the redness She sates the pain and swelling has resolved. PAIN EVALUATION No data found in the last 1 encounters. 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 methotrexate 2.5 mg tablet TAKE 7 TABLETS BY MOUTH ONCE A WEEK alendronate (FOSAMAX) 70 mg tablet Take 1 tablet by mouth once each week. desmopressin acetate (DDAVP) 0.2 mg tablet Take 2 tablets by mouth twice daily. SUMAtriptan (IMITREX) 50 mg tablet Take 1 tablet by mouth as needed for Migraine Headache (see administration instructions). fluticasone (FLONASE) 50 mcg/actuation nasal spray Use 2 Sprays in each nostril once daily. Rinse mouth after use. (Patient taking differently: Use 2 Sprays in each nostril as needed. Rinse mouth after use.) GLUCOSAMINE HCL/CHONDR JEFFERSON A NA (OSTEO BI-FLEX ORAL) Take by mouth once daily. omeprazole (PRILOSEC) 20 mg capsule Take 20 mg by mouth every Saturday,Saturday,Saturday,Saturday. 1/2 hr before meal. cetirizine hcl(ZYRTEC 10 MG TAB) as necessary calcium carbonate/vitamin d3(CALCIUM 600 + D 600 MG-125 UNIT TAB) Take one(1) tablet daily. NIACIN 250 MG TAB Take one(1) tablet daily. propranolol (INDERAL) 10 mg tablet Take 1 tablet by mouth three times daily. (Patient not taking: Reported on 01/01/2023) No current facility-administered medications for this visit. ALLERGIES Allergen Reactions Mold, Dust And Poll* Intolerance Eyes water,sneezing,throat itches,and head aches PAST SURGICAL HISTORY Procedure Laterality Date CARPAL TUNNEL Right ESOPHAGOGASTRODUODENOSCOPY TRANSORAL DIAGNOSTIC 11/16/15 EGD mac LAPS SURG CHOLECSTC W/EXPL COMMON DUCT 09/02/08 PAST SURGICAL HISTORY OF left wrist cyst removed PAST SURGICAL HISTORY OF right wrist surgery [facility] [id number] Right removed FAMILY HISTORY Problem Relation Age of Onset Diabetes Mother None Father Cancer Sister Melamona/ Arm Alzheimer's Disease Maternal Grandmother Social History Tobacco Use Smoking status: Former Packs/day: 0.25 Years: 10.00 Additional pack years: 0.00 Total pack years: 2.50 Types: Cigarettes Quit date: 04/11/1997 Years since quittin.7 Smokeless tobacco: Never Vaping Use Vaping Use: Never used Substance Use Topics Alcohol use: No Drug use: No REVIEW OF SYSTEMS GENERAL: Negative for Malaise, significant weight loss, fever RESPIRATORY: Negative for cough, wheezing and shortness of breath CARDIOVASCULAR: Negative for chest pain, leg swelling and palpitations GI: Negative for abdominal discomfort, blood in stools or black stools and change in bowel habits : Negative for dysuria, frequency and incontinence MUSCULOSKELETAL: Negative for joint pain or swelling, back pain, and muscle pain. SKIN: Negative for lesions, rash, and itching. HEMATOLOGY/LYMPHOLOGY Negative for prolonged bleeding, bruising easily, and swollen nodes. ENDOCRINE: Negative for cold or heat intolerance, polyuria, polydipsia and goiter. NEURO: negative Physical Exam: Constitutional: Pt is a well developed 52 year old female who is alert, oriented and cooperative Eyes: Following during examination. No redness or drainage. Respiratory: RR normal and nonlabored. Even breathing. No evidence of distress or shortness of breath. Psychology: Patient is engaged during conversation. Normal affect and mood. Does not appear depressed or anxious during encounter. Vascular: Dorsalis pedis and posterior tibial pulses palpable as b/l Capillary Fill time < 5 seconds to digits 1-5 b/l Skin temperature warm to warm proximal to distal b/l Hair growth present to digits Neurological: intact light touch/epicritic sensation b/l intact protective sensation no significant neurological deficits Dermatological: Right hallux toenail is lifting distal laterally. New nail is forming and appears clear. No drainage, no redness, no local signs of infection are present. Webspaces clean and dry 1-4 b/l. Skin appears well hydrated and supple. good color, texture, turgor. No open lesions present. No callosities present. Musculoskeletal/Orthopaedic: Patient has no pain to palpation of b/l feet Radiographs: n/a ASSESSMENT: (L60.3) Onychodystrophy (primary encounter diagnosis) (L03.031, L02.611) Cellulitis and abscess of toe of right foot PLAN: Discussed appearance of right hallux. No signs of cellulitis at this time The right hallux nail was yellow distally and is found to be lifting laterally. I discussed obtaining sample of the nail via debridement and if this is fungal, we could discuss various treatment options not limited to topoical medication vs oral medication. The nail was debrided and sent for culture Cellulitis has resolved and I wonder if some of the redness was from inflammation along the proximal lateral nail fold due to lifting of nial plate. Will call with results. Iron Contreras DPM Podiatry [address] [facility] [id number] Dept: [phone] Dept Patient presents with: Right Foot - New, Infection: Great toe infection seen at . Patient has completed a course of keflex and mupirocin topical approx 12 days ago. She states infection has cleared would like treatment for nail fungus. documented in this encounter [facility] 12-14-2022 Note HNO ID: [id number] Author: Abby Riley APRN.RESPIRATORY ASSISTANT Service: ? Author Type: Nurse Practitioner Type: Progress Notes Filed: 12/14/2022 11:09 AM Note Text: Subjective The history is provided by the patient. No speech and language assistant was used. HPI Kristen Suarez is a 52 year old female who presents today for CC of right great toe redness and swelling around cuticle, tender to touch. She has not used any treatment or medicaitons. She does have an appointment with hat forming machine feeder in 3 weeks to address possible toe nail fungus. BP 128/82 Pulse 81 Temp 37.3 ?C (99.1 ?F) (Tympanic) Resp 18 Wt 94.5 kg (208 lb 6.4 oz) LMP 11/10/2012 SpO2 95% BMI 41.74 kg/m? 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 Musculoskeletal: Negative for joint pain and myalgias. Skin: Negative for itching and rash. Skin around right great toe cuticle red All other systems reviewed and are negative. Objective Physical Exam Vitals and nursing note reviewed. Pulmonary: Effort: Pulmonary effort is normal. Musculoskeletal: Feet: Comments: Redness and swelling in marked area, no fluctuant, no purulent drainage Skin: General: Skin is warm and dry. Findings: Erythema present. Neurological: Mental Status: She is alert and oriented to person, place, and time. Psychiatric: Mood and Affect: Affect normal. ASSESSMENT/PLAN: 1. Paronychia of great toe of right foot - ICD9: 681.11, ICD10: L03.031 - Begin treatment with Cephalaxin (Keflex) - No lymphangetic streaking, this was defined for patient to watch for and to seek medical care immediately if appears - Mupirocin topically - When to seek higher level of care discussed. - Follow up with podiatry prn Diagnosis and treatment plan were discussed and questions were answered to the patient's satisfaction. Pt acknowledged understanding of concepts and follow up plan. Specific signs and symptoms that would indicate the need for higher level of care were discussed in detail warranting prompt ER evaluation. Abby Riley APRN.[facility] 12-14-2022 Miscellaneous Notes Prescriptions sent to pharmacy Abby Riley APRN.MIKA Patient calling and states she was seen by Abby Riley CNP today at [facility] and prescriptions for an antibiotic and a cream were to be sent to [facility] and have not been. Pt states she is at the pharmacy now and asking if provider will send scripts. Please call pt with update at [phone]. Thank you. documented in this encounter [facility] 12-14-2022 Miscellaneous Notes Addended by: ABBY RILEY on: 12/14/2022 11:37 AM Modules accepted: Orders documented in this encounter [facility] 12-14-2022 History of Presen t illness Narrative Images from the original note were not included. Subjective The history is provided by the patient. No speech and language assistant was used. YUSRA Suarez is a 52 year old female who presents today for CC of right great toe redness and swelling around cuticle, tender to touch. She has not used any treatment or medicaitons. She does have an appointment with hat forming machine feeder in 3 weeks to address possible toe nail fungus. 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 Musculoskeletal: Negative for joint pain and myalgias. Skin: Negative for itching and rash. Skin around right great toe cuticle red All other systems reviewed and are negative. Objective Physical Exam Vitals and nursing note reviewed. Pulmonary: Effort: Pulmonary effort is normal. Musculoskeletal: Feet: Comments: Redness and swelling in marked area, no fluctuant, no purulent drainage Skin: General: Skin is warm and dry. Findings: Erythema present. Neurological: Mental Status: She is alert and oriented to person, place, and time. Psychiatric: Mood and Affect: Affect normal. ASSESSMENT/PLAN: 1. Paronychia of great toe of right foot - ICD9: 681.11, ICD10: L03.031 - Begin treatment with Cephalaxin (Keflex) - No lymphangetic streaking, this was defined for patient to watch for and to seek medical care immediately if appears - Mupirocin topically - When to seek higher level of care discussed. - Follow up with podiatry prn Diagnosis and treatment plan were discussed and questions were answered to the patient's satisfaction. Pt acknowledged understanding of concepts and follow up plan. Specific signs and symptoms that would indicate the need for higher level of care were discussed in detail warranting prompt ER evaluation. Abby Riley APRN.RESPIRATORY ASSISTANT documented in this encounter [facility] 11-24-2022 Note HNO ID: [id number] Author: Jhonny Drake APRN.MIKA Service: ? Author Type: Nurse Practitioner Type: Progress Notes Filed: 11/24/2022 3:36 PM Note Text: Subjective HPI Nontoxic-appearing female presents urgent care chief complaint rash. Duration of symptoms 1 day. Associated symptoms erythematous based vesicles on left side of cheek. Patient states rash stings and davey at times. It is slightly painful. Denies any pruritus. No sick contacts. No recent environmental or lifestyle changes. Denies any fever body aches chills productive cough chest pain shortness of breath pleuritic pain hemoptysis nausea vomiting abdominal pain change in bowel or bladder habits. Past medical history prescription medication use and allergies reviewed. 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 Calculus of gallbladder without mention of cholecystitis or obstruction Diabetes insipidus (HCC) Genital herpes, unspecified PMH - PAST MEDICAL HISTORY OF PANHYPOPITUITARISM-HISTOCYTOSIS X PAST SURGICAL HISTORY Procedure Laterality Date CARPAL TUNNEL Right ESOPHAGOGASTRODUODENOSCOPY TRANSORAL DIAGNOSTIC 11/16/15 EGD mac LAPS SURG CHOLECSTC W/EXPL COMMON DUCT 09/02/08 PAST SURGICAL HISTORY OF left wrist cyst removed PAST SURGICAL HISTORY OF right wrist surgery [facility] [id number] Right removed ALLERGIES Mold, Dust And Pollen [Other] MEDICATIONS folic acid 1 mg tablet Take 2 tablets by mouth every afternoon. methotrexate 2.5 mg tablet TAKE 7 TABLETS BY MOUTH ONCE A WEEK alendronate (FOSAMAX) 70 mg tablet Take 1 tablet by mouth once each week. desmopressin acetate (DDAVP) 0.2 mg tablet Take 2 tablets by mouth twice daily. propranolol (INDERAL) 10 mg tablet Take 1 tablet by mouth three times daily. SUMAtriptan (IMITREX) 50 mg tablet Take 1 tablet by mouth as needed for Migraine Headache (see administration instructions). fluticasone (FLONASE) 50 mcg/actuation nasal spray Use 2 Sprays in each nostril once daily. Rinse mouth after use. (Patient taking differently: Use 2 Sprays in each nostril as needed. Rinse mouth after use.) GLUCOSAMINE HCL/CHONDR JEFFERSON A NA (OSTEO BI-FLEX ORAL) Take by mouth once daily. omeprazole (PRILOSEC) 20 mg capsule Take 20 mg by mouth every Saturday,Saturday,Saturday,Saturday. 1/2 hr before meal. cetirizine hcl(ZYRTEC 10 MG TAB) as necessary calcium carbonate/vitamin d3(CALCIUM 600 + D 600 MG-125 UNIT TAB) Take one(1) tablet daily. NIACIN 250 MG TAB Take one(1) tablet daily. FAMILY HISTORY Problem Relation Age of Onset Diabetes Mother None Father Cancer Sister Melamona/ Arm Alzheimer's Disease Maternal Grandmother Social History Tobacco Use Smoking status: Former Packs/day: 0.25 Years: 10.00 Total pack years: 2.50 Types: Cigarettes Quit date: 04/11/1997 Years since quittin.6 Smokeless tobacco: Never Substance Use Topics Alcohol use: No Drug use: No BP 138/80 Pulse 72 Temp 37.4 ?C (99.4 ?F) Resp 21 Wt 93.5 kg (206 lb 3.2 oz) LMP 11/10/2012 SpO2 95% BMI 41.30 kg/m? Review of Systems Constitutional: Negative for chills, fever and malaise/fatigue. HENT: Negative for congestion, ear discharge, ear pain, sinus pain and sore throat. Eyes: Negative for blurred vision, pain, discharge and redness. Respiratory: Negative for cough, hemoptysis, sputum production, shortness of breath, wheezing and stridor. Cardiovascular: Negative for chest pain. Gastrointestinal: Negative for abdominal pain, diarrhea, nausea and vomiting. Musculoskeletal: Negative for myalgias. Skin: Positive for rash. Negative for itching. Neurological: Negative for dizziness and headaches. Objective Physical Exam Constitutional: General: She is not in acute distress. Appearance: She is not diaphoretic. HENT: Head: Normocephalic. Jaw: No trismus, tenderness, swelling or pain on movement. Comments: Erythematous based rash with fluid-filled vesicles noted highlighted area. No eye involvement. No eye pain. No visual acuity changes. Mouth/Throat: Mouth: Mucous membranes are moist. Pharynx: Oropharynx is clear. Uvula midline. No pharyngeal swelling, oropharyngeal exudate, posterior oropharyngeal erythema or uvula swelling. Eyes: Conjunctiva/sclera: Conjunctivae normal. Pupils: Pupils are equal, round, and reactive to light. Cardiovascular: Rate and Rhythm: Normal rate and regular rhythm. Heart sounds: Normal heart sounds. Pulmonary: Effort: Pulmonary effort is normal. No tachypnea, accessory muscle usage or respiratory distress. Breath sounds: Normal breath sounds. No stridor. No wheezing, rhonchi or rales. Musculoskeletal: Cervical back: Normal range of motion and neck supple. No edema, erythema, rigidity or tender (more content not included)... [facility] 11-24-2022 History of Presen t illness Narrative Images from the original note were not included. Subjective HPI Nontoxic-appearing female presents urgent care chief complaint rash. Duration of symptoms 1 day. Associated symptoms erythematous based vesicles on left side of cheek. Patient states rash stings and davey at times. It is slightly painful. Denies any pruritus. No sick contacts. No recent environmental or lifestyle changes. Denies any fever body aches chills productive cough chest pain shortness of breath pleuritic pain hemoptysis nausea vomiting abdominal pain change in bowel or bladder habits. Past medical history prescription medication use and allergies reviewed. 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 Calculus of gallbladder without mention of cholecystitis or obstruction Diabetes insipidus (HCC) Genital herpes, unspecified PMH - PAST MEDICAL HISTORY OF PANHYPOPITUITARISM-HISTOCYTOSIS X PAST SURGICAL HISTORY Procedure Laterality Date CARPAL TUNNEL Right ESOPHAGOGASTRODUODENOSCOPY TRANSORAL DIAGNOSTIC 11/16/15 EGD mac LAPS SURG CHOLECSTC W/EXPL COMMON DUCT 09/02/08 PAST SURGICAL HISTORY OF left wrist cyst removed PAST SURGICAL HISTORY OF right wrist surgery [facility] [id number] Right removed ALLERGIES Mold, Dust And Pollen [Other] MEDICATIONS folic acid 1 mg tablet Take 2 tablets by mouth every afternoon. methotrexate 2.5 mg tablet TAKE 7 TABLETS BY MOUTH ONCE A WEEK alendronate (FOSAMAX) 70 mg tablet Take 1 tablet by mouth once each week. desmopressin acetate (DDAVP) 0.2 mg tablet Take 2 tablets by mouth twice daily. propranolol (INDERAL) 10 mg tablet Take 1 tablet by mouth three times daily. SUMAtriptan (IMITREX) 50 mg tablet Take 1 tablet by mouth as needed for Migraine Headache (see administration instructions). fluticasone (FLONASE) 50 mcg/actuation nasal spray Use 2 Sprays in each nostril once daily. Rinse mouth after use. (Patient taking differently: Use 2 Sprays in each nostril as needed. Rinse mouth after use.) GLUCOSAMINE HCL/CHONDR JEFFERSON A NA (OSTEO BI-FLEX ORAL) Take by mouth once daily. omeprazole (PRILOSEC) 20 mg capsule Take 20 mg by mouth every Saturday,Saturday,Saturday,Saturday. 1/2 hr before meal. cetirizine hcl(ZYRTEC 10 MG TAB) as necessary calcium carbonate/vitamin d3(CALCIUM 600 + D 600 MG-125 UNIT TAB) Take one(1) tablet daily. NIACIN 250 MG TAB Take one(1) tablet daily. FAMILY HISTORY Problem Relation Age of Onset Diabetes Mother None Father Cancer Sister Melevelyn/ Arm Alzheimer's Disease Maternal Grandmother Social History Tobacco Use Smoking status: Former Packs/day: 0.25 Years: 10.00 Total pack years: 2.50 Types: Cigarettes Quit date: 04/11/1997 Years since quittin.6 Smokeless tobacco: Never Substance Use Topics Alcohol use: No Drug use: No BP 138/80 Pulse 72 Temp 37.4 C (99.4 F) Resp 21 Wt 93.5 kg (206 lb 3.2 oz) LMP 11/10/2012 SpO2 95% BMI 41.30 kg/m Review of Systems Constitutional: Negative for chills, fever and malaise/fatigue. HENT: Negative for congestion, ear discharge, ear pain, sinus pain and sore throat. Eyes: Negative for blurred vision, pain, discharge and redness. Respiratory: Negative for cough, hemoptysis, sputum production, shortness of breath, wheezing and stridor. Cardiovascular: Negative for chest pain. Gastrointestinal: Negative for abdominal pain, diarrhea, nausea and vomiting. Musculoskeletal: Negative for myalgias. Skin: Positive for rash. Negative for itching. Neurological: Negative for dizziness and headaches. Objective Physical Exam Constitutional: General: She is not in acute distress. Appearance: She is not diaphoretic. HENT: Head: Normocephalic. Jaw: No trismus, tenderness, swelling or pain on movement. Comments: Erythematous based rash with fluid-filled vesicles noted highlighted area. No eye involvement. No eye pain. No visual acuity changes. Mouth/Throat: Mouth: Mucous membranes are moist. Pharynx: Oropharynx is clear. Uvula midline. No pharyngeal swelling, oropharyngeal exudate, posterior oropharyngeal erythema or uvula swelling. Eyes: Conjunctiva/sclera: Conjunctivae normal. Pupils: Pupils are equal, round, and reactive to light. Cardiovascular: Rate and Rhythm: Normal rate and regular rhythm. Heart sounds: Normal heart sounds. Pulmonary: Effort: Pulmonary effort is normal. No tachypnea, accessory muscle usage or respiratory distress. Breath sounds: Normal breath sounds. No stridor. No wheezing, rhonchi or rales. Musculoskeletal: Cervical back: Normal range of motion and neck supple. No edema, erythema, rigidity or tenderness. No pain with movement. Normal range of motion. Lymphadenopathy: Cervical: No cervical adenopathy. Skin: General: Skin is warm and dry. Neurological: Mental Status: She is alert and oriented to person, place, and time. ASSESSMENT/PLAN: 1. Herpes zoster with complication - ICD9: 053.8, ICD10: B02.8 Patient diagnosed with shingles. PCR test offered declined testing at this time. We will treat as shingles due to rash presentation. Placed on Valtrex. Creatinine from September of this year 0.94. Estimated GFR 80. Rash and eye involvement complications discussed with patient. Red flags for prompt ophthalmology referral discussed. Patient was educated on supportive therapies. Patient will follow up with primary care provider as needed. Patient was instructed to immediately proceed to emergency room for any new, worsening, or symptoms lasting longer than anticipated. The patient's clinical presentation is otherwise unremarkable at this time. Based on exam and clinical finding, the patient is stable for discharge. Plan of care was discussed with patient. Patient verbalizes understanding and agrees to plan of care. This note was generated using [employer] software. It may contain errors in wording, punctuation, or spelling. 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 documented as of this encounter (statuses as of 12/14/2022) [facility] History of Past illness Narrative* Problem Noted Date Diagnosed Date Resolved Date Reticulosarcoma, 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 documented as of this encounter (statuses as of 01/01/2023) [place] [id number] History of Past illness Narrative* Problem Noted Date Diagnosed Date Resolved Date Reticulosarcoma, 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 documented as of this encounter (statuses as of 01/24/2023) [facility] History of Past illness Narrative* Problem Noted Date Diagnosed Date Resolved Date Reticulosarcoma, 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 documented as of this encounter (statuses as of 02/09/2023) [place] [id number] History of Past illness Narrative* Problem Noted Date Diagnosed Date Resolved Date Reticulosarcoma, 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 documented as of this encounter (statuses as of 03/30/2023) [facility] Herpes zoster with complication- Primary Herpes zoster with unspecified complication [facility] Diagnosis Paronychia of great toe of right foot- Primary Onychia and paronychia of toe [facility] Onychodystrophy- Primary Other specified disease of nail Cellulitis and abscess of toe of right foot [facility] Diagnosis Onychodystrophy- Primary Other specified disease of nail Onychomycosis Dermatophytosis of nail [facility] Diagnosis Acute otitis media, right- Primary Unspecified otitis media [facility] Diagnosis Sore throat- Primary Acute pharyngitis documented in this encounter [facility] Summary Purpose Family History No Family History Records Found Advance Directives No Advanced Directives Records Found Additional Source Comments Source Comments (unrecognize d section and content) In the event this informatio n is protected by the Federal Confidentiality of Alcohol and Drug Abuse Patient Records regulations: The Federal rules restrict any use of the information to criminally investigate or prosecute any alcohol or drug abuse patient.[facility] the event this information is protected by the Federal Confidentiality of Alcohol and Drug Abuse Patient Records regulations: The Federal rules restrict any use of the information to criminally investigate or prosecute any alcohol or drug abuse patient.[facility] the event this information is protected by the Federal Confidentiality of Alcohol and Drug Abuse Patient Records regulations: The Federal rules restrict any use of the information to criminally investigate or prosecute any alcohol or drug abuse patient.[facility] the event this information is protected by the Federal Confidentiality of Alcohol and Drug Abuse Patient Records regulations: The Federal rules restrict any use of the information to criminally investigate or prosecute any alcohol or drug abuse patient.[facility] the event this information is protected by the Federal Confidentiality of Alcohol and Drug Abuse Patient Records regulations: The Federal rules restrict any use of the information to criminally investigate or prosecute any alcohol or drug abuse patient.[facility] the event this information is protected by the Federal Confidentiality of Alcohol and Drug Abuse Patient Records regulations: The Federal rules restrict any use of the information to criminally investigate or prosecute any alcohol or drug abuse patient.[facility] the event this information is protected by the Federal Confidentiality of Alcohol and Drug Abuse Patient Records regulations: The Federal rules restrict any use of the information to criminally investigate or prosecute any alcohol or drug abuse patient.[facility] Reason for Visit (unrecogniz ed section and content) Reason Comments right big toe infection X 3 days Reason Comments Patient Request Reason Comments New Great toe infection seen at [facility]. Infection Great toe infection seen at . Reason Comments Nail Fungus Established Patient discuss plan of care Reason Comments Sinus Problem Congestion, R ear mu ffled x 6 days Reason Comments Sore Throat X 4 days Care Teams (unrecognized sec tion and content) Wet Press Tender Relationship Specialty Start Date End Date Beto Glover DO [address] [facility] [place] [address] PCP - General Family Medicine 12/14/22 Wet Press Tender Relationship Specialty Start Date End Date Beto Glover DO [address] [place] [address] PCP - General Family Medicine 12/14/22 Wet Press Tender Relationship Specialty Start Date End Date Beto Glover DO [address] [place] [address] PCP - General Family Medicine 12/14/22 INFORMATION SOURCE (unrecogn ized section and content) FOR RECORDS PERTAINING TO PATIENTS WHO ARE OR HAVE BEEN ENROLLED IN A CHEMICAL DEPENDENCY/SUBSTANCEABUSE PROGRAM, SOME INFORMATION MAY BE OMITTED. This clinical summary was aggregated from multiple sources. Caution should be exercised in using it in the provision of clinical care. This summary normalizes information from multiple sources, and as a consequence, information in this document may materially change the coding, format and clinical context of patient data. In addition, data may be omitted in some cases. CLINICAL DECISIONS SHOULD BE BASED ON THE PRIMARY CLINICAL RECORDS. [facility]. provides no warranty or guarantee of the accuracy or completeness of information in this document.
[2023-05-30 12:14] LABS: Basophil# 0.07 X10^3/uL; Eosinophils% 4.3 % (0-5); Hematocrit 41.8 % (37-47); Hemoglobin 12.9 g/dL (12.0-15.0); Lymphocyte % 30.3 % (19-41); Mean Corp Hgb Conc 30.9 g/dL (32-36); Mean Corpuscular Hgb 26.7 pg (27.0-32.0); Mean Corpuscular Volume 86.5 fL (81-99); Mean Platelet Vol. 11.2 fl (6.2-12.0); Monocyte# 0.47 X10^3/uL; Monocyte% 6.8 % (0-10); NRBC Flagged by Analyzer 0 % (0-5); Neutrophil # 3.96 X10^3/uL (2.7-7.7); Neutrophil % 57.2 % (47-70); Platelet Count 342 K/mm3 (150-450); RBC Distribution Width CV 14.7 % (11.6-14.6); RBC Distribution Width SD 46.8 fl (35.1-43.9); Red Blood Count 4.83 M/mm3 (4.2-5.4); White Blood Count 6.9 K/mm3 (4.4-11.0)
[2023-05-30 13:13] LABS: ALB/GLOB Ratio 0.9 RATIO (0.9-2.4); AST(SGOT) 14 U/L (15-37); Alanine Aminotransfer ALT/SGPT 19 U/L (13-56); Albumin, Serum 3.7 g/dL (3.2-5.0); Alkaline Phosphatase 81 U/L (45-117); Anion Gap 7 (5-15); BUN 17 mg/dL (7-18); BUN/Creat Ratio 20.3 RATIO (10-20); Calcium,Total 9.7 mg/dL (8.5-10.1); Chloride 106 mmol/L (98-107); Creatinine, Serum 0.84 mg/dL (0.55-1.02); EST Glomerular Filtration Rate 76 mL/min (>60); Est Glom Filt Rate - Afr Amer 92 mL/min (>60); Globulin 3.9 g/dL (2.2-4.2); Glucose 112 mg/dL (74-106); Potassium 4.1 mmol/L (3.5-5.1); Protein, Total 7.6 g/dL (6.4-8.2); Sodium Level 139 mmol/L (136-145)
== END | disposition home or self-care (01) ==
LOC: MTLAB 10:37
PROVIDERS: PCP Family Medicine; Referring Provider Internal Medicine Rheumatology; Visit Provider Internal Medicine Rheumatology
DX: M46.90 Unspecified inflammatory spondylopathy, site unspecified (principal); Z79.899 Other long term (current) drug therapy
CPT/HCPCS: 36415; 80053; 85025

== ENCOUNTER → 2023-06-03 | Outpatient (CLI) | payer MEDICARE, SELFPAY ==
--- OUTSIDE RECORDS SUMMARY | 2023-06-03 12:33 | XMS RPT_ITS | CCD ---
Author Name Unknown Address [address] [place] [address] Organization [facility] Care Team Providers Care Operator Engineer Name Role Phone Beto Sanabria MD Primary Care Provider Beto Glover DO Primary Care Provider IRON [...] [Other] Propensity to adverse reactions 8 Intolerance [facility] Work Phone: (1 source) OTHER; Translations: [OTHER] Propensity to adverse reactions (disorder) 8 [facility] Repository Medications Current Medications Medication Drug [...] 10:16-0500 Body temperature 100.09 [degF] Epi Quiles APRN.BUMPER STRAIGHTENER Work Phone: [facility] 03-30-2023 10:16-0500 Body weight 86.09 kg Epi Quiles APRN.BUMPER STRAIGHTENER Work Phone: [facility] 03-30-2023 10:16-0500 Diastolic blood pressure 80 mm[Hg] Epi Quiles APRN.BUMPER STRAIGHTENER Work Phone: [facility] 03-30-2023 10:16-0500 Heart rate 88 /min Epi Quiles APRN.BUMPER STRAIGHTENER Work Phone: [facility] 03-30-2023 10:16-0500 Respiratory rate 20 /min Epi Quiles APRN.BUMPER STRAIGHTENER Work Phone: [facility] 03-30-2023 10:16-0500 SaO2% (BldA) [Mass fraction] 97 % Epi Quiles APRN.BUMPER STRAIGHTENER Work Phone: [facility] 03-30-2023 10:16-0500 Systolic blood pressure 110 mm[Hg] Epi Quiles APRN.BUMPER STRAIGHTENER Work Phone: [facility] 02-08-2023 15:35-0400 Body temperature 98.29 [degF] Marianne Fuller APRN.BUMPER STRAIGHTENER Work Phone: [facility] 02-08-2023 15:35-0400 Body weight 91.44 kg Marianne Fuller APRN.BUMPER STRAIGHTENER Work Phone: [facility] 02-08-2023 15:35-0400 Diastolic blood pressure 80 mm[Hg] Marianne Fuller SHORTHAND REPORTER.BUMPER STRAIGHTENER Work Phone: [facility] 02-08-2023 15:35-0400 Heart rate 57 /min Marianne Fuller SHORTHAND REPORTER.BUMPER STRAIGHTENER Work Phone: [facility] 02-08-2023 15:35-0400 Respiratory rate 18 /min Marianne Fuller SHORTHAND REPORTER.BUMPER STRAIGHTENER Work Phone: [facility] 02-08-2023 15:35-0400 SaO2% (BldA) [Mass fraction] 96 % Marianne Fuller SHORTHAND REPORTER.BUMPER STRAIGHTENER Work Phone: [facility] 02-08-2023 15:35-0400 Systolic blood pressure 130 mm[Hg] Marianne Fuller SHORTHAND REPORTER.BUMPER STRAIGHTENER Work Phone: [facility] 12-14-2022 10:08-0400 Body temperature 99.1 [degF] Abby Osvaldo SHORTHAND REPORTER.BUMPER STRAIGHTENER Work Phone: [facility] 12-14-2022 10:08-0400 Body weight 94.53 kg Abby Osvaldo SHORTHAND REPORTER.BUMPER STRAIGHTENER Work Phone: [facility] 12-14-2022 10:08-0400 Diastolic blood pressure 82 mm[Hg] Abby Osvaldo SHORTHAND REPORTER.BUMPER STRAIGHTENER Work Phone: [facility] 12-14-2022 10:08-0400 Heart rate 81 /min Abby Osvaldo SHORTHAND REPORTER.BUMPER STRAIGHTENER Work Phone: [facility] 12-14-2022 10:08-0400 Respiratory rate 18 /min Abby Osvaldo SHORTHAND REPORTER.BUMPER STRAIGHTENER Work Phone: [facility] 12-14-2022 10:08-0400 SaO2% (BldA) [Mass fraction] 95 % Abby Osvaldo SHORTHAND REPORTER.BUMPER STRAIGHTENER Work Phone: [facility] 12-14-2022 10:08-0400 Systolic blood pressure 128 mm[Hg] Abby Osvaldo SHORTHAND REPORTER.BUMPER STRAIGHTENER Work Phone: [facility] 11-24-2022 15:12-0400 Body temperature 99.39 [degF] Jhonny Drake SHORTHAND REPORTER.BUMPER STRAIGHTENER Work Phone: [facility] 11-24-2022 15:12-0400 Body weight 93.53 kg Jhonny Drake SHORTHAND REPORTER.BUMPER STRAIGHTENER Work Phone: [facility] 11-24-2022 15:12-0400 Diastolic blood pressure 80 mm[Hg] Jhonny Drake SHORTHAND REPORTER.BUMPER STRAIGHTENER Work Phone: [facility] 11-24-2022 15:12-0400 Heart rate 72 /min Jhonny Drake SHORTHAND REPORTER.BUMPER STRAIGHTENER Work Phone: [facility] 11-24-2022 15:12-0400 Respiratory rate 21 /min Jhonny Drake SHORTHAND REPORTER.BUMPER STRAIGHTENER Work Phone: [facility] 11-24-2022 15:12-0400 SaO2% (BldA) [Mass fraction] 95 % Jhonny Drake SHORTHAND REPORTER.BUMPER STRAIGHTENER Work Phone: [facility] 11-24-2022 15:12-0400 Systolic blood pressure 138 mm[Hg] Jhonny Drake SHORTHAND REPORTER.BUMPER STRAIGHTENER Work Phone: [facility] Encounters Encounter Date Encounter Type Care Provider Facility Start: 03-30-2023 End: 03-30-2023 [facility] Facility:[facility] Start: 03-30-2023 End: 03-30-2023 Patient encounter procedure Epi Quiles SHORTHAND REPORTER.BUMPER STRAIGHTENER Work Phone: [facility] Procedures Date Procedure Procedure Detail Performing Clinician Start: 03-30-2023 STREP A MOLECULAR (POC) Debra Emerson SHORTHAND REPORTER.BUMPER STRAIGHTENER Work Phone: Start: 01-01-2023 Tiss shaji slide samps skn/hr/nls fngi/ectoparasit Iron Contreras Work Phone: Start: 11-30-2016 Mammography [facility] SHORTHAND REPORTER.BUMPER STRAIGHTENER Work Phone: Plan of Treatment Date Care Activity Detail Author Start: 01-11-2023 Covid-19 Vaccine () Covid-19 Vaccine () [facility] Start: 01-11-2023 Influenza vaccination [facility] Start: 09-04-2022 Pneumococcal vaccination Pneumococcal Vaccine (3 - PCV) [facility] Start: 05-13-2022 DEPRESSION ASSESSMENT DEPRESSION ASSESSMENT [facility] Start: 09-19-2021 COVID-19 VACCINE (4 - Booster for Pfizer series) COVID-19 VACCINE (4 - Booster for Pfizer series) [facility] Start: 09-19-2021 COVID-19 VACCINE (4 - Pfizer risk series) COVID-19 VACCINE (4 - Pfizer risk series) [facility] Start: 11-16-2018 PAP TESTING PAP TESTING [facility] Start: 04-29-2018 PNEUMOCOCCAL (2 - PCV) PNEUMOCOCCAL (2 - PCV) [facility] Start: 04-29-2018 Pneumococcal vaccination Pneumococcal Vaccine (2 - PCV) [facility] Start: 11-30-2017 Mammography [facility] Start: 2015 COLOGUARD (FIT-DNA) COLOGUARD (FIT-DNA) [facility] Start: 2015 Colonoscopy COLONOSCOPY [facility] Start: 2015 COLORECTAL CANCER SCREENING COLORECTAL CANCER SCREENING [facility] Start: [address] COLONOGRAPHY [facility] Start: 2015 DIABETES SCREEN DIABETES SCREEN [facility] Start: 2015 Diabetes Screening Diabetes Screening [facility] Start: 2015 FECAL OCCULT BLOOD FECAL OCCULT BLOOD [facility] Start: 2015 Lipid 1996 panel - Serum or Plasma Lipid Screening [facility] Start: 2015 LIPID SCREEN LIPID SCREEN [facility] Start: 2015 SIGMOIDOSCOPY SIGMOIDOSCOPY [facility] Start: 05-17-2011 HPV TESTING HPV TESTING [facility] Start: 1989 SHINGRIX VACCINE (1 of 2) SHINGRIX VACCINE (1 of 2) [facility] Start: 1989 Urine microalbumin profile [facility] Start: 1988 HEPATITIS C SCREENING HEPATITIS C SCREENING [facility] Start: 1988 HIV SCREENING HIV SCREENING [facility] Start: 1970 HEPATITIS B (1 of 3 - 3-dose series) HEPATITIS B (1 of 3 - 3-dose series) [facility] Start: 1970 Hepatitis B Vaccine (1 of 3 - 3-dose series) Hepatitis B Vaccine (1 of 3 - 3-dose series) [facility] FUNGAL CULTURE AND SMEAR-HAIR,SKIN,NAIL FUNGAL CULTURE AND SMEAR-HAIR,SKIN,NAIL Microbiology Routine Onychodystrophy 01/01/2023 11:28 AM EDT [facility] Work Phone: [facility] Immunizations Immunization Date Immunization Notes Care Provider Regi tam 04-29-2017 pneumococcal polysaccharide vaccine, 23 valent Jhonny Drake SHORTHAND REPORTER.BUMPER STRAIGHTENER Work Phone: [facility] Work Phone: Payers Date Payer Category Payer Medicare MMO MEDICARE MMO MED[employer]VANTAGE HMO [id number] 2018-Present [phone] [address] [place] [address] O [id number] 2018 Unknown [id number] Social History Date Type Detail Facility Start: 11-24-2022 Tobacco smoking stat us ALIS Ex-smoker [facility] End: 04-11-1997 History of tobacco use Current smoker [facility] End: 04-11-1997 History of tobacco use Cigarette Smoker [facility] Start: 11-24-2022 End: 01-01-2023 Cigarettes smoked current (pack per day) - Reported 0.3 [facility] Start: 11-24-2022 Tobacco use and exposure Smoke less tobacco non-user [facility] Start: 11-24-2022 End: 03-30-2023 Alcohol intake Current non-drinker of alcohol (finding) [facility] Start: 11-24-2022 End: 01-01-2023 Tobacco use panel [facility] National Score (1-10 0), lower number is lower risk Not on file [facility] Start: 1970 Sex Assigned At Not on file [facility] Clinical Notes 04-11-2007 to 03-30-2023 Epi Quiles APRN.BUMPER STRAIGHTENER - 03/30/2023 11:33 AM Marianne Martin APRN.MIKA - 02/08/2023 3:41 PM EDRajesh Solorzanoew - 01/23/2023 4:30 PM Kriss Bales LPN - 01/23/2023 4:23 PM EDT Note Date & Type Note Facility 03-30-2023 Note HNO ID: [id number] Author: Epi Quiles APRN.BUMPER STRAIGHTENER Service: ? Author Type: Nurse Practitioner Type: [...] SURGICAL HISTORY OF right wrist surgery S [facility] PAC [id number] Right removed ALLERGIES Patient has no active [...] HCL 2 % MUCOSAL SOLUTION Epi Quiles APRN.[facility] 03-30-2023 History of Presen t illness Narrative [...] SURGICAL HISTORY OF right wrist surgery S [facility] [id number] Right removed ALLERGIES Patient has no active [...] HCL 2 % MUCOSAL SOLUTION Epi Quiles APRN.BUMPER STRAIGHTENER documented in this encounter [facility] 02-08-2023 Note HNO ID: [id number] Author: Marianne Fuller APRN.BUMPER STRAIGHTENER Service: ? Author Type: Nurse Practitioner Type: [...] PAST SURGICAL HISTORY OF right wrist surgery [facility] PAC [id number] Right removed ALLERGIES Mold, Dust And Pollen [...] Patient agreeable to treatment plan. Marianne Fuller APRN.[facility] 02-08-2023 History of Presen t illness Narrative [...] PAST SURGICAL HISTORY OF right wrist surgery [facility] [id number] Right removed ALLERGIES Mold, Dust And Pollen [...] Marianne Fuller APRN.MIKA documented in this encounter [facility] 01-23-2023 Note HNO ID: [id number] Author: Iron Contreras Service: ? Author Type: [...] PAST SURGICAL HISTORY OF right wrist surgery [facility] [id number] Right removed Physical Exam: OBJECTIVE: Constitutional: Pt [...] consider removal of toenail Iron Contreras DPM [facility] 01-23-2023 Note HNO ID: [id number] Author: Kriss Narvaez LPN Service: ? Author Type: LICENSED NURSE Type: Progress Notes Filed: 01/23/2023 10:23 PM Note Text: AMB ROOMING INTAKE FLOWSHEET DATA Patient presents with: Right Foot - Nail Fungus, Established Patient, discuss plan of care Kriss Narvaez LPN [facility] 01-23-2023 History of Presen t illness [...] SURGICAL HISTORY OF right wrist surgery S [facility] PAC [id number] Right removed Physical Exam: OBJECTIVE: Constitutional: Pt [...] Kriss Narvaez LPN documented in this encounter [facility] 01-01-2023 Note HNO ID: [id number] Author: Iron Contreras Service: ? Author Type: [...] weeks. She states she will wear nail samoan during the summer so is not sure [...] SURGICAL HISTORY OF right wrist surgery [facility] PAC [id number] Right removed FAMILY HISTORY Problem Relation Age [...] is lifting di (more content not included)... [facility] 01-01-2023 Note HNO ID: [id number] Author: Sally Villar Service: ? Author Type: ? Type: Progress Notes Filed: 01/01/2023 12:24 PM Note Text: Patient presents with: Right Foot - New, Infection: Great toe infection seen at . Patient has completed a course of keflex and mupirocin topical approx 12 days ago. She states infection has cleared would like treatment for nail fungus. [facility] 01-01-2023 History of Presen t illness Narrative Initial Podiatric Office Visit: Chief Complaint: This 52 year old female who presents with chief complaint:cellulitis of right great toenail with cellulitis HPI Patient presents ot clinic for evaluation of right great toenail Patient states the toenail has been discolored yellow for 3-4 weeks. She states she will wear nail samoan during the summer so is not sure [...] OF right wrist surgery [facility] PAC [id number] Right removed FAMILY HISTORY Problem Relation Age [...] results. Iron Contreras DPM Podiatry [address] [facility] [address] Dept: [phone] Dept Patient presents with: Right Foot - New, Infection: Great toe infection seen at . Patient has completed a course of keflex and mupirocin topical approx 12 days ago. She states infection has cleared would like treatment for nail fungus. documented in this encounter [facility] 12-14-2022 Note HNO ID: [id number] Author: Abby Riley APRN.BUMPER STRAIGHTENER Service: ? Author Type: Nurse Practitioner Type: Progress Notes Filed: 12/14/2022 11:09 AM Note Text: Subjective The history is provided by the patient. No tank tester was used. HPI Kristen Suarez is a 52 year old female who presents today for CC of right great toe redness and swelling around cuticle, tender to touch. She has not used any treatment or medicaitons. She does have an appointment with manager garage in 3 weeks to address possible toe [...] have confirmed and edited as necessary, the [facility] Review of Systems Constitutional: Negative [...] detail warranting prompt ER evaluation. Abby Riley APRN.[facility] 12-14-2022 Miscellaneous Notes Prescriptions sent to pharmacy Abby Riley APRN.MIKA Patient calling and states she was seen by Abby Riley CNP today at [facility] and prescriptions for an antibiotic and a cream were to be sent to [facility] and have not been. Pt states she is at the pharmacy now and asking if provider will send scripts. Please call pt with update at [phone]. Thank you. documented in this encounter [facility] 12-14-2022 Miscellaneous Notes Addended by: ABBY RILEY on: 12/14/2022 11:37 AM Modules accepted: Orders documented in this encounter [facility] 12-14-2022 History of Presen t illness Narrative Images from the original note were not included. Subjective The history is provided by the patient. No tank tester was used. YUSRA Suarez is a 52 year old female who presents today for CC of right great toe redness and swelling around cuticle, tender to touch. She has not used any treatment or medicaitons. She does have an appointment with manager garage in 3 weeks to address possible toe [...] have confirmed and edited as necessary, the [facility] Review of Systems Constitutional: Negative [...] detail warranting prompt ER evaluation. Abby Riley APRN.BUMPER STRAIGHTENER documented in this encounter [facility] 11-24-2022 Note HNO ID: [id number] Author: Jhonny Drake APRN.MIKA Service: ? Author [...] PAST SURGICAL HISTORY OF right wrist surgery [facility] [id number] Right removed ALLERGIES Mold, Dust And Pollen [...] rigidity or tender (more content not included)... [facility] 11-24-2022 History of Presen t illness [...] right wrist surgery [facility] [id number] Right removed ALLERGIES Mold, Dust And Pollen [...] of care. This note was generated using [employer] software. It may contain errors in wording, punctuation, or spelling. 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 documented as of this encounter (statuses as of 12/14/2022) [facility] History of Past illness Narrative* Problem Noted Date Diagnosed Date Resolved Date Reticulosarcoma, 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 documented as of this encounter (statuses as of 12/14/2022) [facility] History of Past illness Narrative* Problem Noted Date Diagnosed Date Resolved Date Reticulosarcoma, 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 documented as of this encounter (statuses as of 01/01/2023) [place] [address]-30-2007 History of Past illness Narrative* Problem Noted Date Diagnosed Date Resolved Date Reticulosarcoma, 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 documented as of this encounter (statuses as of 01/24/2023) [facility] History of Past illness Narrative* Problem Noted Date Diagnosed Date Resolved Date Reticulosarcoma, 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 documented as of this encounter (statuses as of 02/09/2023) [place] [address]30-2007 History of Past illness Narrative* Problem Noted Date Diagnosed Date Resolved Date Reticulosarcoma, 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 documented as of this encounter (statuses as of 03/30/2023) [facility] Herpes zoster with complication- Primary Herpes zoster with unspecified complication [facility] Diagnosis Paronychia of great toe of right foot- Primary Onychia and paronychia of toe [facility] Onychodystrophy- Primary Other specified disease of nail Cellulitis and abscess of toe of right foot [facility] Diagnosis Onychodystrophy- Primary Other specified disease of nail Onychomycosis Dermatophytosis of nail [facility] Diagnosis Acute otitis media, right- Primary Unspecified otitis media [facility] Diagnosis Sore throat- Primary Acute pharyngitis documented in this encounter [facility] Summary Purpose Family History No [...] or prosecute any alcohol or drug abuse patient.[facility] the event this information is protected by the Federal Confidentiality of Alcohol and Drug Abuse Patient Records regulations: The Federal rules restrict any use of the information to criminally investigate or prosecute any alcohol or drug abuse patient.[facility] the event this information is protected by the Federal Confidentiality of Alcohol and Drug Abuse Patient Records regulations: The Federal rules restrict any use of the information to criminally investigate or prosecute any alcohol or drug abuse patient.[facility] the event this information is protected by the Federal Confidentiality of Alcohol and Drug Abuse Patient Records regulations: The Federal rules restrict any use of the information to criminally investigate or prosecute any alcohol or drug abuse patient.[facility] the event this information is protected by the Federal Confidentiality of Alcohol and Drug Abuse Patient Records regulations: The Federal rules restrict any use of the information to criminally investigate or prosecute any alcohol or drug abuse patient.[facility] the event this information is protected by the Federal Confidentiality of Alcohol and Drug Abuse Patient Records regulations: The Federal rules restrict any use of the information to criminally investigate or prosecute any alcohol or drug abuse patient.[facility] the event this information is protected by the Federal Confidentiality of Alcohol and Drug Abuse Patient Records regulations: The Federal rules restrict any use of the information to criminally investigate or prosecute any alcohol or drug abuse patient.[facility] Reason for Visit (unrecogniz ed [...] Care Teams (unrecognized sec tion and content) Operator Engineer Relationship Specialty Start Date End Date Beto Glover DO [address] [facility] [place] [address] PCP - General Family Medicine 12/14/22 Operator Engineer Relationship Specialty Start Date End Date Beto Glover DO [address] [place] [address] PCP - General Family Medicine 12/14/22 Operator Engineer Relationship Specialty Start Date End Date Beto Glover DO [address] [place] [address] PCP - General Family Medicine 12/14/22 INFORMATION [...] BE BASED ON THE PRIMARY CLINICAL RECORDS. [facility]. provides no warranty or guarantee of the accuracy or completeness of information in this document.
[2023-06-06 16:10] LABS: G6PD Quant Test 238 (127-427); Red Blood Cell Count Test/G6PD 4.81 x10E6/uL (3.77-5.28)
== END | disposition home or self-care (01) ==
PROVIDERS: PCP Family Medicine; Referring Provider Internal Medicine Rheumatology; Visit Provider Internal Medicine Rheumatology
DX: M46.90 Unspecified inflammatory spondylopathy, site unspecified (principal); M18.0 Bilateral primary osteoarthritis of first carpometacarpal joints; Z79.899 Other long term (current) drug therapy
CPT/HCPCS: 36415; 82955

== ENCOUNTER → 2023-07-18 | Outpatient (CLI) | payer MEDICARE, SELFPAY ==
--- NOTE | 2023-07-18 10:08 | BI_ITS ---
MAMMOGRAPHY - BILATERAL SCREENING 3-D TOMOSYNTHESIS REASON FOR EXAM: Female, 53 years old. SCREENING FOR BREAST CA PERTINENT HISTORY: No significant family history. TECHNIQUE: 2-D mammograms and 3-D Tomosynthesis of the breast (s) were performed. CAD was performed. COMPARISON: 07/16/2022 FINDINGS: The breast composition is composed of scattered fibroglandular density. Scattered benign calcifications are seen. No dense spiculated masses or suspicious microcalcifications are identified. No architectural distortion is identified. There is no skin thickening or retraction. There has been no significant change since the prior study. BI/SCRN MAMM (CAD)W/JAYLIN BILAT IMPRESSION: No mammographic signs of malignancy. Routine yearly mammograms recommended. ASSESSMENT CATEGORY: BIRADS Category 1: Negative. A letter regarding these results will be sent to the patient by the facility within 30 days. FOLLOW UP RECOMMENDATION: Yearly follow up mammogram recommended. (A) Approximately 10% of breast cancers are not detected by mammography. A normal mammogram should not delay biopsy of a clinically suspicious abnormality. Electronically Signed: Ilia Roper MD at 15:45 EST ,
--- OUTSIDE RECORDS SUMMARY | 2023-07-18 10:45 | XMS RPT_ITS | CCD ---
Author Name Unknown Address [address] [place] [address] Organization [facility] Care Team Providers Care Windows Systems Architect Name Role Phone Beto Sanabria MD Primary Care Provider [phone] Beto Glover DO Primary Care Provider IRON [...] [OTHER] Propensity to adverse reactions (disorder) 8 [facility] Repository Medications Current Medications Medication Drug Class(es) [...] 10:16-0500 Body temperature 100.09 [degF] Epi Quiles APRN.SENIOR OFFICE SUPPORT ASSISTANT [employer]OSA Work Phone: [facility] 03-30-2023 10:16-0500 Body weight 86.09 kg Epi Quiles APRN.SENIOR OFFICE SUPPORT ASSISTANT SOSA Work Phone: [facility] 03-30-2023 10:16-0500 Diastolic blood pressure 80 mm[Hg] Epi Quiles APRN.SENIOR OFFICE SUPPORT ASSISTANT SOSA Work Phone: [facility] 03-30-2023 10:16-0500 Heart rate 88 /min Epi Quiles APRN.SENIOR OFFICE SUPPORT ASSISTANT SOSA Work Phone: [facility] 03-30-2023 10:16-0500 Respiratory rate 20 /min Epi Quiles APRN.SENIOR OFFICE SUPPORT ASSISTANT SOSA Work Phone: [facility] 03-30-2023 10:16-0500 SaO2% (BldA) [Mass fraction] 97 % Epi Quiles APRN.SENIOR OFFICE SUPPORT ASSISTANT SOSA Work Phone: [facility] 03-30-2023 10:16-0500 Systolic blood pressure 110 mm[Hg] Epi Quiles APRN.SENIOR OFFICE SUPPORT ASSISTANT SOSA Work Phone: [facility] 02-08-2023 15:35-0400 Body temperature 98.29 [degF] Marianne Fuller APRN.SENIOR OFFICE SUPPORT ASSISTANT SOSA Work Phone: [facility] 02-08-2023 15:35-0400 Body weight 91.44 kg Marianne Fuller APRN.SENIOR OFFICE SUPPORT ASSISTANT [employer] Work Phone: [facility] 02-08-2023 15:35-0400 Diastolic blood pressure 80 mm[Hg] Marianne Fuller BLOWER INSTALLER.SENIOR OFFICE SUPPORT ASSISTANT SOSA Work Phone: [facility] 02-08-2023 15:35-0400 Heart rate 57 /min Marianne Fuller BLOWER INSTALLER.SENIOR OFFICE SUPPORT ASSISTANT SOSA Work Phone: [facility] 02-08-2023 15:35-0400 Respiratory rate 18 /min Marianne Fuller BLOWER INSTALLER.SENIOR OFFICE SUPPORT ASSISTANT SOSA Work Phone: [facility] 02-08-2023 15:35-0400 SaO2% (BldA) [Mass fraction] 96 % Marianne Fuller BLOWER INSTALLER.SENIOR OFFICE SUPPORT ASSISTANT SOSA Work Phone: [facility] 02-08-2023 15:35-0400 Systolic blood pressure 130 mm[Hg] Marianne Fuller BLOWER INSTALLER.SENIOR OFFICE SUPPORT ASSISTANT SOSA Work Phone: [facility] 12-14-2022 10:08-0400 Body temperature 99.1 [degF] Abby Osvaldo BLOWER INSTALLER.SENIOR OFFICE SUPPORT ASSISTANT SOSA Work Phone: [facility] 12-14-2022 10:08-0400 Body weight 94.53 kg Abby Osvaldo BLOWER INSTALLER.SENIOR OFFICE SUPPORT ASSISTANT SOSA Work Phone: [facility] 12-14-2022 10:08-0400 Diastolic blood pressure 82 mm[Hg] Abby Osvaldo BLOWER INSTALLER.SENIOR OFFICE SUPPORT ASSISTANT SOSA Work Phone: [facility] 12-14-2022 10:08-0400 Heart rate 81 /min Abby Osvaldo BLOWER INSTALLER.SENIOR OFFICE SUPPORT ASSISTANT SOSA Work Phone: [facility] 12-14-2022 10:08-0400 Respiratory rate 18 /min Abby Osvaldo BLOWER INSTALLER.SENIOR OFFICE SUPPORT ASSISTANT SOSA Work Phone: [facility] 12-14-2022 10:08-0400 SaO2% (BldA) [Mass fraction] 95 % Abby Osvaldo BLOWER INSTALLER.SENIOR OFFICE SUPPORT ASSISTANT SOSA Work Phone: [facility] 12-14-2022 10:08-0400 Systolic blood pressure 128 mm[Hg] Abby Osvaldo BLOWER INSTALLER.SENIOR OFFICE SUPPORT ASSISTANT SOSA Work Phone: [facility] 11-24-2022 15:12-0400 Body temperature 99.39 [degF] Jhonny Drake BLOWER INSTALLER.SENIOR OFFICE SUPPORT ASSISTANT SOSA Work Phone: [facility] 11-24-2022 15:12-0400 Body weight 93.53 kg Jhonny Drake BLOWER INSTALLER.SENIOR OFFICE SUPPORT ASSISTANT SOSA Work Phone: [facility] 11-24-2022 15:12-0400 Diastolic blood pressure 80 mm[Hg] Jhonny Drake BLOWER INSTALLER.SENIOR OFFICE SUPPORT ASSISTANT SOSA Work Phone: [facility] 11-24-2022 15:12-0400 Heart rate 72 /min Jhonny Drake BLOWER INSTALLER.SENIOR OFFICE SUPPORT ASSISTANT SOSA Work Phone: [facility] 11-24-2022 15:12-0400 Respiratory rate 21 /min Jhonny Drake BLOWER INSTALLER.SENIOR OFFICE SUPPORT ASSISTANT SOSA Work Phone: [facility] 11-24-2022 15:12-0400 SaO2% (BldA) [Mass fraction] 95 % Jhonny Drake BLOWER INSTALLER.SENIOR OFFICE SUPPORT ASSISTANT [employer]OSA Work Phone: [facility] 11-24-2022 15:12-0400 Systolic blood pressure 138 mm[Hg] Jhonny Drake BLOWER INSTALLER.SENIOR OFFICE SUPPORT ASSISTANT SOSA Work Phone: [facility] Encounters Encounter Date Encounter Type Care Provider Facility Start: 03-30-2023 End: 03-30-2023 [facility] Facility:[facility] Start: 03-30-2023 End: 03-30-2023 Patient encounter procedure Epi Quiles BLOWER INSTALLER.SENIOR OFFICE SUPPORT ASSISTANT SOSA Work Phone: [facility] Procedures Date Procedure Procedure Detail Performing Clinician Start: 03-30-2023 STREP A MOLECULAR (POC) Debra Emerson BLOWER INSTALLER.SENIOR OFFICE SUPPORT ASSISTANT SOSA Work Phone: Start: 01-01-2023 Tiss shaji slide samps skn/hr/nls fngi/ectoparasit Iron Contreras Work Phone: Start: 11-30-2016 Mammography [facility] BLOWER INSTALLER.SENIOR OFFICE SUPPORT ASSISTANT SOSA Work Phone: Plan of Treatment Date Care [...] (2 - PCV) PNEUMOCOCCAL (2 - PCV) [facility] ic Start: 04-29-2018 Pneumococcal vaccination Pneumococcal Vaccine [...] Microbiology Routine Onychodystrophy 01/01/2023 11:28 AM EDT [facility] Work Phone: [facility] Immunizations Immunization Date Immunization Notes Care Provider Regi tam 04-29-2017 pneumococcal polysaccharide vaccine, 23 valent Jhonny Drake BLOWER INSTALLER.SENIOR OFFICE SUPPORT ASSISTANT SOSA Work Phone: [facility] Work Phone: Payers Date Payer Category Payer Medicare MMO MEDICARE MMO [employer]VANTAGE HMO [id number] 2018-Present [phone] [address] [place] [address] O [id number] 2018 Unknown [id number] Social History Date Type Detail Facility Start: 11-24-2022 Tobacco smoking stat us [facility] Ex-smoker [facility] End: 04-11-1997 [...] 1970 Sex Assigned At Not on file [facility] Clinical Notes 04-11-2007 to 03-30-2023 Epi Quiles APRN.SENIOR OFFICE SUPPORT ASSISTANT SOSA - 03/30/2023 11:33 AM Marianne Martin APRN.MIKA - 02/08/2023 3:41 PM EDRajesh Solorzanoew - 01/23/2023 4:30 PM Kriss Bales LPN - 01/23/2023 4:23 PM EDT Note Date & Type Note Facility 03-30-2023 Note HNO ID: [id number] Author: Epi Quiles APRN.SENIOR OFFICE SUPPORT ASSISTANT SOSA Service: ? Author Type: Nurse Practitioner Type: [...] SURGICAL HISTORY [facility] [id number] Right removed ALLERGIES Patient has no active [...] HCL 2 % MUCOSAL SOLUTION Epi Quiles APRN.[facility] 03-30-2023 History of Presen t illness Narrative [...] SURGICAL HISTORY OF right wrist surgery S [facility] [id number] Right removed ALLERGIES Patient has no active [...] HCL 2 % MUCOSAL SOLUTION Epi Quiles APRN.SENIOR OFFICE SUPPORT ASSISTANT SOSA documented in this encounter [facility] 02-08-2023 Note HNO ID: [id number] Author: Marianne Fuller APRN.SENIOR OFFICE SUPPORT ASSISTANT SOSA Service: ? Author Type: Nurse Practitioner Type: [...] PAST SURGICAL HISTORY OF right wrist surgery [facility] [id number] Right removed ALLERGIES Mold, Dust And Pollen [...] symptoms occur. Patient agreeable to treatment plan. Marinane Fuller APRN.[facility] 02-08-2023 History of Presen t illness Narrative [...] PAST SURGICAL HISTORY OF right wrist surgery [facility] [id number] Right removed ALLERGIES Mold, Dust And Pollen [...] [facility] 01-23-2023 Note HNO ID: [id number] Author: Iron Contreras Service: ? Author Type: [...] PAST SURGICAL HISTORY OF right wrist surgery [facility] [id number] Right removed Physical Exam: OBJECTIVE: Constitutional: Pt [...] consider removal of toenail Iron Contreras DPM [facility] 01-23-2023 Note HNO ID: [id number] Author: Kriss Narvaez LPN Service: ? Author Type: LICENSED NURSE Type: Progress Notes Filed: 01/23/2023 10:23 PM Note Text: AMB ROOMING INTAKE FLOWSHEET DATA Patient presents with: Right Foot - Nail Fungus, Established Patient, discuss plan of care Kriss Narvaez LPN [facility] 01-23-2023 History of Presen t illness [...] SURG[facility] [id number] Right removed Physical Exam: OBJECTIVE: Constitutional: Pt [...] [facility] 01-01-2023 Note HNO ID: [id number] Author: Iron Contreras Service: ? Author Type: [...] weeks. She states she will wear nail iranian during the summer so is not sure [...] SURGICAL HISTORY OF right wrist surgery [facility] [id number] Right removed FAMILY HISTORY Problem Relation Age [...] is lifting di (more content not included)... [facility] 01-01-2023 Note HNO ID: [id number] Author: Sally Villar Service: ? Author Type: ? Type: Progress Notes Filed: 01/01/2023 12:24 PM Note Text: Patient presents with: Right Foot - New, Infection: Great toe infection seen at . Patient has completed a course of keflex and mupirocin topical approx 12 days ago. She states infection has cleared would like treatment for nail fungus. [facility] 01-01-2023 History of Presen t illness Narrative Initial Podiatric Office Visit: Chief Complaint: This 52 year old female who presents with chief complaint:cellulitis of right great toenail with cellulitis HPI Patient presents ot clinic for evaluation of right great toenail Patient states the toenail has been discolored yellow for 3-4 weeks. She states she will wear nail iranian during the summer so is not sure [...] OF right wrist surgery [facility] [id number] Right removed FAMILY HISTORY Problem Relation Age [...] results. Iron Contreras DPM Podiatry [address] [facility] [address] Dept: [phone] Dept Patient presents with: Right Foot - New, Infection: Great toe infection seen at . Patient has completed a course of keflex and mupirocin topical approx 12 days ago. She states infection has cleared would like treatment for nail fungus. documented in this encounter [facility] 12-14-2022 Note HNO ID: [id number] Author: Abby Riley APRN.SENIOR OFFICE SUPPORT ASSISTANT SOSA Service: ? Author Type: Nurse Practitioner Type: Progress Notes Filed: 12/14/2022 11:09 AM Note Text: Subjective The history is provided by the patient. No language path was used. HPI Kristen Suarez is a 52 year old female who presents today for CC of right great toe redness and swelling around cuticle, tender to touch. She has not used any treatment or medicaitons. She does have an appointment with clerical supervisor in 3 weeks to address possible toe [...] have confirmed and edited as necessary, the [facility] Review of Systems Constitutional: Negative for chills [...] detail warranting prompt ER evaluation. Abby Riley APRN.[facility] 12-14-2022 Miscellaneous Notes Prescriptions sent to pharmacy Abby Riley APRN.MIKA Patient calling and states she was seen by Abby Riley CNP today at [facility] and prescriptions for an antibiotic and a cream were to be sent to [facility] and have not been. Pt states she is at the pharmacy now and asking if provider will send scripts. Please call pt with update at [phone]. Thank you. documented in this encounter [facility] 12-14-2022 Miscellaneous Notes Addended by: ABBY RILEY on: 12/14/2022 11:37 AM Modules accepted: Orders documented in this encounter [facility] 12-14-2022 History of Presen t illness Narrative Images from the original note were not included. Subjective The history is provided by the patient. No language path was used. YUSRA Suarez is a 52 year old female who presents today for CC of right great toe redness and swelling around cuticle, tender to touch. She has not used any treatment or medicaitons. She does have an appointment with clerical supervisor in 3 weeks to address possible toe [...] have confirmed and edited as necessary, the [facility] Review of Systems Constitutional: Negative for chills [...] detail warranting prompt ER evaluation. Abby Riley APRN.SENIOR OFFICE SUPPORT ASSISTANT [employer]OSA documented in this encounter [facility] 11-24-2022 Note HNO ID: [id number] Author: Jhonny Drake APRN.MIKA Service: ? Author [...] PAST SURGICAL HISTORY OF right wrist surgery [facility] [id number] Right removed ALLERGIES Mold, Dust And Pollen [...] rigidity or tender (more content not included)... [facility] 11-24-2022 History of Presen t illness [...] right wrist surgery [facility] [id number] Right removed ALLERGIES Mold, Dust And Pollen [...] of care. This note was generated using [employer] software. 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 documented as of this encounter (statuses as of 02/09/2023) [place] [address]30-2007 History of Past illness Narrative* Problem Noted [...] paronychia of toe [facility] Onychodyst[facility]- Primary Other specified [...] Care Teams (unrecognized sec tion and content) Windows Systems Architect Relationship Specialty Start Date End Date Beto Glover DO [address] [facility] [place] [address] PCP - General Family Medicine 12/14/22 Windows Systems Architect Relationship Specialty Start Date End Date Beto Glover DO [address] [place] [address] PCP - General Family Medicine 12/14/22 Windows Systems Architect Relationship Specialty Start Date End Date Beto Glover DO [address] [place] [address] PCP - General Family Medicine 12/14/22 INFORMATION [...] BE BASED ON THE PRIMARY CLINICAL RECORDS. [facility] [employer] [facility]. provides no warranty or guarantee of the accuracy or completeness of information in this document.
== END | disposition home or self-care (01) ==
LOC: OPBI 10:08
PROVIDERS: PCP Family Medicine; Referring Provider Internal Medicine Hematology & Oncology; Visit Provider Internal Medicine Hematology & Oncology
DX: Z12.31 Encounter for screening mammogram for malignant neoplasm of breast (principal)
CPT/HCPCS: 77063; 77067

== ENCOUNTER → 2023-07-30 | Outpatient (CLI) | payer MEDICARE, SELFPAY ==
[2023-07-30 17:54] LABS: Absolute Lymphocyte Count 2.75 X10^3/uL (0.83-4.51); Absolute Neutrophil Count 6.4 X10^3/uL (2.0-7.7); Basophil# 0.06 X10^3/uL; Basophil% 0.6 % (0-1); Eosinophil# 0.34 X10^3/uL; Eosinophils% 3.3 % (0-5); Hematocrit 36.5 % (37-47); Hemoglobin 11.4 g/dL (12.0-15.0); Lymphocyte # 2.75 X10^3/ul (0.83-4.51); Lymphocyte % 26.6 % (19-41); Mean Corp Hgb Conc 31.2 g/dL (32-36); Mean Corpuscular Hgb 26.7 pg (27.0-32.0); Mean Corpuscular Volume 85.5 fL (81-99); Mean Platelet Vol. 11.1 fl (6.2-12.0); Monocyte# 0.68 X10^3/uL; Monocyte% 6.6 % (0-10); NRBC Flagged by Analyzer 0 % (0-5); Neutrophil # 6.43 X10^3/uL (2.7-7.7); Neutrophil % 62.3 % (47-70); Platelet Count 354 K/mm3 (150-450); RBC Distribution Width CV 14.2 % (11.6-14.6); RBC Distribution Width SD 43.8 fl (35.1-43.9); Red Blood Count 4.27 M/mm3 (4.2-5.4); White Blood Count 10.3 K/mm3 (4.4-11.0)
[2023-07-30 18:27] LABS: ALB/GLOB Ratio 0.9 RATIO (0.9-2.4); AST(SGOT) 15 U/L (15-37); Alanine Aminotransfer ALT/SGPT 23 U/L (13-56); Albumin, Serum 3.4 g/dL (3.2-5.0); Alkaline Phosphatase 73 U/L (45-117); Anion Gap 7 (5-15); BUN 20 mg/dL (7-18); BUN/Creat Ratio 25.2 RATIO (10-20); Calcium,Total 9.5 mg/dL (8.5-10.1); Chloride 104 mmol/L (98-107); Creatinine, Serum 0.79 mg/dL (0.55-1.02); EST Glomerular Filtration Rate 81 mL/min (>60); Est Glom Filt Rate - Afr Amer 97 mL/min (>60); Globulin 3.8 g/dL (2.2-4.2); Glucose 105 mg/dL (74-106); Potassium 3.5 mmol/L (3.5-5.1); Protein, Total 7.2 g/dL (6.4-8.2); Sodium Level 138 mmol/L (136-145)
== END | disposition home or self-care (01) ==
LOC: MTLAB 16:21
PROVIDERS: PCP Family Medicine; Referring Provider Internal Medicine Rheumatology; Visit Provider Internal Medicine Rheumatology
DX: M46.90 Unspecified inflammatory spondylopathy, site unspecified (principal); M18.0 Bilateral primary osteoarthritis of first carpometacarpal joints; Z79.899 Other long term (current) drug therapy
CPT/HCPCS: 36415; 80053; 85025

== ENCOUNTER → 2023-09-17 | Outpatient (CLI) | payer MEDICARE, SELFPAY ==
[2023-09-17 15:44] LABS: Absolute Lymphocyte Count 1.92 X10^3/uL (0.83-4.51); Absolute Neutrophil Count 4.6 X10^3/uL (2.0-7.7); Basophil# 0.04 X10^3/uL; Basophil% 0.6 % (0-1); Eosinophil# 0.18 X10^3/uL; Eosinophils% 2.5 % (0-5); Hematocrit 35.8 % (37-47); Hemoglobin 11.2 g/dL (12.0-15.0); Lymphocyte # 1.92 X10^3/ul (0.83-4.51); Lymphocyte % 26.6 % (19-41); Mean Corp Hgb Conc 31.3 g/dL (32-36); Mean Corpuscular Hgb 26.9 pg (27.0-32.0); Mean Corpuscular Volume 86.1 fL (81-99); Mean Platelet Vol. 11.2 fl (6.2-12.0); Monocyte# 0.47 X10^3/uL; Monocyte% 6.5 % (0-10); NRBC Flagged by Analyzer 0 % (0-5); Neutrophil % 63.5 % (47-70); Platelet Count 322 K/mm3 (150-450); RBC Distribution Width CV 13.9 % (11.6-14.6); RBC Distribution Width SD 43.8 fl (35.1-43.9); Red Blood Count 4.16 M/mm3 (4.2-5.4); White Blood Count 7.2 K/mm3 (4.4-11.0)
[2023-09-17 16:13] LABS: ALB/GLOB Ratio 1.1 RATIO (0.9-2.4); AST(SGOT) 14 U/L (15-37); Alanine Aminotransfer ALT/SGPT 21 U/L (13-56); Albumin, Serum 3.6 g/dL (3.2-5.0); Alkaline Phosphatase 77 U/L (45-117); Anion Gap 4 (5-15); BUN 14 mg/dL (7-18); Calcium,Total 9.4 mg/dL (8.5-10.1); Chloride 99 mmol/L (98-107); Creatinine, Serum 0.74 mg/dL (0.55-1.02); EST Glomerular Filtration Rate 87 mL/min (>60); Est Glom Filt Rate - Afr Amer 106 mL/min (>60); Globulin 3.4 g/dL (2.2-4.2); Glucose 99 mg/dL (74-106); Potassium 3.8 mmol/L (3.5-5.1); Sodium Level 132 mmol/L (136-145)
== END | disposition home or self-care (01) ==
LOC: MTLAB 13:22
PROVIDERS: PCP Family Medicine; Referring Provider Internal Medicine Rheumatology; Visit Provider Internal Medicine Rheumatology
DX: M46.90 Unspecified inflammatory spondylopathy, site unspecified (principal); Z79.899 Other long term (current) drug therapy
CPT/HCPCS: 36415; 80053; 85025

== ENCOUNTER → 2024-02-10 | Outpatient (CLI) | payer MEDICARE, SELFPAY | END | disposition home or self-care (01) | LOC: LABSPEC 17:15 | PROVIDERS: PCP Family Medicine; Referring Provider Otolaryngology Otolaryngology/Facial Plastic Surgery; Visit Provider Otolaryngology Otolaryngology/Facial Plastic Surgery | DX: J32.9 Chronic sinusitis, unspecified (principal) | CPT/HCPCS: 87070; 87205 ==

== ENCOUNTER → 2024-04-20 | Outpatient (CLI) | payer MEDICARE, SELFPAY | END | disposition home or self-care (01) | LOC: BFHLAB 10:12 → LABSPEC 10:14 | PROVIDERS: PCP Family Medicine; Referring Provider Family Medicine; Visit Provider Family Medicine | DX: R82.90 Unspecified abnormal findings in urine (principal) | CPT/HCPCS: 87086; 87088; 87186 ==

== ENCOUNTER → 2024-05-15 | Outpatient (CLI) | payer MEDICARE, SELFPAY ==
[2024-05-15 16:41] LABS: Color, Urine Yellow (Yellow); Glucose, Dipstick Normal (Normal); Ketone-Dipstick Negative (Negative); Leukocyte Esterase-Dipstick 25 /ul (Negative); Nitrite-Dipstick Negative (Negative); Occult Blood-Urine Negative /ul (Negative); Protein-Dipstick Negative (Negative); Specific Gravity, Urine 1.015 (1.002-1.030); Urine Bilirubin Dipstick Negative (Negative); Urine Clarity Clear (Clear); Urine Urobilinogen 1 mg/dl (Normal)
== END | disposition home or self-care (01) ==
PROVIDERS: PCP Family Medicine; Referring Provider Family Medicine; Visit Provider Family Medicine
DX: N39.0 Urinary tract infection, site not specified (principal)
CPT/HCPCS: 81002; 87086; 87088

== ENCOUNTER → 2024-06-02 | Outpatient (CLI) | payer MEDICARE, SELFPAY ==
--- NOTE | 2024-06-02 08:53 | BD_ITS ---
STUDY: DUAL ENERGY X-RAY ABSORPTIOMETRY / DXA REASON FOR EXAM: Female, 53 years old. UPDATE BMD TECHNIQUE: Bone Mineral Density (BMD) measurements of lumbar spine and bilateral hips were obtained. COMPARISON: Comparison is made with prior study of September 19, 2021. FINDINGS: Lumbar Spine (L1-L4): g/cm2 (0.799) / T-score (-2.3) / Z-score (-1.3) Findings are suggestive of osteopenia with a moderate fracture risk. Left Femur Total: g/cm2 (0.843) / T-score (-0.8) / Z-score (-0.2) Left Femoral Neck: g/cm2 (0.741) / T-score (-1.0) / Z-score (0.0) Right Femur Total: g/cm2 (0.914) / T-score (-0.2) / Z-score (0.4) Right Femoral Neck: g/cm2 (0.696) / T-score (-1.4) / Z-score (-0.4) The T-Scores on the most recent prior examination were: Lumbar Spine (L1-L4): There has been worsening of bone density since the previous examination. Left Femur Total: which represents a worsening of 2.1%. Right Femur Total: which represents a worsening of 0.9%. BD/Dexa Bone Density Study IMPRESSION: The patient is considered osteopenic as outlined below according to World Fco Organization (WHO) criteria with a high fracture risk. There has been worsening of bone density since the previous examination. Reference Information: The T-score is the number of standard deviations above or below the standard which is normal for young adults at their peak bone mineral density. The World Health Organization (WHO) interprets the T-scores as follows: Above -1 Normal bone density Between -1 and -2.5 Osteopenia Equal to / or below -2.5 Osteoporosis As a practical clinical guideline, osteopenia may be graded as follows: Mild -1 through -1.5 Moderate -1.6 through -2.0 Severe -2.1 through -2.4 The Z-score is the number of standard deviations above or below age-matched controls. A Z-score of less than -1.5 would be considered abnormal. References: 1. NIH Osteoporosis and Related Bone Diseases www osteo.org 2. International Society for Clinical Densitometry www iscd.org 3. National Osteoporosis Foundation www nof.org Electronically Signed: Alex Tijerina MD at 13:51 EST ,
== END | disposition home or self-care (01) ==
LOC: OPBD 08:49
PROVIDERS: PCP Family Medicine; Referring Provider Family Medicine; Visit Provider Family Medicine
DX: M81.0 Age-related osteoporosis without current pathological fracture (principal)
CPT/HCPCS: 77080

== ENCOUNTER → 2024-06-08 | Outpatient (CLI) | payer MEDICARE, SELFPAY ==
[2024-06-08 12:41] LABS: Vitamin D,25 Hydroxy 63.9 ng/mL
== END | disposition home or self-care (01) ==
LOC: LAB 11:39
PROVIDERS: PCP Family Medicine; Referring Provider Family Medicine; Visit Provider Family Medicine
DX: E55.9 Vitamin D deficiency, unspecified (principal)
CPT/HCPCS: 36415; 82306

== ENCOUNTER → 2024-07-20 | Outpatient (CLI) | payer MEDICARE, SELFPAY ==
--- NOTE | 2024-07-20 09:05 | BI_ITS ---
PROCEDURE: SCRN MAMM (CAD)W/JAYLIN BILAT REASON FOR EXAM: F, Age 54 y/o, grandmother with breast cancer. TECHNIQUE: Bilateral screening digital breast tomosynthesis with 2D and 3D images. Computer aided detection. COMPARISON: Prior exam(s) dating back to July 18, 2023.. FINDINGS: The breasts are almost entirely fatty. Stable bilateral fat containing axillary lymph nodes. Stable examination. No suspicious masses, areas of developing architectural distortion, or suspicious calcifications. BI/SCRN MAMM (CAD)W/JAYLIN BILAT IMPRESSION: BI-RADS 2: BENIGN. RECOMMEND ANNUAL MAMMOGRAPHIC SCREENING. Follow-up code: Routine Follow-up The patient will be notified of the results by letter. Reading Location: [place] [address]
== END | disposition home or self-care (01) ==
LOC: OPBI 09:05
PROVIDERS: PCP Family Medicine; Referring Provider Internal Medicine Hematology & Oncology; Visit Provider Internal Medicine Hematology & Oncology
DX: Z12.31 Encounter for screening mammogram for malignant neoplasm of breast (principal)
CPT/HCPCS: 77063; 77067